=== PATIENT | female | born 1950 | race Caucasian/White ===

== ENCOUNTER 2020-02-28 07:58 | Outpatient (REF) | payer OTHER, SELFPAY | END 2020-02-28 07:59 | disposition home or self-care (01) | LOC: HO.LAB 07:58 | PROVIDERS: PCP Internal Medicine; Visit Provider Internal Medicine | DX: Z20.828 Contact with and (suspected) exposure to other viral communicable diseases (principal) | CPT/HCPCS: C9803; U0003 ==

== ENCOUNTER 2022-04-05 14:18 | Outpatient (REF) | payer OTHER, SELFPAY ==
--- NOTE | ~2022-04-05 | XR_ITS ---
EXAMINATION: THORACIC SPINE, LUMBAR SPINE, AND AP PELVIS. CLINICAL INFORMATION: DORSALGIA, LOW BACK PAIN, PELVIC PAIN. COMPARISON: February 12, [address] scan of March 05, 2010 TECHNIQUE: Three-view thoracic spine, three-view lumbar spine, and AP pelvis. FINDINGS: There has been mild interval superior endplate compression fracture of T12 without significant loss of height since previous spine study of February 27, [address] scan of March 05, 2010. There is mild marginal spurring seen at multiple levels without significant disc space narrowing appreciated. No destructive bony lesions identified. No abnormal paraspinal line bulge is seen. Pedicles appear intact. Patient is status post previous gastric surgery. 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 There are 5 nonrib-bearing lumbar vertebra. There is a mild compression fracture superior endplate of T12. This may be acute or chronic. There is moderate narrowing of the L5-S1 disc space. No spondylolisthesis or spondylolysis is appreciated. There is facet arthropathy seen bilaterally at the L5-S1 level. There is some degenerative sclerosis seen about the sacroiliac joints bilaterally. AP film of the pelvis does not demonstrate any evidence of acute fracture or diastases. Hip joint spaces appear maintained. No destructive bony lesions identified. XR/XR pelvis 1-2V IMPRESSION: No evidence of acute fracture or diastases of the pelvis. Mild superior endplate compression fracture of T12 which was not evident on previous studies and may be acute or chronic in nature. Facet arthropathy L5-S1 bilaterally.
--- NOTE | ~2022-04-05 | XR_ITS ---
EXAMINATION: THORACIC SPINE, LUMBAR SPINE, AND AP PELVIS. CLINICAL INFORMATION: DORSALGIA, LOW BACK PAIN, PELVIC PAIN. COMPARISON: February 12, [address] scan of March 05, 2010 TECHNIQUE: Three-view thoracic spine, three-view lumbar spine, and AP pelvis. FINDINGS: There has been mild interval superior endplate compression fracture of T12 without significant loss of height since previous spine study of February 27, [address] scan of March 05, 2010. There is mild marginal spurring seen at multiple levels without significant disc space narrowing appreciated. No destructive bony lesions identified. No abnormal paraspinal line bulge is seen. Pedicles appear intact. Patient is status post previous gastric surgery. 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 There are 5 nonrib-bearing lumbar vertebra. There is a mild compression fracture superior endplate of T12. This may be acute or chronic. There is moderate narrowing of the L5-S1 disc space. No spondylolisthesis or spondylolysis is appreciated. There is facet arthropathy seen bilaterally at the L5-S1 level. There is some degenerative sclerosis seen about the sacroiliac joints bilaterally. AP film of the pelvis does not demonstrate any evidence of acute fracture or diastases. Hip joint spaces appear maintained. No destructive bony lesions identified. XR/XR thoracic spine 3V IMPRESSION: No evidence of acute fracture or diastases of the pelvis. Mild superior endplate compression fracture of T12 which was not evident on previous studies and may be acute or chronic in nature. Facet arthropathy L5-S1 bilaterally.
--- NOTE | ~2022-04-05 | XR_ITS ---
EXAMINATION: THORACIC SPINE, LUMBAR SPINE, AND AP PELVIS. CLINICAL INFORMATION: DORSALGIA, LOW BACK PAIN, PELVIC PAIN. COMPARISON: February 12, [address] scan of March 05, 2010 TECHNIQUE: Three-view thoracic spine, three-view lumbar spine, and AP pelvis. FINDINGS: There has been mild interval superior endplate compression fracture of T12 without significant loss of height since previous spine study of February 27, [address] scan of March 05, 2010. There is mild marginal spurring seen at multiple levels without significant disc space narrowing appreciated. No destructive bony lesions identified. No abnormal paraspinal line bulge is seen. Pedicles appear intact. Patient is status post previous gastric surgery. 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 There are 5 nonrib-bearing lumbar vertebra. There is a mild compression fracture superior endplate of T12. This may be acute or chronic. There is moderate narrowing of the L5-S1 disc space. No spondylolisthesis or spondylolysis is appreciated. There is facet arthropathy seen bilaterally at the L5-S1 level. There is some degenerative sclerosis seen about the sacroiliac joints bilaterally. AP film of the pelvis does not demonstrate any evidence of acute fracture or diastases. Hip joint spaces appear maintained. No destructive bony lesions identified. XR/XR lumbar spine 2-3V IMPRESSION: No evidence of acute fracture or diastases of the pelvis. Mild superior endplate compression fracture of T12 which was not evident on previous studies and may be acute or chronic in nature. Facet arthropathy L5-S1 bilaterally.
== END 2022-04-05 14:19 | disposition home or self-care (01) ==
LOC: HO.HMGCX 14:18
PROVIDERS: PCP Internal Medicine; Visit Provider Physician Assistant
DX: M54.9 Dorsalgia, unspecified (principal); M54.50 Low back pain, unspecified; R10.2 Pelvic and perineal pain
CPT/HCPCS: 72072; 72100; 72170

== ENCOUNTER → 2022-06-10 09:54 | Outpatient (BNVA) | payer OTHER, SELFPAY | PROVIDERS: PCP Internal Medicine; Visit Provider Nurse Practitioner Family | DX: M51.36 Other intervertebral disc degeneration, lumbar region (principal); M47.816 Spondylosis without myelopathy or radiculopathy, lumbar region; M47.12 Other spondylosis with myelopathy, cervical region; M47.22 Other spondylosis with radiculopathy, cervical region; M70.61 Trochanteric bursitis, right hip; M70.62 Trochanteric bursitis, left hip | CPT/HCPCS: 99202 ==

== ENCOUNTER → 2022-06-30 08:25 | Outpatient (BNVA) | payer OTHER, SELFPAY | PROVIDERS: PCP Internal Medicine; Visit Provider Nurse Practitioner Family | DX: M51.36 Other intervertebral disc degeneration, lumbar region (principal); M47.816 Spondylosis without myelopathy or radiculopathy, lumbar region; M81.0 Age-related osteoporosis without current pathological fracture; M54.59 Other low back pain; M47.12 Other spondylosis with myelopathy, cervical region; M47.22 Other spondylosis with radiculopathy, cervical region; S22.080D Wedge compression fracture of T11-T12 vertebra, subsequent encounter for fracture with routine healing | CPT/HCPCS: 99212 ==

== ENCOUNTER 2022-07-21 19:16 | Outpatient (REF) | payer OTHER, SELFPAY ==
--- NOTE | ~2022-07-21 | MR_ITS ---
EXAMINATION: MR LUMBAR SPINE WITHOUT CONTRAST CLINICAL INFORMATION: Low back pain. COMPARISON: Lumbar spine radiographs 04/05/2022. TECHNIQUE: MRI of the lumbar spine was obtained using routine sequences without contrast. FINDINGS: There is bone marrow edema associated with an acute to subacute compression fracture of the T12 vertebral body. There is impaction of the upper endplate resulting in approximately 40% vertebral height loss anteriorly. No retropulsion of the posterior cortex at this level. Vertebral heights are otherwise maintained. There is slight grade 1 anterolisthesis of L5 on S1 that appears to be related to advanced facet degenerative changes at this level. Slight loss of intervertebral disc height and T2 signal intensity at multiple levels within the lumbar spine related to disc degeneration. The tip of the conus medullaris is located at L2. No mass effect on the conus. Visualized distal cord signal intensity is normal. At L1-L2 there is a slightly bulging disc. No canal stenosis. No mass effect on the traversing or foraminal nerve roots. At L2-L3 there is a bulging disc. Bilateral facet degenerative change. No canal stenosis. No mass effect on traversing or foraminal nerve roots. At L3-L4 there is a diffusely bulging disc. Bilateral facet degenerative change. Mild canal stenosis. No mass effect on the traversing or foraminal nerve roots. At L4-L5 there is a diffusely bulging disc. Advanced facet degenerative change. Mild canal stenosis. Subarticular zone narrowing causes abutment of both traversing L5 nerve roots. No foraminal nerve root compression. At L5-S1 there is a diffusely bulging disc. Advanced bilateral facet degenerative change. No canal stenosis. No substantial mass effect on the traversing or foraminal nerve roots. Limited visualization of the retroperitoneal anatomy reveals no abnormal finding. Psoas and paraspinal muscle groups are symmetric. MR/MR lumbar spine wo con IMPRESSION: There is bone marrow edema associated with an acute to subacute compression fracture of the T12 vertebral body. There is impaction of the upper endplate resulting in approximately 40% vertebral height loss anteriorly. No retropulsion of the posterior cortex at this level. There is multilevel degenerative spondylosis of the lumbar spine with slight grade 1 anterolisthesis of L5 on S1 related to advanced facet degenerative changes at this level. Mild canal stenosis at L3-L4 and L4-L5. Otherwise no canal compromise. Subarticular zone narrowing at L4-L5 causes abutment of both traversing L5 nerve roots. Otherwise no substantial mass effect on the traversing or foraminal nerve roots elsewhere within the lumbar spine.
== END 2022-07-21 19:17 | disposition home or self-care (01) ==
LOC: HO.MRI 19:16
PROVIDERS: PCP Internal Medicine; Visit Provider Nurse Practitioner Family
DX: M47.816 Spondylosis without myelopathy or radiculopathy, lumbar region (principal); M51.36 Other intervertebral disc degeneration, lumbar region; M81.0 Age-related osteoporosis without current pathological fracture; M54.59 Other low back pain
CPT/HCPCS: 72148

== ENCOUNTER → 2022-07-22 10:09 | Outpatient (REF) | payer OTHER, SELFPAY ==
--- NOTE | ~2022-07-22 | NM_ITS ---
EXAMINATION: NM BONE SCAN OF THE WHOLE BODY CLINICAL INFORMATION: Other intervertebral disc degeneration, lumbar region. COMPARISON: The previous bone scan dated 02/01/2008 is available for comparison. Radiographs of the lumbosacral and thoracic spine and pelvis dated 04/05/2022 and MRI of the lumbar spine dated 07/21/2022 are available for comparison. TECHNIQUE: Multiple gamma scintillation camera images of the whole body were performed 2.5 hours following the intravenous administration of 31 mCi Tc-99m MDP. FINDINGS: In the head, no significant abnormalities are present. In the thoracic cage and upper extremities, there is minimally increased activity in the acromioclavicular joints bilaterally and at the sternomanubrial articulation. In the spine, there is moderately increased activity in the T12 vertebral body. Foci of mildly increased activity are present bilaterally in the posterior elements at L5/S1 probably due to facet arthropathy and very faintly in the left side of the mid cervical spine, probably in the posterior elements and also probably due to to facet arthropathy. In the pelvis, no significant abnormalities are noted. In the lower extremities, there is mildly increased activity in the patellae bilaterally and a focus of mildly increased activity is present in the lateral malleolus of the left ankle. There is mildly increased activity in the right first metatarsophalangeal joint region. No other definite bony abnormalities are noted. The urinary bladder and faint visualization of both kidneys are noted. The 07/21/2022 MRI shows compression fracture deformity in the superior endplate of T12 that corresponds to the prominent bone scan abnormality described above on the current study. Also corresponding to the current study is bilateral facet arthropathy at L5/S1. NM/NM bone scan whole body IMPRESSION: 1. A recent compression traction is visualized at T12. 2. Additional mild abnormalities in the left side of the mid cervical spine and bilaterally at L5-S1 are likely due to facet arthropathy. 3. A few additional mild nonspecific abnormalities are noted as described above and these are all likely arthritic or traumatic in etiology. None of these abnormalities is strongly suspicious for metastatic disease.
== END ==
LOC: HO.NUCMED 10:09
PROVIDERS: PCP Internal Medicine; Visit Provider Nurse Practitioner Family
DX: M47.12 Other spondylosis with myelopathy, cervical region (principal); M47.22 Other spondylosis with radiculopathy, cervical region; M47.816 Spondylosis without myelopathy or radiculopathy, lumbar region; M51.36 Other intervertebral disc degeneration, lumbar region; M54.59 Other low back pain; M81.0 Age-related osteoporosis without current pathological fracture; S22.080A Wedge compression fracture of T11-T12 vertebra, initial encounter for closed fracture
CPT/HCPCS: 78306; A9503

== ENCOUNTER → 2022-07-26 14:21 | Outpatient (BNVA) | payer OTHER, SELFPAY | PROVIDERS: PCP Internal Medicine; Visit Provider Nurse Practitioner Family ==

== ENCOUNTER 2022-08-18 10:54 | Day surgery (SDC) | payer OTHER, SELFPAY ==
[2022-08-15 10:05] VITALS: BMI 38.2
--- NOTE | 2022-08-17 09:05 | HO.ANESPROP2 ---
Documented by User: Christi Vanessa NP 08/17/22 09:10 HPI - Anesthesia Eval Consult details Narrative: 72yo F for T12 Kyphoplasty Last labs and EKG requested from [facility] Active Problems Active Problems: All Active Problems (Updated 06/30/22 @ 15:08 by LETY Mendes) Discogenic lumbar pain (Acute) Lumbar spondylosis (Acute) Cervical spondylosis with myelopathy and radiculopathy (Acute) T12 compression fracture (Acute) Osteoporosis (Acute) Greater trochanteric bursitis of both hips (Acute) Lumbar degenerative disc disease (Acute) Past Medical History Medical History Cervical spondylosis with myelopathy and radiculopathy COPD (chronic obstructive pulmonary disease) Depression GERD (gastroesophageal reflux disease) Hyperlipidemia Left shoulder pain Left-sided weakness Lumbar spondylosis Osteoporosis T12 compression fracture Surgical History Surgical History H/O cervical spine surgery H/O: section History of gastric bypass Social History Social History Alcohol intake: current Alcohol intake frequency: a few times a month Patient Tobacco Use Status: Former Tobacco user Quit Date: 2007 Tobacco use type: Cigarette Smoked in Last 30 Days: No Use of substances other than those prescribed or required for medical reasons: No Substance Use Type: Caffiene Are you DNR?: No Advance Directives: No Advance Directives Information Provided: Yes Meds Allergies Allergy/AdvReac Type Severity Reaction Status Date / Time alendronate sodium Allergy Unknown Chest Pain Verified 08/18/22 11:15 [From Fosamax] Home Medications Medication Instructions Recorded Confirmed Last Taken Type albuterol sulfate 90 mcg/actuation 1 puff inhalation QID 04/05/22 08/18/22 08/18/22 History aerosol inhaler ergocalciferol (vitamin D2) 1,250 1,250 mcg PO QWEEK 04/05/22 08/18/22 08/18/22 History mcg (50,000 unit) capsule (Vitamin D2) fluoxetine 10 mg capsule 10 mg PO DAILY 04/05/22 08/18/22 08/18/22 History fluticasone fur. 100 mcg-umeclid 1 ea inhalation DAILY 04/05/22 08/18/22 08/18/22 History 62.5 mcg-vilant 25 mcg inhalat.powder (Trelegy Ellipta) rosuvastatin 10 mg tablet 10 mg PO BEDTIME 04/05/22 08/18/22 08/18/22 History Tylenol 08/18/22 08/18/22 History Exam Exam Date and Time: August 17, [id number] Height,Weight and Vital Signs: Height 5 ft Weight 88.904 kg Assessment and Plan Assessment Anesthesia Assessment: Chart Reviewed Documented by User: Tremayne Parks MD 08/18/22 14:45 [facility] Past Medical History Medical History Cervical spondylosis with myelopathy and radiculopathy COPD (chronic obstructive pulmonary disease) Depression GERD (gastroesophageal reflux disease) Hyperlipidemia Left shoulder pain Left-sided weakness Lumbar spondylosis Osteoporosis T12 compression fracture Family History Family history of problems with anesthesia: No Surgical History Surgical History H/O cervical spine surgery H/O: section History of gastric bypass Social History Social History Alcohol intake: current Alcohol intake frequency: a few times a month Patient Tobacco Use Status: Former Tobacco user Quit Date: 2007 Tobacco use type: Cigarette Smoked in Last 30 Days: No Use of substances other than those prescribed or required for medical reasons: No Substance Use Type: Caffiene Are you DNR?: No Advance Directives: No Advance Directives Information Provided: Yes Meds Allergies Allergy/AdvReac Type Severity Reaction Status Date / Time alendronate sodium Allergy Unknown Chest Pain Verified 08/18/22 11:15 [From Fosamax] Home Medications Medication Instructions Recorded Confirmed Last Taken Type albuterol sulfate 90 mcg/actuation 1 puff inhalation QID 04/05/22 08/18/22 08/18/22 History aerosol inhaler ergocalciferol (vitamin D2) 1,250 1,250 mcg PO QWEEK 04/05/22 08/18/22 08/18/22 History mcg (50,000 unit) capsule (Vitamin D2) fluoxetine 10 mg capsule 10 mg PO DAILY 04/05/22 08/18/22 08/18/22 History fluticasone fur. 100 mcg-umeclid 1 ea inhalation DAILY 04/05/22 08/18/22 08/18/22 History 62.5 mcg-vilant 25 mcg inhalat.powder (Trelegy Ellipta) rosuvastatin 10 mg tablet 10 mg PO BEDTIME 04/05/22 08/18/22 08/18/22 History Tylenol 08/18/22 08/18/22 History Exam Airway TM Dist: >3cm Neck ROM: Full Assessment and Plan Assessment Anesthesia Assessment: Anesthesia Plan Discussed Final Anesthetic Review Family History of Problems with Anesthesia: No NPO: Yes ASA Class: III Final Preanesthetic Review: No Changes in Pt Med Stat, Meds/Allgs Chart Reviewed, Consent Obtained/Reviewed and Anes Risks/Benef Reviewed Patient Risk: Intermediate Procedure Risk: Intermediate Anesthetic Plan Anesthetic Plan: MAC: Disposition: Standard PACU
--- NOTE | ~2022-08-18 | FL_ITS ---
EXAMINATION: XR FLUOROSCOPY WITH IMAGES CLINICAL INFORMATION: T12 kyphoplasty. COMPARISON: Radionuclide bone scan 07/22/2022, MR lumbar spine 07/21/2022 TECHNIQUE: Fluoroscopy Supervised By: Dr. Pancho Olsen. Fluoroscopy Time: 3 minutes. Cumulative Dose: 117.5 mGy. DAP: 16.783 Gycm2. Images: 2. FINDINGS: There is high attenuation density consistent with vertebral augmentation within the compressed T12 vertebral body. No extra vertebral contrast demonstrated. There are degenerative disc changes T11-T12. FL/FL guidance in OR IMPRESSION: Fluoroscopy for pain management procedure, T12 kyphoplasty.
[2022-08-18 11:17] VITALS: BP 137/75; PULSE 90; RESP 16; TEMP 36.3; O2SAT 96; BMI 37.9
[2022-08-18] MEDS: Lactated Ringers 1,000 ML 100 ML IVCONT (12:09)
--- NOTE | 2022-08-18 12:57 | P.HPSUR_ITS ---
Pre-Procedural Eval Section A Date of Service: 08/18/22 The patient is an INPATIENT: No Changes since office visit: Yes Patient answered all questions The History & Physical has been completed within 30 days and I have reviewed it.: No Section B Chief Complaint: wedge compression fx T11-T12 vertebra,osteoprosis Details of Present Illness: as above Relevant Family History (Specify if Yes): No Relevant Social History: Other (specify) Present Medications: None Medical History: No relevant PMH History of Previous Operations: No relevant previous surgery Allergies: Allergies Allergy/AdvReac Type Severity Reaction Status Date / Time alendronate sodium Allergy Unknown Chest Pain Verified 08/18/22 11:15 [From Fosamax] Review of Systems Sugical H&P ROS: Negative: Constitution, Cardiovascular, Respiratory, Neurological, Psychiatric, Hem-Onc, Allergic/Immunologic, Gastrointestinal, Genitourinary, Integumentary and Eyes/Ears/Nose/Throat and Yes, Specify: Mu sculoskeletal (spinal stenosis) and Endocrine (osteoporosis) Exam Surgical H&P Exam: Normal: HEENT, Normal: Heart, Normal: Lungs, Normal: Extremities, Normal: Abdomen, Normal: Skin and Normal: Neurological Plan Diagnosis/Plan: Unchanged I have reviewed the history and physical and performed a pertinent physical examination on my patient. No changes have occurred unless specified. Time Spent With Patient Time: Total time managing care of this patient today ____ minutes.
--- NOTE | 2022-08-18 15:13 | P.BOP_ITS ---
Brief Operative Note Date of Service: 08/18/22 Pre-op diagnosis: Osteoporosis T12 compression fracture Post-op diagnosis: same Procedure: T12 vertebra kyphoplasty Implants: polymethyl methacrylate Cement Surgeon: Pancho Olsen MD Anesthesia: MAC Was an Greenhouse Assistant used for this Procedure?: No Estimated blood loss (mL): 5 Condition: stable Disposition: PACU
[2022-08-18 15:15] VITALS: BP 120/70; PULSE 88; RESP 18; TEMP 36.5; O2SAT 97
--- NOTE | 2022-08-18 15:16 | W.PM.OPN ---
Operative Note Operative Note Date of Service: 08/18/22 Narrative: T12 baloon kyphoplasty. The patient was brought to the operating room positioned prone on the operating table. ASA monitors were applied and patient was moderately to deeply sedated. The back was prepped With ChloraPrep twice and draped with laparoscopic drape. The image intensifier (C-arm) was brought into position and the T12 pedicles were identified and marked with a skin marker. In view of the collapse of T12, a retropedicular approach to the vertebral body was appropriate. attention was attracted to the right side 1st. The diagonal line from the inferior contralateral corner to the superior ipsilateral right corner was made. One width of the vertebra was measured on the diagonal line extended further lateral to the right and this point was chosen as the entrance point. Local anesthetic was injected into the area, 11 blade was used to make a ari in the skin. After that osteo introducer with beveled stylets in it was advanced behind T12 pedicle alongside the right rib into the vertebral body on the right. The osteo introducer was continued to advance to the junction of the pedicle and vertebral body on the right side, care was taken not to cross over medial border of the pedicle. small mallet was used to drive the osteo introducer into the vertebral body. Positioning was confirmed on the AP and lateral plane. lateral image was taken to insure that the cannula was positioned approximately 1cm past the vertebral body wall. Through the cannula, a drill was advanced into the vertebral body under fluoroscopic guidance toward the anterior cortex, creating a channel. After that curetting device was inserted through the introducer and grating was performed into medial and cephalad direction. The hollow dull stylet was inserted into the right sided introducer. After that procedure was repeated in the me ring fashion from the left side.. After completing the entry into the vertebral body, a 15 mm inflatable Balloon was inserted through the cannula and advanced under fluoroscopic guidance into the vertebral body near the center of the vertebral body. The radiopaque marker bands on the balloon were identified using AP and lateral images. the balloon was inflated on the right side 1st and after that on the left side. The pressure off of inflation did not exceed 200 psi. After that sterilely prepared methyl methacrylate cement was used to feel of the cavities under direct view with the contrast observing feel of the cavities. Upon completion of the cavities feel the syringes introducing the cement into the vertebral body were removed the with 2 introducers were rotated several times on the axis and removed. 0 silk suture were used to close 2 incisions with 1 vertical mattress suture per each were incision Sterile dressing with bacitracin was applied.
[2022-08-18 15:30] VITALS: BP 113/66; PULSE 86; RESP 18; TEMP 36.5; O2SAT 97
== END 2022-08-18 15:58 | disposition home or self-care (01) ==
PROVIDERS: PCP Internal Medicine; Visit Provider Anesthesiology
PROC: (CPT 22514; principal; 2022-08-18 12:40)
DX: S22.080A Wedge compression fracture of T11-T12 vertebra, initial encounter for closed fracture (principal); Y99.9 Unspecified external cause status; M81.0 Age-related osteoporosis without current pathological fracture; M47.816 Spondylosis without myelopathy or radiculopathy, lumbar region; M51.36 Other intervertebral disc degeneration, lumbar region; M54.16 Radiculopathy, lumbar region; G89.29 Other chronic pain; M54.59 Other low back pain; M21.372 Foot drop, left foot; R26.2 Difficulty in walking, not elsewhere classified; M47.12 Other spondylosis with myelopathy, cervical region; E78.5 Hyperlipidemia, unspecified; J44.9 Chronic obstructive pulmonary disease, unspecified; Z88.8 Allergy status to other drugs, medicaments and biological substances; Z98.890 Other specified postprocedural states; Z87.891 Personal history of nicotine dependence
CPT/HCPCS: 22514; C1713; J0690; J2250; J2795; J3010; Q9967

== ENCOUNTER 2022-08-25 08:43 | Outpatient (REF) | payer OTHER, SELFPAY ==
--- NOTE | ~2022-08-25 | XR_ITS ---
EXAMINATION: XR HIPS, BILATERAL XR AP PELVIS XR SI JOINTS CLINICAL INDICATION: Sacrococcygeal disorders. Pain right hip. COMPARISON: AP pelvis 04/05/2022. FINDINGS: AP pelvis and bilateral hips: There is normal symmetry of bilateral hip joint space without bony erosive changes or loose bodies. SI joints are normal. No visible acute fracture, dislocation or bony erosive changes. The soft tissues are normal. SI joints: There is normal symmetry of SI joints without loss of joint space or sclerosis. Visualized sacrum and iliac bones are unremarkable. The soft tissues are normal. XR/XR hip BI w PEL1V IMPRESSION: 1. Unremarkable AP pelvis and bilateral hips. 2. Unremarkable SI joints.
--- NOTE | ~2022-08-25 | XR_ITS ---
EXAMINATION: XR HIPS, BILATERAL XR AP PELVIS XR SI JOINTS CLINICAL INDICATION: Sacrococcygeal disorders. Pain right hip. COMPARISON: AP pelvis 04/05/2022. FINDINGS: AP pelvis and bilateral hips: There is normal symmetry of bilateral hip joint space without bony erosive changes or loose bodies. SI joints are normal. No visible acute fracture, dislocation or bony erosive changes. The soft tissues are normal. SI joints: There is normal symmetry of SI joints without loss of joint space or sclerosis. Visualized sacrum and iliac bones are unremarkable. The soft tissues are normal. XR/XR sacroiliac joint min 3V IMPRESSION: 1. Unremarkable AP pelvis and bilateral hips. 2. Unremarkable SI joints.
== END 2022-08-25 08:44 | disposition home or self-care (01) ==
LOC: HO.XRAY 08:43
PROVIDERS: PCP Internal Medicine; Visit Provider Nurse Practitioner Family
DX: M53.3 Sacrococcygeal disorders, not elsewhere classified (principal); M25.551 Pain in right hip; M18.0 Bilateral primary osteoarthritis of first carpometacarpal joints; M51.36 Other intervertebral disc degeneration, lumbar region; M54.16 Radiculopathy, lumbar region; Z98.890 Other specified postprocedural states
CPT/HCPCS: 72202; 73521; 99212

== ENCOUNTER → 2022-09-01 09:00 | Outpatient (BNVA) | payer OTHER, SELFPAY | PROVIDERS: PCP Internal Medicine; Visit Provider Nurse Practitioner Family | DX: Z48.89 Encounter for other specified surgical aftercare (principal); M47.816 Spondylosis without myelopathy or radiculopathy, lumbar region; M81.0 Age-related osteoporosis without current pathological fracture; M51.36 Other intervertebral disc degeneration, lumbar region; M53.3 Sacrococcygeal disorders, not elsewhere classified; M25.551 Pain in right hip; M54.59 Other low back pain | CPT/HCPCS: 99212 ==

== ENCOUNTER → 2022-10-19 14:23 | Outpatient (BNVA) | payer OTHER, SELFPAY | PROVIDERS: Visit Provider Neurological Surgery | DX: M48.062 Spinal stenosis, lumbar region with neurogenic claudication (principal) | CPT/HCPCS: 99202 ==

== ENCOUNTER 2022-12-13 05:54 | Day surgery (SDC) | payer OTHER, SELFPAY ==
--- NOTE | 2022-11-28 | ECG_ITS ---
Test Reason : PREOP Blood Pressure : / mmHG Vent. Rate : 081 BPM Atrial Rate : 081 BPM P-R Int : 122 ms QRS Dur : 064 ms QT Int : 392 ms P-R-T Axes : 068 033 011 degrees QTc Int : 455 ms Normal sinus rhythm Nonspecific ST abnormality Abnormal ECG When compared with ECG of 29-SEP-2008 02:10, Nonspecific ST abnormality is now Present Referred By: Christi Vanessa Electronically Signed By:IRENA FRITZ
[2022-11-28 14:01] VITALS: BP 128/64; PULSE 88; RESP 20; O2SAT 96; BMI 36.7
--- NOTE | 2022-11-28 14:20 | P.CONAN_ITS ---
Documented by User: Christi Vanessa NP 12/12/22 09:02 HPI - Anesthesia Eval Consult details Narrative: 72yo F for Right L4-5 MicroLumbar Decompression, 12/13/22 s/p kyphoplasty 08/2022 with TIVA without issues per patient COPD/Asthma - well controlled without need for albuterol. Treligy daily GERD - well controlled on ppi Recent UTI with abx treatment - symptoms resolved with PAT Recent molar extraction right upper, root canal in process left upper No recent cold/flu No CP/SOB. Activity very limited to pain PMFSH Active Problems Active Problems: All Active Problems (Updated 11/28/22 @ 13:56 by Pati Talavera RN) Lumbar degenerative disc disease (Acute) Greater trochanteric bursitis of both hips (Acute) Discogenic lumbar pain (Acute) Right hip pain (Acute) Sacroiliac joint dysfunction of right side (Acute) Status post kyphoplasty (Acute) Lumbar back pain with radiculopathy affecting left lower extremity (Acute) Lumbar stenosis with neurogenic claudication (Acute) Lumbar spondylosis (Acute) Cervical spondylosis with myelopathy and radiculopathy (Acute) T12 compression fracture (Acute) Osteoporosis (Acute) Past Medical History Medical History (Updated 11/28/22 @ 13:56 by Pati Talavera RN) Arthritis Cervical spondylosis with myelopathy and radiculopathy COPD (chronic obstructive pulmonary disease) Depression GERD (gastroesophageal reflux disease) Hyperlipidemia Left shoulder pain Left-sided weakness Lumbar spondylosis Osteoporosis T12 compression fracture Urinary tract infection Family History Family history of problems with anesthesia: No Surgical History Surgical History (Updated 11/28/22 @ 13:57 by Pati Talavera RN) H/O cervical spine surgery H/O colonoscopy H/O: section History of sleeve gastrectomy Hx of kyphoplasty History of Problems with Anesthesia: No Social History Social History Are you a primary direct care provider to a significant other at home: No Do you presently have visiting nurse or other home services: No Alcohol intake: current Alcohol intake frequency: holidays/special occasions only Patient Tobacco Use Status: Former Tobacco user Quit Date: 2007 Tobacco use type: Cigarette Use of substances other than those prescribed or required for medical reasons: No Substance Use Type: Caffiene Have you been hit, kicked, punched, or otherwise hurt by someone within the past year? If so, by whom?: No Are you DNR?: No Advance Directives Information Provided: Yes (as above noted) Advance Directives on File: No Recently lost weight without trying: No Eating poorly because of decreased appetite: No Nutrition Risks: No Nutritional Risk Poor oral hygiene: No (upper right tooth extraction 11/21/22 & root canal repair upper left 11/23/22) Meds Allergies Allergy/AdvReac Type Severity Reaction Status Date / Time alendronate sodium Allergy Intermediate Chest Pain Verified 11/28/22 13:57 [From Fosamax] Home Medications Medication Instructions Recorded Confirmed Last Taken Type albuterol sulfate 90 mcg/actuation 1 puff inhalation QID PRN 04/05/22 11/28/22 12/13/22 History aerosol inhaler Shortness Of Breath ergocalciferol (vitamin D2) 1,250 1,250 mcg PO QWEEK 04/05/22 11/28/22 08/18/22 History mcg (50,000 unit) capsule (Vitamin D2) fluoxetine 10 mg capsule 10 mg PO DAILY 04/05/22 11/28/22 08/18/22 History fluticasone fur. 100 mcg-umeclid 1 ea inhalation DAILY 04/05/22 11/28/22 08/18/22 History 62.5 mcg-vilant 25 mcg inhalat.powder (Trelegy Ellipta) rosuvastatin 10 mg tablet 10 mg PO BEDTIME 04/05/22 11/28/22 08/18/22 History multivitamin 1 tab PO QAM 11/28/22 11/28/22 Unknown History omeprazole 20 mg capsule,delayed 20 mg PO DAILY 11/28/22 11/28/22 12/13/22 History release trazodone 50 mg tablet 50 mg PO BEDTIME 11/28/22 11/28/22 Unknown History Exam Exam Date and Time: November 28, 2022 142 Height,Weight and Vital Signs: Height 5 ft 1 in Weight 87.997 kg Last Vital Signs Pulse 88 11/28/22 14:01 Resp 20 11/28/22 14:01 BP 128/64 11/28/22 14:01 Pulse Ox 96 11/28/22 14:01 O2 Del Method Room Air 11/28/22 14:01 Pertinent Lab Results Pertinent Lab Results: Lab Results 11/28/22 11/28/22 Range/Units 14:57 14:57 WBC 8.0 (4.8-10.8) X10*3/uL RBC 4.26 (4.20-5.50) X10*6/uL Hgb 13.0 (12.0-16.0) g/dl Hct 40.6 (37.0-47.0) % MCV 95.3 (80.0-98.0) fL MCH 30.5 (27.0-33.0) pg MCHC 32.0 (31.0-35.0) g/dl RDW 13.2 (11.0-16.0) % Plt Count 230 (160-400) X10*3/uL MPV 11.1 (9.4-12.3) fL Absolute Nucleated RBC 0.000 (0.0-0.012) X10*3/uL Nucleated RBC % (auto) 0.0 (0.0-0.2) /100WBC Sodium 141 (135-145) mmol/L Potassium 4.1 (3.3-5.1) mmol/L Chloride 107 (96-108) mmol/L Carbon Dioxide 28 (22-29) mmol/L Anion Gap 10 L (12-20) BUN 12 (9-16) mg/dL Creatinine 0.81 (0.5-1.4) mg/dL Estim Creat Clear Calc 63.2 Estimated GFR > 60 Random Glucose 98 (60-115) mg/dL Calcium 9.3 (8.4-10.2) mg/dL Narrative Narrative: EKG 11/2022 Vent. Rate : 081 BPM ? ? Atrial Rate : 081 BPM ?? P-R Int : 122 ms? QRS Dur : 064 ms ? ? QT Int : 392 ms ? ? ? P-R-T Axes : 068 033 011 degrees ?? QTc Int : 455 ms ? Normal sinus rhythm Nonspecific ST abnormality Abnormal ECG When compared with ECG of 29-SEP-2008 02:10, No significant change was found Airway Mallampati Class: II TM Dist: <=3cm Neck ROM: Full Loose/Missing/Broken Teeth: Yes (Left upper molar pulled) Heart: RRR Lungs: CTAB Assessment and Plan Assessment Anesthesia Assessment: Anesthesia Plan Discussed and PAT Visit Final Anesthetic Review Family History of Problems with Anesthesia: No History of Problems with Anesthesia: No Documented by User: Benitez Smith MD 12/13/22 07:22 [facility] Past Medical History Medical History (Updated 11/28/22 @ 13:56 by Pati Talavera RN) Arthritis Cervical spondylosis with myelopathy and radiculopathy COPD (chronic obstructive pulmonary disease) Depression GERD (gastroesophageal reflux disease) Hyperlipidemia Left shoulder pain Left-sided weakness Lumbar spondylosis Osteoporosis T12 compression fracture Urinary tract infection Surgical History Surgical History (Updated 11/28/22 @ 13:57 by Pati Talavera RN) H/O cervical spine surgery H/O colonoscopy H/O: section History of sleeve gastrectomy Hx of kyphoplasty Social History Social History Are you a primary direct care provider to a significant other at home: No Do you presently have visiting nurse or other home services: No Alcohol intake: current Alcohol intake frequency: holidays/special occasions only Patient Tobacco Use Status: Former Tobacco user Quit Date: 2007 Tobacco use type: Cigarette Use of substances other than those prescribed or required for medical reasons: No Substance Use Type: Caffiene Have you been hit, kicked, punched, or otherwise hurt by someone within the past year? If so, by whom?: No Are you DNR?: No Advance Directives Information Provided: Yes (as above noted) Advance Directives on File: No Recently lost weight without trying: No Eating poorly because of decreased appetite: No Nutrition Risks: No Nutritional Risk Poor oral hygiene: No (upper right tooth extraction 11/21/22 & root canal repair upper left 11/23/22) Meds Allergies Allergy/AdvReac Type Severity Reaction Status Date / Time alendronate sodium Allergy Intermediate Chest Pain Verified 11/28/22 13:57 [From Fosamax] Home Medications Medication Instructions Recorded Confirmed Last Taken Type albuterol sulfate 90 mcg/actuation 1 puff inhalation QID PRN 04/05/22 11/28/22 12/13/22 History aerosol inhaler Shortness Of Breath ergocalciferol (vitamin D2) 1,250 1,250 mcg PO QWEEK 04/05/22 11/28/22 08/18/22 History mcg (50,000 unit) capsule (Vitamin D2) fluoxetine 10 mg capsule 10 mg PO DAILY 04/05/22 11/28/22 08/18/22 History fluticasone fur. 100 mcg-umeclid 1 ea inhalation DAILY 04/05/22 11/28/22 08/18/22 History 62.5 mcg-vilant 25 mcg inhalat.powder (Trelegy Ellipta) rosuvastatin 10 mg tablet 10 mg PO BEDTIME 04/05/22 11/28/22 08/18/22 History multivitamin 1 tab PO QAM 11/28/22 11/28/22 Unknown History omeprazole 20 mg capsule,delayed 20 mg PO DAILY 11/28/22 11/28/22 12/13/22 History release trazodone 50 mg tablet 50 mg PO BEDTIME 11/28/22 11/28/22 Unknown History Assessment and Plan Final Anesthetic Review NPO: Yes ASA Class: III Final Preanesthetic Review: No Changes in Pt Med Stat, Meds/Allgs Chart Reviewed, Consent Obtained/Reviewed and Anes Risks/Benef Reviewed Patient Risk: Intermediate Procedure Risk: Intermediate Anesthetic Plan Anesthetic Plan: GA and Agree w/ Assess. and Plan Disposition: Standard PACU
[2022-11-28 16:18] LABS: Hematocrit 40.6 % (37.0-47.0); Mean Corpuscular Hemoglobin 30.5 pg (27.0-33.0); Mean Corpuscular Volume 95.3 fL (80.0-98.0); Mean Platelet Volume 11.1 fL (9.4-12.3); Platelet Count 230 X10*3/uL (160-400); Red Blood Count 4.26 X10*6/uL (4.20-5.50); Red Cell Distribution Width 13.2 % (11.0-16.0)
[2022-11-29 01:44] LABS: Anion Gap 10 (12-20); Blood Urea Nitrogen 12 mg/dL (9-16); Calcium 9.3 mg/dL (8.4-10.2); Carbon Dioxide 28 mmol/L (22-29); Chloride 107 mmol/L (96-108); Creatinine Clr Calc Pharmacy 63.2; Estimated Glomerular Filt Rate > 60; Glucose Random 98 mg/dL (60-115); Potassium 4.1 mmol/L (3.3-5.1); Sodium 141 mmol/L (135-145)
[2022-12-13] VITALS (9 sets, daily range): BP systolic 111–155; BP diastolic 61–87; PULSE 77–89; RESP 16–20; TEMP 36.2–36.9; O2SAT 94–99; BMI 36.8
--- NOTE | ~2022-12-13 | FL_ITS ---
EXAMINATION: XR FLUOROSCOPY WITH IMAGES CLINICAL INFORMATION: L4-L5 microlumbar decompression, right. COMPARISON: None available. TECHNIQUE: Fluoroscopy Supervised By: Dr. Davy Rojas. Fluoroscopy Time: 0.0 (less than 1 minute). Cumulative Dose: 2.35 mGy. DAP: 0.640 Gycm2. Images: 2. FINDINGS: Images demonstrate needle placement and surgical instruments projecting over the posterior elements posterior to the L4-L5 disc space. FL/FL guidance in OR IMPRESSION: Fluoroscopy guidance for lumbar spine surgery.
[2022-12-13] MEDS: Lactated Ringers 1,000 ML 100 ML IVCONT (06:55)
[2022-12-13] MEDS: Gabapentin 300 MG CAPSULE PO (07:00)
[2022-12-13] MEDS: methocarbamoL 750 MG TABLET PO (07:00)
--- NOTE | 2022-12-13 07:00 | MHC.SHP ---
Pre-Procedural Eval Section A Date of Service: 12/13/22 Section B Chief Complaint: Spinal stenosis, lumbar region with neurogenic cla Allergies: Allergies Allergy/AdvReac Type Severity Reaction Status Date / Time alendronate sodium Allergy Intermediate Chest Pain Verified 11/28/22 13:57 [From Fosamax] Review of Systems Sugical H&P ROS: Negative: Constitution, Cardiovascular, Respiratory, Neurological, Psychiatric, Hem-Onc, Allergic/Immunologic, Gastrointestinal, Genitourinary, Musculoskeletal, Integumentary, Endocrine and Eyes/Ears/Nose/Throat Plan I have reviewed the history and physical and performed a pertinent physical examination on my patient. No changes have occurred unless specified. Plan remains the same, R L4-5 microdiskectomy Time Spent With Patient Time: Total time managing care of this patient today _10___ minutes.
--- NOTE | 2022-12-13 08:43 | P.OP_ITS ---
Operative Note Operative Note Date of Service: 12/13/22 Narrative: Preoperative Diagnosis: Right L4-5 spinal stenosis/lateral recess stenosis/neural foraminal stenosis Operation: L4-5 Laminotomy, Partial facetectomy and foraminotomy with use of microscope Consent Informed Consent was obtained for this operation. I have explained the nature, purpose and benefits of the operation. I have discussed the risks and benefit of the operation including possible complications or adverse events with patient/family. Alternative(s) were discussed with the patient with their relative benefits and risks as well as the consequences of not accepting the operation were included in obtaining consent. Surgeon: JOHANNA GIFFORD MD, PHD Procedure Assisted By: Seth Sagastume Pac] Description of Procedure This 73-year-old female suffering from right unilateral neurogenic claudication due to lateral recess stenosis.. The patient was offered a decompression. The procedure complications were explained. The patient was consented. The patient was brought to the operating room and endotracheally intubated. The patient was turned in prone position on the Jack frame. Prep and drape was done followed by timeout. The Physician per diem physical therapist assistant provided access. A mid lumbar incision was made followed by release of the paravertebral muscle on the right side to expose the L4-5 lamina and facet joints. An intraoperative x-ray was obtained to confirm the correct level. The microscope was brought in. I took over the procedure. The high-speed drill was used to do a L4-5 laminotomy until flavum ligament was reached. a 2. Kerrison was used to expand the laminotomy near flush to the pedicles and to include a partial facetectomy. The flavum and was opened and resected with a 3. Kerrison to decompress the underlying thecal sac. The flavum ligament was removed to decompress the lateral recess and the exiting L5 nerve root. A long nerve hook could be easily passed along the medial side of the pedicle as a sign of adequate decompression. The microscope was removed. Hemostasis was done. The physician per diem physical therapist assistant close the Incision in 2 layers. Steri-Strips were used to approximate incision. An OpSite with Tegaderm was used to cover the incision. All sponge needle counts were correct. Patient was extubated and transported in stable is to recovery room. Anesthesia: General Estimated Blood Loss (ml): Minimal Complications: None Duration of Surgery: Under 60 Minutes Postoperative Plan: Discharge to home
--- NOTE | 2022-12-13 08:52 | PM.DS ---
DS: Providers Provider Date of Service: 12/13/22 Date of discharge: 12/13/22 Primary care physician: Johan Aldridge III, MD Admitting clinician: Davy Rojas DS: Diagnosis Discharge Diagnosis (1) Lumbar degenerative disc disease: Status: Acute DS: Summary Time Spent with Patient Time attestation: Total time managing care of this patient today ____ minutes. Discharge coordination time: Less than 30 minutes Quality: Safe Use of Opioids Does Pt have an Active Cancer Diagnosis on the Problem List?: No Quality: Stroke Does the patient have a stroke diagnosis?: No Physical Exam Vital Signs: Vital Signs: Last Vital Signs Temp 97.8 F 12/13/22 06:23 Pulse 84 12/13/22 06:23 Resp 18 12/13/22 06:23 BP 130/73 12/13/22 06:23 Pulse Ox 97 12/13/22 06:23 O2 Del Method Room Air 12/13/22 06:23 BMI result Body Mass Index 36.8 DS: Data Data Completed and Pending Labs on day of discharge: Laboratory Results - last 24 hr 12/13/22 06:45 Blood Type O Positive Antibody Screen NEGATIVE Discharge Plan Discharge Patient Disposition: Home, Self-Care Referrals: Johan Aldridge III, MD [Primary Care Provider] - 1 Week Discharge Medications: New docusate sodium [Colace] 100 mg capsule 100 mg PO BID Qty: 20 0RF oxycodone 5 mg tablet 5 mg PO Q6-8H PRN (Reason: pain) Qty: 20 0RF Rx Instructions: Partial Fill upon patient request. Continued oxycodone 5 mg tablet 5 mg PO Q8H MDD 3 pills PRN (Reason: postoperative pain) 5 Days Qty: 14 0RF Rx Instructions: Partial Fill upon patient request. multivitamin Tablet 1 tab PO QAM trazodone 50 mg tablet 50 mg PO BEDTIME omeprazole 20 mg Capsule,Delayed Release(Dr/Ec) 20 mg PO DAILY rosuvastatin 10 mg tablet 10 mg PO BEDTIME fluoxetine 10 mg capsule 10 mg PO DAILY ergocalciferol (vitamin D2) [Vitamin D2] 1,250 mcg (50,000 unit) capsule 1,250 mcg PO QWEEK Trelegy Ellipta 100-62.5-25 mcg blister with device 1 ea inhalation DAILY albuterol sulfate 90 mcg/actuation HFA aerosol inhaler 1 puff inhalation QID PRN (Reason: Shortness Of Breath) cyclobenzaprine 10 mg tablet 10 mg PO BEDTIME PRN (Reason: muscle spasm) Qty: 14 0RF Discharge Orders: Discharge Order (Routine); Ordered 12/13/22 Ordered By: Seth Sagastume Diet: Advance to usual diet Activity on Discharge: As tolerated Activity Restrictions/Additional Instructions: After your spinal surgery we ask you to observe the following restrictions/guidelines: Activity: It is normal to feel some discomfort as you increase your activity, but that will improve with time. We ask you avoid heavy lifting or acitivities that cause pain. As a general rule, 8lbs is a safe limit for lifting right after surgery. Walk as much as you feel comfortable but not to exhaustion. You will feel extra tired the first few days after surgery. Stay well hydrated. It is OK to walk up and down stairs You may return to driving when you are off narcotics (such as vicodin, oxycodone, dilaudid, etc), and you are back to normal functional capacity. If you have any concerns please check with office before driving. Return to work is specific to each patient and each surgery, so please speak with your doctor/PA at first follow up. Please bring paperwork such as FMLA at that time if you need it filled out. Medications: For optimum pain control, it is best to start with a combination of 500 mg of Tylenol every 4 hours with 600 mg of Motrin every 8 hours, and use narcotics as needed in between for breakthrough pain. We will give you a short supply of narcotics after surgery (usually one weeks worth). If you need more please call the office but do not use more than prescribed. You will need to give our office 48 hours notice if you need narcotics refilled and we do not fill narcotics on weekends or evenings. If you are on a narcotic, it is a good idea to take a stool softener such as colace or senna to avoid constipation If you take blood thinner such as aspirin, Plavix, Coumadin, Effient, Eliquis etc for conditions such as Afib, DVT, Pulmonary embolus, coronary disease, stents etc please speak with your surgeon about specific details as to when you can resume these medications. You can resume NSAIDs on post op day 1 (eg: Motrin, Naproxen, etc). Follow up: Please call the office, , after surgery to arrange a 3 week follow up for wound check. Wound Care: You may remove your dressing on the first day after surgery. You may leave open to air. Please do not remove the steri strips underneath. they will fall off on their own in one week. IT IS NORMAL FOR THE WOUND TO OOZE OR BE BLOODY FOR A FEW DAYS AFTER SURGERY. IF THIS HAPPENS JUST PLACE NEW DRESSING OVER IT TO AVOID STAINING CLOTHES. You may shower on post op day # 1 We ask that you do not let the water soak the wound. If it does get wet, just towel dry lightly. Please do not scrub your incision or place any type of chemical/ointment on the wound. No tub baths, pools or jacuzzis for one month. If you have any leaking or redness from your wound, or fevers, please call office
[2022-12-13] MEDS: oxyCODONE HCl Immed Release 5 MG TABLET PO (10:08)
== END 2022-12-13 10:54 | disposition home or self-care (01) ==
PROVIDERS: Nurse Practitioner; PCP Internal Medicine; Visit Provider Neurological Surgery
PROC: (CPT 63047; principal; 2022-12-13 07:30)
DX: M48.062 Spinal stenosis, lumbar region with neurogenic claudication (principal); M51.36 Other intervertebral disc degeneration, lumbar region; R26.89 Other abnormalities of gait and mobility; R26.2 Difficulty in walking, not elsewhere classified; Z98.890 Other specified postprocedural states; Z98.84 Bariatric surgery status; Z79.899 Other long term (current) drug therapy; Z88.8 Allergy status to other drugs, medicaments and biological substances
CPT/HCPCS: 63047; 36415; 80048; 85027; 86850; 86900; 86901; 93005; J0131; J0690; J1100; J1885; J2250; J2371; J2405; J3010

== ENCOUNTER → 2022-12-13 05:54 | Outpatient (BNV) | payer OTHER, SELFPAY | PROVIDERS: PCP Internal Medicine; Visit Provider Neurological Surgery | DX: M48.062 Spinal stenosis, lumbar region with neurogenic claudication (principal); M51.36 Other intervertebral disc degeneration, lumbar region | CPT/HCPCS: 63047 ==

== ENCOUNTER 2023-01-13 12:35 | Outpatient (AMB) | payer OTHER, SELFPAY ==
--- NOTE | 2023-01-13 12:58 | HO.SPINEOV ---
Intake Intake Visit Reasons: 1st post-op Intake Note: Mrs. Mccoy is here today for her 1st post-op visit. 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 She is accompanied by her who has been helping her with her postoperative healing process. She states that she is feeling much better than she did preoperatively. She no longer has significant pain in her hip/low back. She does endorse some continued difficulty with walking, and feels that her left lower extremity continues to feel ?limp. She is able to ambulate relatively well, and feels that she is able to accomplish the majority of her ADLs. Her inquired about seeking out an orthopedic referral for continued lower extremity symptoms. They also raised questions about physical therapy. They were advised to hold off on both of these services until she comes in for her 2nd postoperative appointment, we will have a better idea of how her healing is progressing. Full mobility in upper and lower extremities. Patient has a somewhat antalgic gait needs to ambulate with a cane. Sensation is grossly intact. Incision site is non-edematous, clean, and well healing. Kathya will need to make an appointment to follow up with us in 6 weeks. She was informed that if she is doing much better by this time we will not make a follow-up appointment for. Fernandez Rojas MD,PhD [facility] Coding Level of Care Code Global (14576) Diagnoses Status post lumbar spine surgery for decompression of spinal cord Z98.890
== END 2023-01-13 13:10 | disposition home or self-care (01) ==
PROVIDERS: PCP Internal Medicine; Visit Provider Physician Assistant
DX: Z98.890 Other specified postprocedural states (principal)
CPT/HCPCS: 99024

== ENCOUNTER → 2023-01-13 12:35 | Outpatient (BNVA) | payer OTHER, SELFPAY | PROVIDERS: PCP Internal Medicine; Visit Provider Physician Assistant ==

== ENCOUNTER 2023-02-24 12:41 | Outpatient (AMB) | payer OTHER, SELFPAY ==
--- NOTE | 2023-02-24 13:09 | A.SPINEOV_ITS ---
Intake Intake Visit Reasons: 2nd post op Intake Note: Mrs. Mccoy is here today for her 2nd post op visit. 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 She reports that she has had complete resolution of the pain in her right hip and down her right thigh, and is very satisfied with her surgery. She is now however concerned that she has some instability with standing which she feels she may have only began to notice now because her pain has subsided. She reports she is much more satisfied with her day-to-day pain control, and is able to complete the majority of her daily living activities. We discussed the possibility of physical therapy which she feels would be very helpful for her as it has helped her in the past. Overall she states she is doing very well. No neurological deficits. Patient is able to ambulate well the assistance of a cane. Rises from a seated position without much difficulty. Incision site is healed without signs of drainage. The plan going forward is going to be to have Kathya follow up with us as needed. There is no need for routine follow-up. I will place a referral for physical therapy. Fernandez Rojas MD,PhD [facility] Orders: Orders PT Evaluation and Treatment 02/24/23 Z98.890 - Other specified postprocedural states Coding Level of Care Code Global (99048) Diagnoses Status post lumbar spine surgery for decompression of spinal cord Z98.890
== END 2023-02-24 13:46 | disposition home or self-care (01) ==
PROVIDERS: PCP Internal Medicine; Visit Provider Physician Assistant
DX: Z98.890 Other specified postprocedural states (principal)
CPT/HCPCS: 99024

== ENCOUNTER → 2023-02-24 12:41 | Outpatient (BNVA) | payer OTHER, SELFPAY | PROVIDERS: PCP Internal Medicine; Visit Provider Physician Assistant | DX: Z98.890 Other specified postprocedural states (principal) | CPT/HCPCS: 99212 ==

== ENCOUNTER 2023-04-27 11:00 | Outpatient (RCR) | payer OTHER, SELFPAY ==
--- NOTE | 2023-03-17 12:03 | MHC.PT.EP ---
[facility] [place] Office [place] Office [place] Office [address] Raysa Lopez [address] [phone] F: [phone] F: [phone] F: [phone] F: [phone] Physical Therapy Plan of Care Date of Evaluation: 03/17/23 Date of Surgery: 12/13/2022 Diagnosis: spinal stenosis, lumbar w/ neurogenic claudication Assessment: Patient is a 73 year old female presenting to PT s/p L4-5 laminotomy on 12/13/2022. She presents today with really with no impairments as a result of the surgery but over the last 3 years has been experiencing foot drop on the L foot, impairments in balance, general LE strength, and impaired TUG and DGI scores. Pt's current occupation is none, with baseline physical activities including ambulating, ADLs, stair negotiation. Pt expresses chcf goal of walking better, and is motivated to work towards this in PT. Clinical presentation today is most consistent with signs and sx associated with possible L foot drop and pt will benefit from skilled PT 2 week x 4 weeks to address the following problems and impairments noted upon evaluation: foot drop on the L foot, impairments in balance, general LE strength, and impaired TUG and DGI scores. These problems limit the patient with the following functional activities: ambulating, ADLs, stair negotiation. The prescribed treatment plan of care is medically necessary. Co-morbidities of osteoporosis, L4/5 laminotomy were identified and taken into considerations of plan of care. Pt was educated on HEP, role of PT, prognosis, POC. Frequency and Duration: The patient will be seen 2 x week x 4 weeks Short Term Goals: Pt will bring in AFO for assessment with gait in 1 visit. Pt will demonstrate ability to perform STS with good control on the descent in 2 weeks. Jail Goals: Pt will demonstrate improved DGI score by 3 points in 4 weeks for decreased risk of falls. Pt will demonstrate improved TUG score by 3 seconds in 4 weeks for decreased risk of falls. Treatment Plan: Modalities to reduce pain, spasms and effusion. Manual therapy to restore motion and function. Therapeutic exercise to improve strength and flexibility. Neuromuscular re-education for posture and balance. Therapeutic activities to return to functional activities of daily living. Electronically signed by: Ariadne Vaca, PT, DPT, ATC Please sign and return to therapist. Thank you for your referral.
--- NOTE | 2023-04-27 13:00 | MHC.PT.DC ---
[facility] [place] Office [place] [facility] [place] [facility] [address] Raysa Lopez [address] [phone] F: [phone] F: [phone] F: [phone] F: [phone] Physical Therapy Discharge Report Diagnosis: spinal stenosis, lumbar w/ neurogenic claudication Date of Surgery: 12/13/2022 Date of Evaluation: 03/17/23 Date of Discharge: 04/27/23 Treatments to Date: 7 Cancellations to Date: 0 No Shows to Date: 0 Discharge Status: Recommend MD Follow-up Discharge Summary: 04/27/2023: Pt has made minimal improvement since start of care. She currently demonstrates no change on the DGI and actually has worsened on the TUG. She has been wearing her AFO however she continues to have drop foot causing her to drag her toes and limit her gait and ultimately safety. She still has difficulty overall on the L side. At this time max benefits of PT have been provided and skilled PT is no longer indicated. Advised pt to follow up with specialist regarding her continued gait deviations. Pt in agreement with plan and actually has an appointment scheduled in a couple weeks. Electronically signed by: Ariadne Vaca, PT, DPT, ATC Please sign and return to therapist. Thank you for your referral.
== END 2023-04-27 13:00 | disposition home or self-care (01) ==
LOC: HO.PTCHIC 11:00
PROVIDERS: PCP Internal Medicine; Visit Provider Physician Assistant
DX: M48.062 Spinal stenosis, lumbar region with neurogenic claudication (principal)
CPT/HCPCS: 97110; 97112; 97116; 97162

== ENCOUNTER 2023-07-07 00:50 | Emergency (ER) | payer OTHER, SELFPAY ==
[2023-07-07 00:53] VITALS: BP 139/71; PULSE 97; RESP 20; TEMP 36.9; O2SAT 93; BMI 36.9
[2023-07-07 01:15] LABS: MANUAL DIFF FLAG NO
[2023-07-07 01:17] LABS: Basophils Percent Auto 0.2 % (0-2); Eosinophils Absolute Auto 0.2 X10*3/uL (0.0-0.4); Eosinophils Percent Auto 2.2 % (0-4); Hematocrit 38.1 % (37.0-47.0); Hemoglobin 12.7 g/dl (12.0-16.0); Imm Gran Abs Auto 0.03 X10*3/uL (0.00-0.03); Imm Gran Pct Auto 0.3 % (0.0-0.4); Lymphocytes Absolute Auto 1.7 X10*3/uL (1.2-4.9); Lymphocytes Percent Auto 16.3 % (20-40); Mean Corpuscular HGB Conc 33.3 g/dl (31.0-35.0); Mean Corpuscular Volume 92.9 fL (80.0-98.0); Mean Platelet Volume 9.8 fL (9.4-12.3); Monocytes Absolute Auto 0.8 X10*3/uL (0.1-1.2); Monocytes Percent Auto 7.4 % (2-11); Neutrophils Absolute Auto 7.6 x10*3/uL (2.0-8.3); Neutrophils Percent Auto 73.6 % (45-73); Platelet Count 203 X10*3/uL (160-400); Red Cell Distribution Width 13.4 % (11.0-16.0); White Blood Count 10.3 X10*3/uL (4.8-10.8)
[2023-07-07 01:29] LABS: Alanine Aminotransferase 15 U/L (0-31); Albumin Level 4.2 g/dL (3.5-5.0); Alkaline Phosphatase 75 U/L (39-117); Anion Gap 13 (12-20); Aspartate Amino Transferase 19 U/L (5-31); Bilirubin Direct 0.2 mg/dL (0.0-0.5); Bilirubin Total 0.5 mg/dL (0.0-1.0); Blood Urea Nitrogen 12 mg/dL (9-16); Calcium 9.2 mg/dL (8.4-10.2); Carbon Dioxide 22 mmol/L (22-29); Chloride 106 mmol/L (96-108); Creatinine Clr Calc Pharmacy 63.8; Estimated Glomerular Filt Rate > 60; Glucose Random 159 mg/dL (60-115); Sodium 137 mmol/L (135-145); Total Protein 7.2 g/dL (6.5-8.0)
[2023-07-07 01:33] LABS: COVID-19 Test Negative (Negative); IDNOW Serial# 08D9AD1C; IDNOW Serial# 152EDE1D; Influenza A Negative (Negative); Influenza B2 Negative (Negative)
[2023-07-07 03:17] VITALS: BP 129/72; PULSE 91; RESP 18; O2SAT 95
[2023-07-07 03:42] LABS: Appearance Urine Clear; Color Urine Yellow; Glucose Urine UA Negative (Negative); Leukocyte Esterase Urine Negative (Negative); Nitrite Urine Negative (Negative); Urine Blood Negative (Negative); Urine Ketones Negative (Negative); Urine Protein Negative (Neg-Trace)
--- NOTE | 2023-07-07 03:47 | ED_ITS ---
HPI - Back Pain/Injury General Chief Complaint: Back Pain/Injury Stated Complaint: left side back pain Time Seen by Provider: 07/07/23 02:30 Source: patient Mode of arrival: ambulatory History of Present Illness HPI Narrative: 73-year-old female with chronic back pain but presents after having fallen twice couple of days ago and reports that when she tried to get out of bed with a twisting motion she began experiencing left flank pain that at the time of my interview has complete involved. He denies any recent fevers, chills, nausea, vomiting but states that she suffers from constipation is not had a bowel movement in few days. Patient also reports cold/flu-like symptoms. Related Data Home Medications Medication Instructions Recorded Confirmed albuterol sulfate 90 mcg/actuation 1 puff inhalation QID PRN 04/05/22 11/28/22 aerosol inhaler Shortness Of Breath ergocalciferol (vitamin D2) 1,250 1,250 mcg PO QWEEK 04/05/22 11/28/22 mcg (50,000 unit) capsule (Vitamin D2) fluoxetine 10 mg capsule 10 mg PO DAILY 04/05/22 11/28/22 fluticasone fur. 100 mcg-umeclid 1 ea inhalation DAILY 04/05/22 11/28/22 62.5 mcg-vilant 25 mcg inhalat.powder (Trelegy Ellipta) rosuvastatin 10 mg tablet 10 mg PO BEDTIME 04/05/22 11/28/22 multivitamin 1 tab PO QAM 11/28/22 11/28/22 omeprazole 20 mg capsule,delayed 20 mg PO DAILY 11/28/22 11/28/22 release trazodone 50 mg tablet 50 mg PO BEDTIME 11/28/22 11/28/22 Previous Rx's Medication Instructions Recorded cyclobenzaprine 10 mg tablet 10 mg PO BEDTIME PRN muscle spasm 04/05/22 #14 tabs oxycodone 5 mg tablet 5 mg PO Q8H PRN postoperative 08/18/22 pain 5 days #14 tabs docusate sodium 100 mg capsule 100 mg PO BID #20 caps 12/13/22 (Colace) oxycodone 5 mg tablet 5 mg PO Q6-8H PRN pain #20 tabs 12/13/22 Allergies Allergy/AdvReac Type Severity Reaction Status Date / Time alendronate sodium Allergy Intermediate Chest Pain Verified 07/07/23 00:52 [From Fosamax] Review of Systems 2 Review of Systems: Pertinent positives and negatives as stated in [facility] Past Medical History Source: nursing notes reviewed Medical History Arthritis Urinary tract infection Left shoulder pain Left-sided weakness Hyperlipidemia GERD (gastroesophageal reflux disease) Depression COPD (chronic obstructive pulmonary disease) T12 compression fracture Osteoporosis Cervical spondylosis with myelopathy and radiculopathy Lumbar spondylosis Surgical History History of sleeve gastrectomy Hx of kyphoplasty H/O colonoscopy H/O: section H/O cervical spine surgery Social History Social History Are you a primary intensive care unit registered nurse to a significant other at home: No Do you presently have visiting nurse or other home services: No Alcohol intake: current Alcohol intake frequency: holidays/special occasions only Patient Tobacco Use Status: Former Tobacco user Quit Date: 2007 Tobacco use type: Cigarette Smoked in Last 30 Days: No Use of substances other than those prescribed or required for medical reasons: No Substance Use Type: Caffiene Advance Directives: No Advance Directives Information Provided: Yes Physical Exam 2 Vital Signs: Vital Signs: Last Vital Signs Temp 98.4 F 07/07/23 00:53 Pulse 91 07/07/23 03:17 Resp 18 07/07/23 03:17 BP 129/72 07/07/23 03:17 Pulse Ox 95 07/07/23 03:17 O2 Del Method Room Air 07/07/23 03:17 BMI result Body Mass Index 36.9 VITAL SIGNS: Reviewed. GENERAL: Well developed, well nourished, in no acute distress. HEAD: Normocephalic/atraumatic EYES: PERRLA, EOMI EARS: Ext canals without abnormality NOSE: Nares patent bilateral OROPHARYNX: no oral lesions noted, posterior pharynx clear NECK: Supple, no adenopathy LUNGS: Normal breath sounds. No adventitious sounds or accessory muscle use. SpO2<95> CARDIOVASCULAR: Regular rate and rhythm without noted murmurs ABDOMEN: Soft, non-tender, non-distended with bowel sounds. BACK: No midline vertebral tenderness to palpation or step-offs noted. MUSCULOSKELETAL: No tenderness, deformities, or effusions noted on gross inspection. EXTREMITIES: No cyanosis, clubbing or edema. SKIN: Inspection of the skin reveals no rashes NEUROLOGIC: Alert and oriented x 4. Strength and sensation to light touch were grossly intact x 4. Medical Decision Making Medical Decision Making [facility] Narrative: 73-year-old female with history and clinical presentation of acute on chronic back pain with radiation into the left flank without associated constitutional symptoms, and at present patient's pain has completely resolved after having taken Tylenol. I reviewed all investigations and hematologic indices are negative for leukocytosis/anemia/thrombocytopenia. Chemistries disease are negative for RORY or electrolyte/liver enzyme derangements. Urinalysis is negative for UTI or hematuria. Viral testing is negative for influenza/RSV/COVID-19. My interpretation is that patient was experiencing acute on chronic back pain, have no concerns for intra-abdominal infection/renal colic and there is no evidence to suggest a urinary tract infection. Patient is completely asymptomatic after having taken Tylenol and she is discharged home. Differential Diagnosis Differential Diagnoses: The differential diagnosis associated with the presentation includes Please see the discussion above Admission/Observation Consideration of admission/observation: Escalation of care including admission/observation considered Please see the discussion above Lab Data [facility] Lab Attestation statement: I reviewed the patient's lab results. Please see the discussion above 07/07/23 01:10 07/07/23 01:10 Labs: Lab Results 07/07/23 07/07/23 Range/Units 01:10 03:36 WBC 10.3 (4.8-10.8) X10*3/uL RBC 4.10 L (4.20-5.50) X10*6/uL Hgb 12.7 (12.0-16.0) g/dl Hct 38.1 (37.0-47.0) % MCV 92.9 (80.0-98.0) fL MCH 31.0 (27.0-33.0) pg MCHC 33.3 (31.0-35.0) g/dl RDW 13.4 (11.0-16.0) % Plt Count 203 (160-400) X10*3/uL MPV 9.8 (9.4-12.3) fL Immature Gran % (Auto) 0.3 (0.0-0.4) % Neut % (Auto) 73.6 H (45-73) % Lymph % (Auto) 16.3 L (20-40) % Bartholomew % (Auto) 7.4 (2-11) % Eos % (Auto) 2.2 (0-4) % Baso % (Auto) 0.2 (0-2) % Lymph # (Auto) 1.7 (1.2-4.9) X10*3/uL Bartholomew # (Auto) 0.8 (0.1-1.2) X10*3/uL Eos # (Auto) 0.2 (0.0-0.4) X10*3/uL Baso # (Auto) 0.0 (0.0-0.2) X10*3/uL Abs Immat Gran (auto) 0.03 (0.00-0.03) X10*3/uL Absolute Neuts (auto) 7.6 (2.0-8.3) x10*3/uL Absolute Nucleated RBC 0.000 (0.0-0.012) X10*3/uL Nucleated RBC % (auto) 0.0 (0.0-0.2) /100WBC Sodium 137 (135-145) mmol/L Potassium 4.0 (3.3-5.1) mmol/L Chloride 106 (96-108) mmol/L Carbon Dioxide 22 (22-29) mmol/L Anion Gap 13 (12-20) BUN 12 (9-16) mg/dL Creatinine 0.77 (0.5-1.4) mg/dL Estim Creat Clear Calc 63.8 Estimated GFR > 60 Random Glucose 159 H (60-115) mg/dL Calcium 9.2 (8.4-10.2) mg/dL Total Bilirubin 0.5 (0.0-1.0) mg/dL Direct Bilirubin 0.2 (0.0-0.5) mg/dL AST 19 (5-31) U/L ALT 15 (0-31) U/L Alkaline Phosphatase 75 (39-117) U/L Total Protein 7.2 (6.5-8.0) g/dL Albumin 4.2 (3.5-5.0) g/dL Urine Color Yellow Urine Appearance Clear Urine pH 6.0 (5.0-9.0) Ur Specific Rock 1.020 (1.005-1.025) Urine Protein Negative (Neg-Trace) mg/dL Urine Glucose (UA) Negative (Negative) mg/dL Urine Ketones Negative (Negative) mg/dL Urine Blood Negative (Negative) Urine Nitrite Negative (Negative) Ur Leukocyte Esterase Negative (Negative) COVID-19 (BHARAT) Negative (Negative) COVID-19 Clin Com See Note Influenza Type A (KAYLEE) Negative (Negative) Influenza Type B (KAYLEE) Negative (Negative) Influenza A & B Note See Note External Record Review External record reviewed: Outpatient record and Prior outpatient labs Critical Care Time Critical Care Time Critical Care Time: Yes Total Critical Care Time: 30 Attestation: I personally attest to this time spent taking care of the patient. Discharge Plan Discharge Clinical Impression: Acute exacerbation of chronic low back pain Patient Disposition: Home, Self-Care Instructions: Back Pain (ED) Additional Instructions: 1. Resume all home medications as prescribed. 2. If your back pain can be controlled with Tylenol, would recommend that you continue with this, please follow-up with your primary care doctor in keep all scheduled appointments. Do not hesitate to return to the emergency room for any worsening of your symptoms. Prescriptions: No Action oxycodone 5 mg tablet 5 mg PO Q8H MDD 3 pills PRN (Reason: postoperative pain) 5 Days Qty: 14 0RF Rx Instructions: Partial Fill upon patient request. multivitamin Tablet 1 tab PO QAM trazodone 50 mg tablet 50 mg PO BEDTIME omeprazole 20 mg Capsule,Delayed Release(Dr/Ec) 20 mg PO DAILY docusate sodium [Colace] 100 mg capsule 100 mg PO BID Qty: 20 0RF oxycodone 5 mg tablet 5 mg PO Q6-8H PRN (Reason: pain) Qty: 20 0RF Rx Instructions: Partial Fill upon patient request. rosuvastatin 10 mg tablet 10 mg PO BEDTIME fluoxetine 10 mg capsule 10 mg PO DAILY ergocalciferol (vitamin D2) [Vitamin D2] 1,250 mcg (50,000 unit) capsule 1,250 mcg PO QWEEK Trelegy Ellipta 100-62.5-25 mcg blister with device 1 ea inhalation DAILY albuterol sulfate 90 mcg/actuation HFA aerosol inhaler 1 puff inhalation QID PRN (Reason: Shortness Of Breath) cyclobenzaprine 10 mg tablet 10 mg PO BEDTIME PRN (Reason: muscle spasm) Qty: 14 0RF Referrals: Johan Aldridge III, MD [Primary Care Provider] -
[2023-07-07 03:50] LABS: Bacteria Urine None Seen (None Seen); Hyaline Casts Urine 0-2 /LPF (0-2); RBC Urine 0-2 /HPF (0-2); Squamous Epithelial Cell Urine 0-2 /HPF (0-2); WBC Urine 0-5 /HPF (0-5)
[2023-07-07 04:17] VITALS: BP 129/72; PULSE 91; RESP 16; TEMP 36.9
== END 2023-07-07 04:19 | disposition home or self-care (01) ==
PROVIDERS: Emergency Provider Student in an Organized Health Care Education/Training Program; PCP Internal Medicine
DX: M54.50 Low back pain, unspecified (principal); G89.29 Other chronic pain; Z11.52 Encounter for screening for COVID-19
CPT/HCPCS: 36415; 80048; 80076; 81001; 85025; 87502; 87635; 99283; 99284

== ENCOUNTER 2023-12-15 11:12 | Outpatient (AMB) | payer OTHER, SELFPAY ==
--- NOTE | 2023-12-15 11:25 | A.SPINEOV_ITS ---
Intake Visit Reasons: recurring back pain after surgery Intake Note: Mrs. Mccoy is here today c/o recurring back pain after surgery. Nut Cracker Required: No Allergies alendronate sodium [From Fosamax] Allergy (Intermediate, Verified 07/07/23 00:52) Chest Pain Assessment & Plan Assessment & Plan (1) Cervical disc disorder: Code(s): M50.90 - Cervical disc disorder, unspecified, unspecified cervical region Category: Medical (2) Lumbar degenerative disc disease: Code(s): M51.36 - Other intervertebral disc degeneration, lumbar region Category: Medical Plan Mrs Mccoy is returning to the office today for evaluation. We previously did a right L4-5 decompression on her last year. She was symptomatic preoperatively with pain going down her right leg and had tremendous improvement in symptoms. Unfortunately his symptoms have returned over the last few months her tells me. The patient is very difficult historian and has a hard time remembering simple details about what is going on with her medical issues. Because she started limping and using a cane again and having some falls, he felt he should bring her back in to be re-evaluated. She is also dealing with a an issue that she has had a left-sided diffuse feeling of weakness now for about 3 years. She has a previous history of an anterior cervical fusion non- instrumented at C5-6. That was done 30 years ago or so. Her neurologist who recently retired recommended she come be evaluated just to exclude myelopathy. She did have a cervical MRI done last year showing possible adjacent segment disease at C6-7. Getting anymore history out of her is very difficult. She does have balance issues and has fallen but is not clear she actually has any tingling or numbness. On my examination today, she is able to stand up out of a chair but it is very difficult. She has in a lot of pain and has to use her cane for assistance. On motor exam, she has some mild hand weakness on the left but the rest of her motor examination is full strength. She does have hyperreflexia and Dang's sign bilaterally in her hands. Right patellar reflex is slightly brisk as well. Positive straight leg raise at about 30 degrees. I reviewed the patient's previous MRI from [facility] last March with Dr. Rojas and there is evidence of a solid fusion construct at C5-6, no hardware instrumentation associated with it. There may be some moderate stenosis at C6-7 but the MRI is of poor quality. I do not see any cord signal change. Her brain MRI just showed some scattered nonspecific T2 signal changes. We think the best idea is to just repeat the MRI as it has been now 9 months since it was last done in her symptoms of the left-sided weakness seemed to be getting worse and she has hyperreflexia. Secondly with regard to her lumbar spine, since his symptoms have come back very similar to what they were before surgery, we will get a lumbar MRI with and without gadolinium to evaluate for recurrent stenosis or a herniated disc. Total amount of time spent in this visit was 20 minutes in discussion of symptoms, lumbar and cervical imaging results and subsequent plan of care Seth Rojas MD,PhD [facility] Orders: Orders MR lumbar spine wo/w con Today M51.36 - Other intervertebral disc degeneration, lumbar region MR cervical spine wo con Today M50.90 - Cervical disc disorder, unspecified, unspecified cervical region Coding Level of Care Code Est Pt Level 3 (34174) Diagnoses Cervical disc disorder M50.90 Lumbar degenerative disc disease M51.36
== END 2023-12-15 12:09 | disposition home or self-care (01) ==
PROVIDERS: PCP Internal Medicine; Visit Provider Physician Assistant
DX: M50.90 Cervical disc disorder, unspecified, unspecified cervical region (principal); M51.36 Other intervertebral disc degeneration, lumbar region
CPT/HCPCS: 99213

== ENCOUNTER → 2023-12-15 11:12 | Outpatient (BNVA) | payer OTHER, SELFPAY | PROVIDERS: PCP Internal Medicine; Visit Provider Physician Assistant | DX: M50.90 Cervical disc disorder, unspecified, unspecified cervical region (principal); M51.36 Other intervertebral disc degeneration, lumbar region | CPT/HCPCS: 99212 ==

== ENCOUNTER 2024-01-04 13:43 | Outpatient (AMB) | payer OTHER, SELFPAY ==
--- NOTE | 2024-01-04 14:10 | HO.SPINEOV ---
Intake Visit Reasons: MRI f/u Intake Note: Ms. Mccoy is here today to F/u on her MRI results. Registered Radiologic Technologist Required: No Allergies alendronate sodium [From Fosamax] Allergy (Intermediate, Verified 07/07/23 00:52) Chest Pain Assessment & Plan Assessment & Plan (1) Compression fracture of L1 lumbar vertebra: Code(s): S32.010A - Wedge compression fracture of first lumbar vertebra, initial encounter for closed fracture Category: Medical Plan Mrs Mccoy is here to review her MRIs done at [facility]. Please see my note for the specifics of the last problem in her presentation. She and her report that the day they saw me last, she fell at home and landed right on her buttocks. Since then she has having an escalated amount of back pain. Her follow-up MRI shows no residual spinal cord compression to explain her balance issues. Her cervical fusion site looks excellent and there is no significant adjacent segment disease. Her lumbar MRI however does show that she has an acute L1 compression fracture. I am going to refer her back to who did her previous kyphoplasty at T12 and see if he can get her in for a visit and possible kyphoplasty at that level of the new fracture. From the standpoint of the lumbar decompression that was done by Dr. Rojas, there is no residual compression of the nerves in the lumbar spine. Things otherwise look okay outside of the compression fracture. Total amount of time spent in this visit was 20 minutes in discussion of symptoms, lumbar imaging results and subsequent plan of care Seth Rojas MD,PhD [facility] Coding Level of Care Code Est Pt Level 3 (96228) Diagnoses Compression fracture of L1 lumbar vertebra S32.010A
== END 2024-01-04 15:37 | disposition home or self-care (01) ==
PROVIDERS: PCP Internal Medicine; Visit Provider Physician Assistant
DX: S32.010A Wedge compression fracture of first lumbar vertebra, initial encounter for closed fracture (principal)
CPT/HCPCS: 99213

== ENCOUNTER → 2024-01-04 13:43 | Outpatient (BNVA) | payer OTHER, SELFPAY | PROVIDERS: PCP Internal Medicine; Visit Provider Physician Assistant | DX: S32.010A Wedge compression fracture of first lumbar vertebra, initial encounter for closed fracture (principal); W01.0XXA Fall on same level from slipping, tripping and stumbling without subsequent striking against object, initial encounter; Y93.9 Activity, unspecified; Y92.009 Unspecified place in unspecified non-institutional (private) residence as the place of occurrence of the external cause; Y99.9 Unspecified external cause status | CPT/HCPCS: 99212 ==

== ENCOUNTER 2024-01-10 13:56 | Outpatient (AMB) | payer OTHER, SELFPAY ==
--- NOTE | 2024-01-10 13:58 | A.OFFVIS_ITS ---
Vital Signs 01/10/24 14:13 Height 5 ft 0.5 in Weight 195 lb BMI 37.5 BP 132/68 Blood Pressure Location Lt radial Position Sitting Respiration 14 Pulse 91 Pulse Source Pulse Oximeter Pulse Oximetry (%) 97 Oxygen Delivery Method Room Air Intake Visit Reasons: FOLLOW UP AFTER APPT WITH DR GIFFORD Intake Note: Patient comes in for follow up. She was accompanied by spouse Levi. Reports pain 11/24. Allergies alendronate sodium [From Fosamax] Allergy (Intermediate, Verified 01/10/24 14:14) Chest Pain HPI Comments Details: Kathya is very pleasant 73 years old female who presents today in my office on referral from neurosurgical physician orthopedic physician assistant. In the past she received kyphoplasty from me at T12 compression fracture. She recently fell on her buttocks and after that she went for MRI which demonstrated L1 compression fracture. Last time I was seeing her for diagnosis of VCF I recommended her to consider treatment for osteoporosis with primary care physician or safety trainer. Her primary care physician started her on alendronate the patient reported unpleasant and intolerable side effects. Unfortunately instead of switching medication her primary care physician just stopped the alendronate. Now the patient is suffering from yet another compression fracture of L1 this time. She reports severe pain in the projection of the upper lumbar spine. She reports difficulty breathing, she reports difficulty taking slow deep breath her pain is being exacerbated when she tries to do that. I will schedule this patient for kyphoplasty as soon as possible. She still has edema at L1 vertebra so we need to provide the service expeditiously. PRIOR: Patient is a pleasant 72 years old female with a history of T12 compression fracture, prior neck surgery and osteoporosis, presents today with worsening chronic low back pain for the past 8 months. She is accompanied by her . Patient reports left foot drop with walking, left sided weakness and frequent balance issues with walking. Patient uses a cane with ambulation. She reports a fall 2 weeks ago when she was getting out of her car and her left leg gave out. Patient shows healing abrasions on her right elbow and left palm due to recent fall. Reports previous cervical spine surgery, anterior approach. She has seen her neurologist Dr. Downing yesterday and he ordered the patient to undergo cervical MRI with and without IV contrast at [facility]. Her back is axial, spreads across her lower back without radiation to her lower extremities. She reports tenderness in the projections of both GTB. Patient reports limited cervical spine ROM, with numbness and tingling in her left fingers 3-5th digits with mild decrease in strength compared to her right hand. Pain is described as intermittent dull, sore, hurting, aching, heavy, punishing and killing. Pain interferes with her daily activities, sleep, mood, social interactions and quality of life. Denies any fever, abdominal or groin pain, bladder or bowel incontinence or saddle anesthesia. She also reports left shoulder pain that has been relieved with recent cortisone injection by her orthopedic provider. Patient reports bilateral foot pain and pain in her big toes. She has completed physical therapy and home exercise program in the past with temporary and minimal symptoms improvement. Currently she takes Tylenol with partial pain relief. She rates her pain at 5/10. [facility] Medical History Arthritis Urinary tract infection Left shoulder pain Left-sided weakness Hyperlipidemia GERD (gastroesophageal reflux disease) Depression COPD (chronic obstructive pulmonary disease) T12 compression fracture Osteoporosis Cervical spondylosis with myelopathy and radiculopathy Lumbar spondylosis Surgical History History of sleeve gastrectomy Hx of kyphoplasty H/O colonoscopy H/O: section H/O cervical spine surgery Social History Are you a primary wound care physician to a significant other at home: No Do you presently have visiting nurse or other home services: No Alcohol intake: current Alcohol intake frequency: holidays/special occasions only Patient Tobacco Use Status: Former Tobacco user Tobacco use type: Cigarette Substance Use Type: Caffiene Review of Systems Const All systems reviewed & are unremarkable except as noted in HPI and below ENT Reports Normal hearing present Neuro Reports Normal hearing present, Denies confusion and Denies Sensory deficit (Neuro) Psych Denies confusion Physical Exam Vital Signs: Last Vital Signs Pulse 91 01/10/24 14:13 Resp 14 01/10/24 14:13 BP 132/68 01/10/24 14:13 Pulse Ox 97 01/10/24 14:13 Oxygen Delivery Method Room Air 01/10/24 14:13 BMI result Body Mass Index 37.5 Const General: cooperative, no acute distress, alert, awake and well groomed; No confusion Nutritional Appearance: average body habitus Orientation/consciousness: patient oriented x3 and No confusion Limitations: no limitations HEENT Head: Yes normal to inspection, Yes normocephalic, Yes atraumatic and No occipital foramen tenderness Ears: hearing grossly normal bilaterally Face and sinus: Yes normal facial exam and Yes face symmetric Mouth: moist mucous membranes Eyes General: appearance normal, both eyes and all related structures Visual Morrell: normal visual morrell by confrontation Pupils: Equal, round and reactive pupils present EOM: EOMs intact bilaterally Neck Other: Slightly decreased cervical ROM in all planes. Denies pain with cervical extension and flexion. Spurling compression test equivocal. Pain is unchanged by Spurling maneuver with retraction. Elvey's tension test positive on the left, with radiation of pain from neck to wrist. Lhermitte's test was negative. Diminished DTRs on the left, +2 on the right. Patient demonstrated 5/5 right and 4/5 left motor strength of bilateral upper extremities. 2 + radial pulses. Significant tightness throughout left upper trapezius as well as TTP throughout bilateral upper trapezius muscles. No paravertebral tenderness over facet joints bilaterally. Neck: Yes normal visual inspection, Yes no lymphadenopathy, Yes no meningeal signs, Yes supple, No anterior neck swelling and Yes no JVD Resp Effort & Inspection: normal respiratory effort, able to speak in complete sentences, no audible wheezes, no cough and symmetric chest movement Cardio Jugular venous distension: no JVD Bruits: no carotid bruits Peripheral pulses: radial pulses present, posterior tibial pulses present and dorsalis pedis present GI Inspection: Yes normal to inspection, No Abdominal wall edema and Yes obesity Palpation (GI): Soft to palpation and nontender General: Yes no CVA tenderness Back/Spine/Pelvis Other: Patient is able to walk and stand on heels and tip toes with mild difficulty on the left. Antalgic gait with limping on the right. Can flex forward to 70-75 d egrees and extend to 5-10 degrees before experiencing lumbar pain. Demonstrates 5/5 strength of quadriceps bilaterally as well as flexion/dorsiflexion of bilateral feet against resistance. 2+ pedal pulses bilaterally. Straight leg rise with dorsiflexion negative bilaterally. Diminished patellar and achilles reflexes bilaterally. Facet loading test positive bilaterally. Severe tenderness on palpation in the projection of the upper lumbar spine. Tenderness on percussion in the projection of the upper lumbar spine. Back: no CVA tenderness Cervical Spine: normal cervical lordosis, loss of normal cervical lordosis, cervical muscular tenderness, No pain with cervical ROM, Cervical spine scars present (anterior), No Cervical spine tenderness and No step off deformity Thoracic/Lumbar Spine: thoracic and lumbar spine normal to inspection, No Thoracic/lumbar spine scar(s), Lasegue's sign negative, straight leg raise negative bilaterally, pain with thoraco-lumbar ROM, paraspinal muscle tenderness on the left greater than right, thoraco-lumbar ROM limited, No thoracic spinal tenderness and lumbar spinal tenderness (L4-S1) Pelvis: buttock tenderness on the left Sacroiliac joints: bilaterally tender to palpation Skin General skin exam: no rashes or lesions noted Trauma: abrasion (healing abrasions right elbow and left palm r/t recent fall) Neuro General: patient oriented x3, tone normal, moves all extremities, no meningeal signs, CN's II-XI intact bilaterally and No confusion Cranial nerves: Yes Equal, round and reactive pupils present, Yes Bilaterally intact EOM present and Yes Normal hearing present Cognition (Neuro): normal cognition Gait exam (Neuro): Antalgic gait present, Shuffling gait present (on the left) and No Assistive device used Motor exam (neuro): 5/5 motor strength present throughout, no tremor noted, Normal motor muscle tone present throughout and Motor abnormalities not present Sensory Exam: No Sensory deficit (Neuro) Coordination: Romberg test positive Extrem General: Yes capillary refill normal, Yes no clubbing, cyanosis or edema and Yes no calf tenderness Psych Appearance: grossly normal and well kempt Mental Status: mental status grossly normal Speech and movement: Normal speech and movement present and Clear speech present Affect: normal affect Attitude: cooperative Thought process: Normal thought process present Thought content: Normal thought content present Insight: Good insight present (Psych) Judgement: Good judgement present (Psych) Results Reviewed Results Reviewed: On the MRI report from [place] there is demonstrable L1 compression fracture with prominent edema without retropulsion. The compression fracture at T12 with evidence of kyphoplasty is stable. Assessment & Plan Assessment & Plan (1) Right hip pain: Code(s): M25.551 - Pain in right hip Category: Medical (2) Sacroiliac joint dysfunction of right side: Code(s): M53.3 - Sacrococcygeal disorders, not elsewhere classified Category: Medical (3) Lumbar degenerative disc disease: Code(s): M51.36 - Other intervertebral disc degeneration, lumbar region Category: Medical (4) Discogenic lumbar pain: Code(s): M54.59 - Other low back pain Category: Medical (5) Lumbar spondylosis: Code(s): M47.816 - Spondylosis without myelopathy or radiculopathy, lumbar region Category: Medical (6) Osteoporosis: Code(s): M81.0 - Age-related osteoporosis without current pathological fracture Category: Medical (7) Compression fracture of L1 lumbar vertebra: Code(s): S32.010A - Wedge compression fracture of first lumbar vertebra, initial encounter for closed fracture Category: Medical Plan I will schedule this patient for L1 kyphoplasty soon as possible. She presents with difficulty of taking deep breath and it can compromise her pulmonary function and eventually lead to developing pneumonia and other problems. I also recommended her to ask primary care physician to refer her to a good safety trainer who could handle problems with osteoporosis. Currently her compression fracture is posttraumatic however osteoporosis definitely place major all in the development of the condition. Patient Instructions: I here by testify that I spent 35 minutes in conversation with this patient as well as evaluating her prior records and diagnostic studies as well as planning her care and organizing this note. Coding Level of Care Code Est Pt Level 4 (95174) Diagnoses Right hip pain M25.551 Sacroiliac joint dysfunction of right side M53.3 Lumbar degenerative disc disease M51.36 Discogenic lumbar pain M54.59 Lumbar spondylosis M47.816 Osteoporosis M81.0 Compression fracture of L1 lumbar vertebra S32.010A
[2024-01-10 14:13] VITALS: BP 132/68; PULSE 91; RESP 14; O2SAT 97; BMI 37.5
== END 2024-01-10 14:28 | disposition home or self-care (01) ==
PROVIDERS: PCP Internal Medicine; Visit Provider Anesthesiology
DX: M25.551 Pain in right hip (principal); M53.3 Sacrococcygeal disorders, not elsewhere classified; M51.36 Other intervertebral disc degeneration, lumbar region; M54.59 Other low back pain; M47.816 Spondylosis without myelopathy or radiculopathy, lumbar region; M81.0 Age-related osteoporosis without current pathological fracture; S32.010A Wedge compression fracture of first lumbar vertebra, initial encounter for closed fracture
CPT/HCPCS: 99214

== ENCOUNTER → 2024-01-10 13:56 | Outpatient (BNVA) | payer OTHER, SELFPAY | PROVIDERS: PCP Internal Medicine; Visit Provider Anesthesiology | DX: S32.010A Wedge compression fracture of first lumbar vertebra, initial encounter for closed fracture (principal); X58.XXXA Exposure to other specified factors, initial encounter; Y93.9 Activity, unspecified; Y92.9 Unspecified place or not applicable; Y99.9 Unspecified external cause status; M81.0 Age-related osteoporosis without current pathological fracture; M47.816 Spondylosis without myelopathy or radiculopathy, lumbar region; M54.59 Other low back pain; M51.36 Other intervertebral disc degeneration, lumbar region; M53.3 Sacrococcygeal disorders, not elsewhere classified; M25.551 Pain in right hip | CPT/HCPCS: 99212 ==

== ENCOUNTER 2024-01-15 12:04 | Day surgery (SDC) | payer OTHER, SELFPAY ==
--- NOTE | 2024-01-11 14:25 | HO.ANESPROP2 ---
Documented by User: Christi Vanessa NP 01/11/24 14:28 HPI - Anesthesia Eval Consult details Narrative: 73yo F for L1 Kyphoplasty s/p microdiscectomy 11/2022 with GA-ETT 7 PMFSH Active Problems Active Problems: All Active Problems Compression fracture of L1 lumbar vertebra (Acute) Cervical disc disorder (Acute) Status post lumbar spine surgery for decompression of spinal cord (Acute) Lumbar degenerative disc disease (Acute) Greater trochanteric bursitis of both hips (Acute) Discogenic lumbar pain (Acute) Right hip pain (Acute) Sacroiliac joint dysfunction of right side (Acute) Status post kyphoplasty (Acute) Lumbar back pain with radiculopathy affecting left lower extremity (Acute) Lumbar stenosis with neurogenic claudication (Acute) Lumbar spondylosis (Acute) Cervical spondylosis with myelopathy and radiculopathy (Acute) T12 compression fracture (Acute) Osteoporosis (Acute) Past Medical History Medical History Arthritis Urinary tract infection Left shoulder pain Left-sided weakness Hyperlipidemia GERD (gastroesophageal reflux disease) Depression COPD (chronic obstructive pulmonary disease) T12 compression fracture Osteoporosis Cervical spondylosis with myelopathy and radiculopathy Lumbar spondylosis Family History Family history of problems with anesthesia: No Surgical History Surgical History History of sleeve gastrectomy Hx of kyphoplasty H/O colonoscopy H/O: section H/O cervical spine surgery History of Problems with Anesthesia: No Social History Social History Are you a primary health careers instructor to a significant other at home: No Do you presently have visiting nurse or other home services: No Alcohol intake: current Alcohol intake frequency: holidays/special occasions only Patient Tobacco Use Status: Former Tobacco user Tobacco use type: Cigarette Substance Use Type: Caffiene Have you been hit, kicked, punched, or otherwise hurt by someone within the past year? If so, by whom?: No Are you DNR?: No Advance Directives: No Advance Directives Information Provided: Yes Recently lost weight without trying: No Nutrition Risks: No Nutritional Risk Meds Allergies Allergy/AdvReac Type Severity Reaction Status Date / Time alendronate sodium Allergy Intermediate Chest Pain Verified 01/15/24 12:54 [facility] Home Medications ?Medication ?Instructions ?Recorded ?Confirmed ?Last Taken ?Type albuterol sulfate 90 mcg/actuation 1 puff inhalation QID PRN 04/05/22 01/15/24 01/15/24 History aerosol inhaler Shortness Of Breath ergocalciferol (vitamin D2) 1,250 1,250 mcg PO QWEEK 04/05/22 01/15/24 08/18/22 History mcg (50,000 unit) capsule (Vitamin D2) fluoxetine 10 mg capsule 10 mg PO DAILY 04/05/22 01/15/24 08/18/22 History fluticasone fur. 100 mcg-umeclid 1 ea inhalation DAILY 04/05/22 01/15/24 08/18/22 History 62.5 mcg-vilant 25 mcg inhalat.powder (Trelegy Ellipta) rosuvastatin 10 mg tablet 10 mg PO BEDTIME 04/05/22 01/15/24 01/15/24 History multivitamin 1 tab PO QAM 11/28/22 01/15/24 Unknown History omeprazole 20 mg capsule,delayed 20 mg PO DAILY 11/28/22 01/15/24 01/15/24 History release trazodone 50 mg tablet 50 mg PO BEDTIME 11/28/22 01/15/24 Unknown History lactulose 10 gram/15 mL oral PO 01/10/24 Unknown History solution (Enulose) sennosides 8.6 mg tablet (senna) 17.2 mg PO DAILY PRN constipation 01/10/24 01/15/24 Unknown History trospium 20 mg tablet 20 mg PO BID 01/10/24 01/15/24 Unknown History Exam Pertinent Lab Results Pertinent Lab Results: Laboratory Tests 07/07/23 01:10 WBC 10.3 Hgb 12.7 Hct 38.1 Plt Count 203 Sodium 137 Potassium 4.0 Chloride 106 Carbon Dioxide 22 BUN 12 Creatinine 0.77 Assessment and Plan Assessment Anesthesia Assessment: Chart Reviewed Final Anesthetic Review Family History of Problems with Anesthesia: No History of Problems with Anesthesia: No Documented by User: Patricia Tripp MD 01/15/24 13:23 [facility] Past Medical History Medical History Arthritis Urinary tract infection Left shoulder pain Left-sided weakness Hyperlipidemia GERD (gastroesophageal reflux disease) Depression COPD (chronic obstructive pulmonary disease) T12 compression fracture Osteoporosis Cervical spondylosis with myelopathy and radiculopathy Lumbar spondylosis Surgical History Surgical History History of sleeve gastrectomy Hx of kyphoplasty H/O colonoscopy H/O: section H/O cervical spine surgery Social History Social History Are you a primary health careers instructor to a significant other at home: No Do you presently have visiting nurse or other home services: No Alcohol intake: current Alcohol intake frequency: holidays/special occasions only Patient Tobacco Use Status: Former Tobacco user Tobacco use type: Cigarette Substance Use Type: Caffiene Have you been hit, kicked, punched, or otherwise hurt by someone within the past year? If so, by whom?: No Are you DNR?: No Advance Directives: No Advance Directives Information Provided: Yes Recently lost weight without trying: No Nutrition Risks: No Nutritional Risk Meds Allergies Allergy/AdvReac Type Severity Reaction Status Date / Time alendronate sodium Allergy Intermediate Chest Pain Verified 01/15/24 12:54 [From Fosamax] Home Medications ?Medication ?Instructions ?Recorded ?Confirmed ?Last Taken ?Type albuterol sulfate 90 mcg/actuation 1 puff inhalation QID PRN 04/05/22 01/15/24 01/15/24 History aerosol inhaler Shortness Of Breath ergocalciferol (vitamin D2) 1,250 1,250 mcg PO QWEEK 04/05/22 01/15/24 08/18/22 History mcg (50,000 unit) capsule (Vitamin D2) fluoxetine 10 mg capsule 10 mg PO DAILY 04/05/22 01/15/24 08/18/22 History fluticasone fur. 100 mcg-umeclid 1 ea inhalation DAILY 04/05/22 01/15/24 08/18/22 History 62.5 mcg-vilant 25 mcg inhalat.powder (Trelegy Ellipta) rosuvastatin 10 mg tablet 10 mg PO BEDTIME 04/05/22 01/15/24 01/15/24 History multivitamin 1 tab PO QAM 11/28/22 01/15/24 Unknown History omeprazole 20 mg capsule,delayed 20 mg PO DAILY 11/28/22 01/15/24 01/15/24 History release trazodone 50 mg tablet 50 mg PO BEDTIME 11/28/22 01/15/24 Unknown History lactulose 10 gram/15 mL oral PO 01/10/24 Unknown History solution (Enulose) sennosides 8.6 mg tablet (senna) 17.2 mg PO DAILY PRN constipation 01/10/24 01/15/24 Unknown History trospium 20 mg tablet 20 mg PO BID 01/10/24 01/15/24 Unknown History Exam Airway Mallampati Class: II (missing a couple, one implant top right) TM Dist: >3cm Neck ROM: Full Heart: rrr Lungs: cta Assessment and Plan Assessment Anesthesia Assessment: Anesthesia Plan Discussed Final Anesthetic Review NPO: Yes ASA Class: III Final Preanesthetic Review: No Changes in Pt Med Stat, Meds/Allgs Chart Reviewed and Consent Obtained/Reviewed Patient Risk: Low Procedure Risk: Low Anesthetic Plan Anesthetic Plan: MAC: Disposition: Standard PACU
[2024-01-15] VITALS (11 sets, daily range): BP systolic 122–158; BP diastolic 70–94; PULSE 96–107; RESP 16–18; TEMP 36.6–37.4; O2SAT 90–99; BMI 33.7
--- NOTE | ~2024-01-15 | FL_ITS ---
CLINICAL INDICATION: Back pain. FINDINGS: Technical assistance and equipment were provided by the Department of Radiology during intraoperative fluoroscopy for kyphoplasty or vertebroplasty. 4, limited fluoroscopic spot images are submitted. A radiologist was not present during the procedure. Images demonstrate the placement of bilateral transpedicular trochars at L1, with kyphoplasty or vertebroplasty cement at this level. In addition, there is a wedge compression deformity with kyphoplasty or vertebroplasty cement at T12. The images are available for review on PACS. TOTAL FLUOROSCOPY TIME: 0.9 minutes. DOSE AREA PRODUCT: 8.9 Gy-cm2 (gooden-centimeter squared) FL/FL guidance in OR IMPRESSION: Technical assistance and equipment provided by the Department of Radiology during intraoperative fluoroscopy, as above. Please see operative report for further details. Electronically signed by: Joshua Robles MD 01/15/2024 04:42 PM EDT
[2024-01-15] MEDS: Lactated Ringers 1,000 ML 100 ML IVCONT (13:05)
--- NOTE | 2024-01-15 13:56 | P.HPSUR_ITS ---
Pre-Procedural Eval Section A - 24 Hr Update-Section A only Date of Service: 01/15/24 The patient is an INPATIENT: No Changes since office visit: Yes Patient answered all questions The patient has been examined within 24 hours of the surgical procedure. The History & Physical has been completed within 30 days and I have reviewed it.: No Section B - Complete if H&P > 30 days Chief Complaint: Wedge compression fracture of first lumbar Details of Present Illness: as above Relevant Family History (Specify if Yes): No Relevant Social History: Other (specify) Present Medications: None Medical History: No relevant PMH History of Previous Operations: No relevant previous surgery Allergies: Allergies Allergy/AdvReac Type Severity Reaction Status Date / Time alendronate sodium Allergy Intermediate Chest Pain Verified 01/15/24 12:54 [From Fosamax] Review of Systems Sugical H&P ROS: Negative: Constitution, Cardiovascular, Respiratory, Neurological, Psychiatric, Hem-Onc, Allergic/Immunologic, Gastrointestinal, Genitourinary, Integumentary and Eyes/Ears/Nose/Throat and Yes, Specify: Musculoskeletal (spinal stenosis, osteoporosis, VCF) and Endocrine (osteo porosis) Exam Surgical H&P Exam: Normal: HEENT, Normal: Heart, Normal: Lungs, Normal: Extremities, Normal: Abdomen, Normal: Skin and Normal: Neurological Plan Diagnosis/Plan: Unchanged I have reviewed the history and physical and performed a pertinent physical examination on my patient. No changes have occurred unless specified. Time Spent With Patient Time: Total time managing care of this patient today ____ minutes.
--- NOTE | 2024-01-15 15:25 | PM.OP ---
Brief Operative Note Date of Service: 01/15/24 Pre-op diagnosis: vertebral compression fracture L1 Post-op diagnosis: same Procedure: Kyphoplasty L1 Implants: cement polymethylmetacrilate. Surgeon: Pancho Olsen MD Anesthesia: GETA Was an Second Facing Baster used for this Procedure?: No Estimated blood loss (mL): 13 Pathology: none sent Condition: stable Disposition: PACU
--- NOTE | 2024-01-15 15:27 | W.PM.OPN ---
Operative Note Operative Note Date of Service: 01/15/24 Narrative: L1 baloon kyphoplasty. The patient was brought to the operating room positioned prone on the operating table. ASA monitors were applied and patient was moderately to deeply sedated. The back was prepped With ChloraPrep twice and draped with laparoscopic drape. The image intensifier (C-arm) was brought into position and the L1 pedicles were identified and marked with a skin marker. A retropedicular approach to the vertebral body was appropriate. attention was attracted to the right side 1st. The diagonal line from the inferior contralateral corner to the superior ipsilateral right corner was made. One width of the vertebra was measured on the diagonal line extended further lateral to the right and this point was chosen as the entrance point. Local anesthetic was injected into the area, 11 blade was used to make a ari in the skin. After that osteo introducer with beveled stylets in it was advanced behind L1 pedicle the right. The osteo introducer was continued to advance to the junction of the pedicle and vertebral body on the right side, care was taken not to cross over medial border of the pedicle until the troacar tip appeared in the posterior vertebral body on the lateral view. small mallet was used to drive the osteo introducer into the vertebral body. Positioning was confirmed on the AP and lateral plane. lateral image was taken to ensure that the cannula was positioned approximately 1cm past the vertebral body wall. Through the cannula, a drill was advanced into the vertebral body under fluoroscopic guidance toward the anterior cortex, creating a channel. After that curetting device was inserted through the introducer and grating was performed into medial and cephalad direction. The hollow dull stylet was inserted into the right sided introducer. After that procedure was repeated in the mirroring fashion from the left side.. After completing the entry into the vertebral body, a 15 mm inflatable Balloon was inserted through the cannula and advanced under fluoroscopic guidance into the vertebral body near the center of the vertebral body. The radiopaque marker bands on the balloon were identified using AP and lateral images. the balloon was inflated on the right side 1st and after that on the left side. The pressure off of inflation did not exceed 260 psi. After that sterilely prepared methyl methacrylate cement was used to feel of the cavities under direct view with the contrast observing feel of the cavities. Total dose of the cement was 5.5 mls. Upon completion of the cavities feel the syringes introducing the cement into the vertebral body the stilets were reinserted and the osteointroducers were removed after rotation several times on their axis. 0 silk suture were used to close 2 incisions Sterile dressing with bacitracin was applied.
== END 2024-01-15 17:29 | disposition home or self-care (01) ==
PROVIDERS: PCP Internal Medicine; Visit Provider Anesthesiology
PROC: (CPT 22514; principal; 2024-01-15 14:00)
DX: S32.010A Wedge compression fracture of first lumbar vertebra, initial encounter for closed fracture (principal); W01.0XXA Fall on same level from slipping, tripping and stumbling without subsequent striking against object, initial encounter; Y93.89 Activity, other specified; Y92.9 Unspecified place or not applicable; Y99.9 Unspecified external cause status; M47.816 Spondylosis without myelopathy or radiculopathy, lumbar region; M51.36 Other intervertebral disc degeneration, lumbar region; M53.3 Sacrococcygeal disorders, not elsewhere classified; M81.0 Age-related osteoporosis without current pathological fracture; M25.551 Pain in right hip; J44.9 Chronic obstructive pulmonary disease, unspecified; Z79.51 Long term (current) use of inhaled steroids; Z79.899 Other long term (current) drug therapy; Z88.8 Allergy status to other drugs, medicaments and biological substances; Z98.890 Other specified postprocedural states; Z98.1 Arthrodesis status; Z98.84 Bariatric surgery status; Z87.891 Personal history of nicotine dependence
CPT/HCPCS: 22514; C1713; J0690; J2250; J2371; J2704; J2795; J3010; Q9967

== ENCOUNTER → 2024-01-15 12:04 | Outpatient (BNV) | payer OTHER, SELFPAY | PROVIDERS: PCP Internal Medicine; Visit Provider Anesthesiology | DX: S32.010A Wedge compression fracture of first lumbar vertebra, initial encounter for closed fracture (principal) | CPT/HCPCS: 22514 ==

== ENCOUNTER 2024-01-22 13:20 | Outpatient (AMB) | payer OTHER, SELFPAY ==
--- NOTE | 2024-01-22 13:21 | A.OFFVIS_ITS ---
Vital Signs 01/22/24 13:29 Height 5 ft 2 in Weight 184 lb BMI 33.7 BP 135/70 Blood Pressure Location Rt radial Position Sitting Respiration 14 Pulse 94 Pulse Source Pulse Oximeter Pulse Oximetry (%) 94 Oxygen Delivery Method Room Air Intake Visit Reasons: S/p L1 Kyphoplasty 01/15/24 Intake Note: Patient comes in for post-op. Reports pain 0/10. Allergies alendronate sodium [From Fosamax] Allergy (Intermediate, Verified 01/22/24 13:28) Chest Pain HPI Comments Details: Kathya is back in my office after L1 kyphoplasty. She reports absence of pain today. She reports better mobility better activities of daily living better social interactions. I recommended her to request her primary care physician who is part of the [facility] to refer her to a good debt recovery officer who can manage her osteoporosis. Unfortunately she developed side effects on alendronate she developed chest pain. However she can be started on some newer medications to treat her osteoporosis. The wound was examined today it is completely healed , the wounds were worst with ChloraPrep and the sutures were severed sterile dressings Tegaderm were applied. Next appointment is as needed. Prior: In the past she received kyphoplasty from me at T12 compression fracture. She recently fell on her buttocks and after that she went for MRI which demonstrated L1 compression fracture. Last time I was seeing her for diagnosis of VCF I recommended her to consider treatment for osteoporosis with primary care physician or debt recovery officer. Her primary care physician started her on alendronate the patient reported unpleasant and intolerable side effects. Unf ortunately instead of switching medication her primary care physician just stopped the alendronate. Now the patient is suffering from yet another compression fracture of L1 this time. She reports severe pain in the projection of the upper lumbar spine. She reports difficulty breathing, she reports difficulty taking slow deep breath her pain is being exacerbated when she tries to do that. I will schedule this patient for kyphoplasty as soon as possible. She still has edema at L1 vertebra so we need to provide the service expeditiously. PRIOR: Patient is a pleasant 72 years old female with a history of T12 compression fracture, prior neck surgery and osteoporosis, presents today with worsening chronic low back pain for the past 8 months. She is accompanied by her . Patient reports left foot drop with walking, left sided weakness and frequent balance issues with walking. Patient uses a cane with ambulation. She reports a fall 2 weeks ago when she was getting out of her car and her left leg gave out. Patient shows healing abrasions on her right elbow and left palm due to recent fall. Reports previous cervical spine surgery, anterior approach. She has seen her neurologist Dr. Downing yesterday and he ordered the patient to undergo cervical MRI with and without IV contrast at [facility] [place] [facility] [place]. Her back is axial, spreads across her lower back without radiation to her lower extremities. She reports tenderness in the projections of both GTB. Patient reports limited cervical spine ROM, with numbness and tingling in her left fingers 3-5th digits with mild decrease in strength compared to her right hand. Pain is described as intermittent dull, sore, hurting, aching, heavy, punishing and killing. Pain interferes with her daily activities, sleep, mood, social interactions and quality of life. Denies any fever, abdominal or groin pain, bladder or bowel incontinence or saddle anesthesia. She also reports left shoulder pain that has been relieved with recent cortisone injection by her orthopedic provider. Patient reports bilateral foot pain and pain in her big toes. She has completed physical therapy and home exercise program in the past with temporary and minimal symptoms improvement. Currently she takes Tylenol with partial pain relief. She rates her pain at 5/10. [facility] Medical History Arthritis Urinary tract infection Left shoulder pain Left-sided weakness Hyperlipidemia GERD (gastroesophageal reflux disease) Depression COPD (chronic obstructive pulmonary disease) T12 compression fracture Osteoporosis Cervical spondylosis with myelopathy and radiculopathy Lumbar spondylosis Surgical History History of sleeve gastrectomy Hx of kyphoplasty H/O colonoscopy H/O: section H/O cervical spine surgery Social History Are you a primary pet care attendant to a significant other at home: No Do you presently have visiting nurse or other home services: No Alcohol intake: current Alcohol intake frequency: holidays/special occasions only Patient Tobacco Use Status: Former Tobacco user Tobacco use type: Cigarette Substance Use Type: Caffiene Review of Systems Const All systems reviewed & are unremarkable except as noted in HPI and below ENT Reports Normal hearing present Neuro Reports Normal hearing present, Denies confusion and Denies Sensory deficit (Neuro) Psych Denies confusion Physical Exam Vital Signs: Last Vital Signs Pulse 94 01/22/24 13:29 Resp 14 01/22/24 13:29 BP 135/70 01/22/24 13:29 Pulse Ox 94 01/22/24 13:29 Oxygen Delivery Method Room Air 01/22/24 13:29 BMI result Body Mass Index 33.7 Const General: cooperative, no acute distress, alert, awake and well groomed; No confusion Nutritional Appearance: average body habitus Orientation/consciousness: patient oriented x3 and No confusion Limitations: no limitations HEENT Head: Yes normal to inspection, Yes normocephalic, Yes atraumatic and No occipital foramen tenderness Ears: hearing grossly normal bilaterally Face and sinus: Yes normal facial exam and Yes face symmetric Mouth: moist mucous membranes Eyes General: appearance normal, both eyes and all related structures Visual Ruiz: normal visual ruiz by confrontation Pupils: Equal, round and reactive pupils present EOM: EOMs intact bilaterally Neck Other: Slightly decreased cervical ROM in all planes. Denies pain with cervical extension and flexion. Spurling compression test equivocal. Pain is unchanged by Spurling maneuver with retraction. Elvey's tension test positive on the left, with radiation of pain from neck to wrist. Lhermitte's test was negative. Diminished DTRs on the left, +2 on the right. Patient demonstrated 5/5 right and 4/5 left motor strength of bilateral upper extremities. 2 + radial pulses. Significant tightness throughout left upper trapezius as well as TTP throughout bilateral upper trapezius muscles. No paravertebral tenderness over facet joints bilaterally. Neck: Yes normal visual inspection, Yes no lymphadenopathy, Yes no meningeal signs, Yes supple, No anterior neck swelling and Yes no JVD Resp Effort & Inspection: normal respiratory effort, able to speak in complete sentences, no audible wheezes, no cough and symmetric chest movement Cardio Jugular venous distension: no JVD Bruits: no carotid bruits Peripheral pulses: radial pulses present, posterior tibial pulses present and dorsalis pedis present GI Inspection: Yes normal to inspection, No Abdominal wall edema and Yes obesity Palpation (GI): Soft to palpation and nontender General: Yes no CVA tenderness Back/Spine/Pelvis Other: Patient is able to walk and stand on heels and tip toes with mild difficulty on the left. Antalgic gait with limping on the right. Can flex forward to 70-75 degrees and extend to 5-10 degrees before experiencing lumbar pain. Demonstrates 5/5 strength of quadriceps bilaterally as well as flexion/dorsiflexion of bilateral feet against resistance. 2+ pedal pulses bilaterally. Straight leg rise with dorsiflexion negative bilaterally. Diminished patellar and achilles reflexes bilaterally. Facet loading test positive bilaterally. Severe tenderness on palpation in the projection of the upper lumbar spine. Tenderness on percussion in the projection of the upper lumbar spine. Back: no CVA tenderness Cervical Spine: normal cervical lordosis, loss of normal cervical lordosis, cervical muscular tenderness, No pain with cervical ROM, Cervical spine scars present (anterior), No Cervical spine tenderness and No step off deformity Thoracic/Lumbar Spine: thoracic and lumbar spine normal to inspection, No Thoracic/lumbar spine scar(s), Lasegue's sign negative, straight leg raise negative bilaterally, pain with thoraco-lumbar ROM, paraspinal muscle tenderness on the left greater than right, thoraco-lumbar ROM limited, No thoracic spinal tenderness and lumbar spinal tenderness (L4-S1) Pelvis: buttock tenderness on the left Sacroiliac joints: bilaterally tender to palpation Skin General skin exam: no rashes or lesions noted Trauma: abrasion (healing abrasions right elbow and left palm r/t recent fall) Neuro General: patient oriented x3, tone normal, moves all extremities, no meningeal signs, CN's II-XI intact bilaterally and No confusion Cranial nerves: Yes Equal, round and reactive pupils present, Yes Bilaterally intact EOM present and Yes Normal hearing present Cognition (Neuro): normal cognition Gait exam (Neuro): Antalgic gait present, Shuffling gait present (on the left) and No Assistive device used Motor exam (neuro): 5/5 motor strength present throughout, no tremor noted, Normal motor muscle tone present throughout and Motor abnormalities not present Sensory Exam: No Sensory deficit (Neuro) Coordination: Romberg test positive Extrem General: Yes capillary refill normal, Yes no clubbing, cyanosis or edema and Yes no calf tenderness Psych Appearance: grossly normal and well kempt Mental Status: mental status grossly normal Speech and movement: Normal speech and movement present and Clear speech present Affect: normal affect Attitude: cooperative Thought process: Normal thought process present Thought content: Normal thought content present Insight: Good insight present (Psych) Judgement: Good judgement present (Psych) Assessment & Plan Assessment & Plan (1) Right hip pain: Code(s): M25.551 - Pain in right hip Category: Medical (2) Sacroiliac joint dysfunction of right side: Code(s): M53.3 - Sacrococcygeal disorders, not elsewhere classified Category: Medical (3) Lumbar degenerative disc disease: Code(s): M51.36 - Other intervertebral disc degeneration, lumbar region Category: Medical (4) Discogenic lumbar pain: Code(s): M54.59 - Other low back pain Category: Medical (5) Lumbar spondylosis: Code(s): M47.816 - Spondylosis without myelopathy or radiculopathy, lumbar region Category: Medical (6) Osteoporosis: Code(s): M81.0 - Age-related osteoporosis without current pathological fracture Category: Medical (7) Compression fracture of L1 lumbar vertebra: Code(s): S32.010A - Wedge compression fracture of first lumbar vertebra, initial encounter for closed fracture Category: Medical Plan Very good results of L1 kyphoplasty. Patient will seek help through primary care physician referral base to treat her osteoporosis. She also wants to go to physical therapy. I told her that maintaining balance will be main goal of physical therapy occupational therapy in her case. No physical therapy unfortunately can not increase the strength of her bones. No new appointment. Coding Level of Care Code Est Pt Level 3 (08249) Diagnoses Right hip pain M25.551 Sacroiliac joint dysfunction of right side M53.3 Lumbar degenerative disc disease M51.36 Discogenic lumbar pain M54.59 Lumbar spondylosis M47.816 Osteoporosis M81.0 Compression fracture of L1 lumbar vertebra S32.010A
[2024-01-22 13:29] VITALS: BP 135/70; PULSE 94; RESP 14; O2SAT 94; BMI 33.7
== END 2024-01-22 13:53 | disposition home or self-care (01) ==
PROVIDERS: PCP Internal Medicine; Visit Provider Anesthesiology
DX: M25.551 Pain in right hip (principal); M53.3 Sacrococcygeal disorders, not elsewhere classified; M51.360 Other intervertebral disc degeneration, lumbar region with discogenic back pain only; M47.816 Spondylosis without myelopathy or radiculopathy, lumbar region; M81.0 Age-related osteoporosis without current pathological fracture; S32.010A Wedge compression fracture of first lumbar vertebra, initial encounter for closed fracture
CPT/HCPCS: 99024

== ENCOUNTER → 2024-01-22 13:20 | Outpatient (BNVA) | payer OTHER, SELFPAY | PROVIDERS: PCP Internal Medicine; Visit Provider Anesthesiology | DX: M25.551 Pain in right hip (principal); M25.512 Pain in left shoulder; M81.0 Age-related osteoporosis without current pathological fracture; M53.3 Sacrococcygeal disorders, not elsewhere classified; M51.360 Other intervertebral disc degeneration, lumbar region with discogenic back pain only; M47.816 Spondylosis without myelopathy or radiculopathy, lumbar region; S32.010A Wedge compression fracture of first lumbar vertebra, initial encounter for closed fracture; X58.XXXA Exposure to other specified factors, initial encounter; Y93.89 Activity, other specified; Y92.9 Unspecified place or not applicable; Y99.9 Unspecified external cause status | CPT/HCPCS: 99212 ==

== ENCOUNTER 2024-08-29 13:46 | Outpatient (AMB) | payer OTHER, SELFPAY ==
--- NOTE | 2024-08-29 13:48 | A.OFFVIS_ITS ---
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 She reports that she needs to hold onto form objects to alleviate this pain. She has a history of kyphoplasty with me at T12 and L1 vertebra. She reports now that there is severe tenderness on palpation in projection of the most lower portion of her lumbar spine. She reports that it is difficult for her to take a deep breath or cough because this aggravate her pain. I suspect yet another compression fracture. I will send her for urgent MRI. I will see patient as soon as MRI is ready. Prior: In the past she received kyphoplasty from nm at T12 compression fracture. She recently fell on her buttocks and after that she went for MRI which demonstrated L1 compression fracture. Last time I was seeing her for diagnosis of VCF I recommended her to consider treatment for osteoporosis with primary care physician or senior administrative associate. Her primary care physician started her on alendronate the patient reported unpleasant and intolerable side effects. Unfortunately instead of switching medication her primary care physician just stopped the alendronate. Now the patient is suffering from yet another compression fracture of L1 this time. She reports severe pain in the projection of the upper lumbar spine. She reports difficulty breathing, she reports difficulty taking slow deep breath her pain is being exacerbated when she tries to do that. I will schedule this patient for kyphoplasty as soon as possible. She still has edema at L1 vertebra so we need to provide the service expeditiously. PRIOR: Patient is a pleasant 72 years old female with a history of T12 compression fracture, prior neck surgery and osteoporosis, presents today with worsening chronic low back pain for the past 8 months. She is accompanied by her . Patient reports left foot drop with walking, left sided weakness and frequent ba kiana issues with walking. Patient uses a cane with ambulation. She reports a fall 2 weeks ago when she was getting out of her car and her left leg gave out. Patient shows healing abrasions on her right elbow and left palm due to recent fall. Reports previous cervical spine surgery, anterior approach. She has seen her neurologist Dr. Downing yesterday and he ordered the patient to undergo cervical MRI with and without IV contrast at [facility] [place]. Her back is axial, spreads across her lower back without radiation to her lower extremities. She reports tenderness in the projections of both GTB. Patient reports limited cera. She also reports left shoulder pain that has been relieved with recent cortisone injection by her orthopedic provider. Patient reports bilateral foot pain and pain in her big toes. She has completed physical therapy and home exercise program in the past with temporary and minimal symptoms improvement. Currently she takes Tylenol with partial pain relief. She rates her pain at 5/10. [facility] Medical History Arthritis Urinary tract infection Left shoulder pain Left-sided weakness Hyperlipidemia GERD (gastroesophageal reflux disease) Depression COPD (chronic obstructive pulmonary disease) T12 compression fracture Osteoporosis Cervical spondylosis with myelopathy and radiculopathy Lumbar spondylosis Surgical History History of sleeve gastrectomy Hx of kyphoplasty H/O colonoscopy H/O: section H/O cervical spine surgery Social History Are you a primary hospice spiritual care coordinator to a significant other at home: No Do you presently have visiting nurse or other home services: No Alcohol intake: current Alcohol intake frequency: holidays/special occasions only Patient Tobacco Use Status: Former Tobacco user Tobacco use type: Cigarette Substance Use Type: Caffiene Review of Systems Const All systems reviewed & are unremarkable except as noted in HPI and below ENT Reports Normal hearing present Neuro Reports Normal hearing present, Denies confusion and Denies Sensory deficit (Neuro) Psych Denies confusion Physical Exam Vital Signs: Last Vital Signs Pulse 107 H 08/29/24 13:52 BP 126/81 08/29/24 13:52 Pulse Ox 98 08/29/24 13:52 Oxygen Delivery Method Room Air 08/29/24 13:52 BMI result Body Mass Index 34.4 Const General: cooperative, no acute distress, alert, awake and well groomed; No confusion Nutritional Appearance: average body habitus Orientation/consciousness: patient oriented x3 and No confusion Limitations: no limitations HEENT Head: Yes normal to inspection, Yes normocephalic, Yes atraumatic and No occipital foramen tenderness Ears: hearing grossly normal bilaterally Face and sinus: Yes normal facial exam and Yes face symmetric Mouth: moist mucous membranes Eyes General: appearance normal, both eyes and all related structures Visual Ruiz: normal visual ruiz by confrontation Pupils: Equal, round and reactive pupils present EOM: EOMs intact bilaterally Neck Other: Slightly decreased cervical ROM in all planes. Denies pain with cervical extension and flexion. Spurling compression test equivocal. Pain is unchanged by Spurling maneuver with retraction. Elvey's tension test positive on the left, with radiation of pain from neck to wrist. Lhermitte's test was negative. Diminished DTRs on the left, +2 on the right. Patient demonstrated 5/5 right and 4/5 left motor strength of bilateral upper extremities. 2 + radial pulses. Significant tightness throughout left upper trapezius as well as TTP throughout bilateral upper trapezius muscles. No paravertebral tenderness over facet joints bilaterally. Neck: Yes normal visual inspection, Yes no lymphadenopathy, Yes no meningeal signs, Yes supple, No anterior neck swelling and Yes no JVD Resp Effort & Inspection: normal respiratory effort, able to speak in complete sentences, no audible wheezes, no cough and symmetric chest movement Cardio Jugular venous distension: no JVD Bruits: no carotid bruits Peripheral pulses: radial pulses present, posterior tibial pulses present and dorsalis pedis present GI Inspection: Yes normal to inspection, No Abdominal wall edema and Yes obesity Palpation (GI): Soft to palpation and nontender General: Yes no CVA tenderness Back/Spine/Pelvis Other: Patient is able to walk and stand on heels and tip toes with mild difficulty on the left. Antalgic gait with limping on the right. Can flex forward to 70-75 degrees and extend to 5-10 degrees before experiencing lumbar pain. Demonstrates 5/5 strength of quadriceps bilaterally as well as flexion/dorsiflexion of bilateral feet against resistance. 2+ pedal pulses bilaterally. Straight leg rise with dorsiflexion negative bilaterally. Diminished patellar and achilles reflexes bilaterally. Facet loading test negative bilaterally Severe tenderness on palpation in the projection of the lower lumbar spine. Tenderness on percussion in the projection of the lower lumbar spine. Back: no CVA tenderness Cervical Spine: normal cervical lordosis, loss of normal cervical lordosis, cervical muscular tenderness, No pain with cervical ROM, Cervical spine scars present (anterior), No Cervical spine tenderness and No step off deformity Skin General skin exam: no rashes or lesions noted Trauma: abrasion (healing abrasions right elbow and left palm r/t recent fall) Neuro General: patient oriented x3, tone normal, moves all extremities, no meningeal signs, CN's II-XI intact bilaterally and No confusion Cranial nerves: Yes Equal, round and reactive pupils present, Yes Bilaterally intact EOM present and Yes Normal hearing present Cognition (Neuro): normal cognition Gait exam (Neuro): Antalgic gait present, Shuffling gait present (on the left) and No Assistive device used Motor exam (neuro): 5/5 motor strength present throughout, no tremor noted, Normal motor muscle tone present throughout and Motor abnormalities not present Sensory Exam: No Sensory deficit (Neuro) Coordination: Romberg test positive Extrem General: Yes capillary refill normal, Yes no clubbing, cyanosis or edema and Yes no calf tenderness Psych Appearance: grossly normal and well kempt Mental Status: mental status grossly normal Speech and movement: Normal speech and movement present and Clear speech present Affect: normal affect Attitude: cooperative Thought process: Normal thought process present Thought content: Normal thought content present Insight: Good insight present (Psych) Judgement: Good judgement present (Psych) Assessment & Plan Assessment & Plan (1) Right hip pain: Code(s): M25.551 - Pain in right hip Category: Medical (2) Sacroiliac joint dysfunction of right side: Code(s): M53.3 - Sacrococcygeal disorders, not elsewhere classified Category: Medical (3) Lumbar degenerative disc disease: Code(s): M51.36 - Other intervertebral disc degeneration, lumbar region Category: Medical (4) Discogenic lumbar pain: Code(s): M54.59 - Other low back pain Category: Medical (5) Lumbar spondylosis: Code(s): M47.816 - Spondylosis without myelopathy or radiculopathy, lumbar region Category: Medical (6) Osteoporosis: Code(s): M81.0 - Age-related osteoporosis without current pathological fracture Category: Medical (7) Compression fracture of L1 lumbar vertebra: Code(s): S32.010A - Wedge compression fracture of first lumbar vertebra, initial encounter for closed fracture Category: Medical (8) Compression fracture of L5 vertebra: Code(s): S32.050A - Wedge compression fracture of fifth lumbar vertebra, initial encounter for closed fracture Category: Medical Plan History of T12 and L1 kyphoplasty with very good results in the past. She reported now severe pain in the projection of the most lower portion of the lumbar spine. She reports that before that pain started she experienced minor trauma. I suspect that she has yet another compression fracture of the lumbar spine. I will schedule her for urgent MRI. Orders: Orders MR lumbar spine wo con Today S32.050A - Wedge compression fracture of fifth lumbar vertebra, initial encounter for closed fracture Coding Level of Care Code Est Pt Level 3 (39829) Diagnoses Right hip pain M25.551 Sacroiliac joint dysfunction of right side M53.3 Lumbar degenerative disc disease M51.36 Discogenic lumbar pain M54.59 Lumbar spondylosis M47.816 Osteoporosis M81.0 Compression fracture of L1 lumbar vertebra S32.010A Compression fracture of L5 vertebra S32.050A
[2024-08-29 13:52] VITALS: BP 126/81; PULSE 107; O2SAT 98; BMI 34.4
--- OUTSIDE RECORDS SUMMARY | 2024-08-29 14:25 | XMS_ITS | Clinical Summary ---
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 1 Active FLUoxetine (PROzac) 10 mg capsule 3 Active fluticasone propionate (FLONASE) 50 mcg/actuation nasal spray 2 Sprays by Nasal route daily. 4 Active lactulose (CHRONULAC) solution Take 15-30 mL by mouth daily (with breakfast). 4 Active multivit-min/fe rrous fumarate (MULTI VITAMIN ORAL) Take 1 Tab by mouth daily. Active omeprazole (PriLOSEC) [address] capsule Take 1 capsule by mouth daily. 1 Active oxyCODONE-aceta minophen (PERCOCET) 5-325 mg per tablet Take 1-2 Tablets by mouth every 4 hours as needed for Pain. 4 Active predniSONE (DELTASONE) 10 mg tablet Take 3 tabs for 3 days, take 2 tabs for 3 days, take 1 tab for 3 days 4 Active rosuvastatin (CRESTOR) 10 mg tablet TAKE 1 TABLET BY MOUTH DAILY 4 Active traZODone (DESYREL) 50 mg tablet Take 1/2 tab-2 tab qhs 0 Active trospium (SANCTURA) 20 mg tablet Take 1 Tablet by mouth 2 times daily. 4 Active fluticasone-ume clidinium-vilan terol (Trelegy Ellipta) 100-62.5-25 mcg inhaler Inhale 1 Puff into the lungs daily. 4 Active rOPINIRole (REQUIP) 0.25 mg tablet Take 2 tablets (0.5 mg total) by mouth 3 (three) times a day. 4 Active semaglutide (Wegovy) 1 mg/0.5 mL injection penIndications: Class 2 obesity due to excess calories with body mass index (BMI) of 37.0 to 37.9 in adult, unspecified whether serious comorbidity present Inject 1 mg under the skin every 7 (seven) days for 28 days. 2 mL 5 025 Active semaglutide (Wegovy) 0.5 mg/0.5 mL injection penIndications: Class 2 obesity due to excess calories with body mass index (BMI) of 37.0 to 37.9 in adult, unspecified whether serious comorbidity present Inject 0.5 mg under the skin every 7 (seven) days for 8 doses. 2 mL 1 5 025 Discontinued Active Problems Problem Noted Date Diagnosed Date Spondylosis 07/04/2024 Arthritis of knee 07/04/2024 Depression 07/04/2024 Heartburn 07/04/2024 Obesity (BMI 30-39.9) 07/04/2024 Stress incontinence in female 07/04/2024 High cholesterol 03/26/2024 Prediabetes 07/04/2023 Severe obesity (BMI 35.0-39. 9) with comorbidity ([facility] V24, [facility] V28) 07/04/2023 Overview (03/26/2024): s/p gastric sleeve (June 2017) Tubular adenoma 07/04/2023 Vitamin D deficiency 07/22/2021 Osteopenia 03/03/2021 Overview (03/26/2024): Bone Density 02/2021. Enchondroma 12/16/2020 Overview (03/26/2024): MRI Left Shoulder: 12/15/20: Repeat plain image 6 mth. Ordered. Atelectasis 04/23/2018 Chronic obstructive pulmonar y disease ([facility] V24, [facility] V28) 04/23/2018 Pulmonary nodules 04/23/2018 Moderate single current epis ode of major depressive disorder ([facility] V24, [facility] V28) 02/10/2016 Amblyopia 02/13/2013 Cortical cataract of both eyes 02/13/2013 Nuclear sclerosis 02/13/2013 Encounters Date Type Department Care Team Description 07/04/2024 9:30 AM EDT Consult Bariatric Surgery - [address] [place] [address] Shahram Lopez MD Class 2 obesity due to excess calories with body mass index (BMI) of 37.0 to 37.9 in adult, unspecified whether serious comorbidity present (Primary Dx) from Last 3 Months Immunizations Name Administration Dates Next Due COVID-19 (Pfizer/Comirnaty) 12yo and older 01/05/2024 Influenza Quadravalent, MDCK , 0.5ml, with preservative (Flucelvax) 6mo and older 04/13/2017 Influenza trivalent, 0.5mL ( Fluad) 65yo and older 01/05/2024,12/20/2022,01/09/2022,12/05,12/16/2019,04/15/2019,02/06/2018 Influenza trivalent, with pr eservative (Fluzone; Afluria) 6mo and older 12/21/2010 Moderna SARS-CoV-2 COVID-19, mRNA, LNP-S, preservative free 02/22/2021 Pneumococcal conjugate 13 va lent (Prevnar 13, PCV13) 2mo and older 09/18/2014 Pneumococcal polysaccharide 23 valent (Pneumovax 23) 2yo and older 04/13/2017 Tdap Tetanus diptheria acell ular pertussis (Boostrix; Adacel) 7yo and older 09/20/2013 Zoster Live 09/24/2013 Zoster recombinant (Shingrix ) 19yo and older 02/24/2021,12/05/2020 Surgical History Surgery Date Site/Laterality Comments NECK SURGERY PROCEDURE: HISTORICAL NECK SURGERY; COMMENT: 2nd to cervical disc disease SECTION PROCEDURE: HISTORICAL ; COMMENT: x 2 surgies TUBAL LIGATION PROCEDURE: HISTORICAL TUBAL LIGATION COLONOSCOPY 01/20/11 PROCEDURE: HISTORICAL COLONOSCOPY; COMMENT: adenoma; repeat in five yrs COLONOSCOPY W/ BIOPSIES 06/17/16 PROCEDURE: IL COLONOSCOPY W/BIOPSY SINGLE/MULTIPLE; COMMENT: adenoma; repeat in 5 yrs GASTRIC BYPASS 06/23/2017 PROCEDURE: [place] GASTRIC RSTCV W/BYP W/SM INT RCNSTJ LIMIT ABSRPJ Medical History Medical History Date Comments COPD (chronic obstructive pu lmonary disease) ([facility] V24, [facility] V28) DX:COPD (chronic o bstructive pulmonary disease) ([facility]) High cholesterol DX:High cholest geovani Bronchitis, not specified as acute or chronic DX:Bronchitis, not specified as acute or chronic Amblyopia 02/13/2013 DX:Amblyopia Family History Medical History Relation Name Comments Blindness Brother Cataracts Brother No Known Problems Daughter No Known Problems Father Prostate cancer Maternal Grandfather Lung cancer Maternal Grandmother metasta sized Bladder Cancer Mother Cataracts Mother Pancreatic cancer Mother's side cousin Brain cancer Other Nephew and Lung cancer No Known Problems Paternal Grandfather No Known Problems Paternal Grandmother Cataracts Sister Breast cancer Neg Hx Colon cancer Neg Hx Glaucoma Neg Hx Macular degeneration Neg Hx Ovarian cancer Neg Hx Strabismus Neg Hx Uterine cancer Neg Hx Relation Name Status Comments Brother Daughter Father Maternal Grandfather Maternal Grandmother Mother Mother's side Other Paternal Grandfather Paternal Grandmother Sister Social History Tobacco Use Types Packs/Day Years Used Date Smoking Tobacco: Former Cigarettes Q uit: 04/17/2007 Smokeless Tobacco: Never Tobacco Cessation:Counseling Given: Not Answered Alcohol Use Standard Drinks/Week Comments Yes 0 (1 standard drink = 0.6 oz pur e alcohol) Comments Unknown Sex and Gender Information Value Date Recorded Sex Assigned at Female 04/02/2024 12:59 PM EST Legal Sex Female 9:50 AM EST Gender Identity Female 04/02/2024 12:59 PM EST Sexual Orientation Straight 04/02/2024 1: 10 PM EST Obstetrics History Last Filed Vital Signs Vital Sign Reading Time Taken Comments Blood Pressure 103/58 07/04/2024 9:50 AM EDT Pulse 92 07/04/2024 9:50 AM EDT Temperature 36.6 ??C (97.8 ??F) 07/04/2024 9:50 AM ED T Respiratory Rate 16 04/22/2024 8:42 AM EST Oxygen Saturation - - Inhaled Oxygen Concentration - - Weight 84.4 kg (186 lb) 07/04/2024 9:50 AM EDT Height 149.9 cm (4' 11 ) 07/04/2024 9:50 AM EDT Body Mass Index 37.57 07/04/2024 9:50 AM EDT Plan of Treatment Upcoming Encounters Date Type Department Care Team (Late st Contact Info) Description 10/15/2024 8:15 AM EDT Office Visit Bariatric Surgery - [place] [address] [facility] [address] [place] [address] Shahram Lopez MD [address] [facility] [address] [place] [address] 12/10/2024 8:45 AM EDT Office Visit Urogynecology [address] [phone] Phyllis Mirza MD [address] [place] [address] [address] [place] [address] 12/10/2024 11:00 AM EDT Office Visit [facility] [place] [address] [place] [address] Johan Aldridge MD [address] [place] [address] 01/01/2025 10:30 AM EDT Appointment Radiology Department - [address] [phone] Health Maintenance Due Date Last Done Comments Depression Screening 03/26/2022 Falls Risk Assessment 03/26/2022 Social Influencers of Health Screening 03/26/2022 DTaP,Tdap,and Td Vaccines (2 - Td or Tdap) 09/21/2023 09/20/2013 COVID-19 Vaccine ( season) 2024 01/05/2024, 02/19/2023, 11/01/2021, Additional history exists Breast Cancer Screening 12/12/2025 12/13/19, 12/13/2023, 07/23/2021, Additional history exists Colorectal Cancer Screening: Colonoscopy 10/08/2028 10/09/2023 Cholesterol Screening (Lipid Panel) 01/07/2029 01/08/2024, 01/08/2024 Osteoporosis Screening (Bone Density Screening) 04/02/2034 04/02/2024, 03/01/2021 Hepatitis C Screening Completed 09/18/2014 Pneumococcal Vaccine: 50+ Years Completed 04/13/2017, 09/18/2014 Zoster Vaccines Completed 02/24/2021, 11/16, 09/24/2013 RSV Immunization Adult Patients Completed 02/19/2023 Influenza Vaccine Completed 01/05/2024, , 01/09/2022, Additional history exists HIB Vaccines Aged Out No longer eligi ble based on patient's age to complete this topic HPV Vaccines Aged Out No longer eligi ble based on patient's age to complete this topic Hepatitis A Vaccines Aged Out No long er eligible based on patient's age to complete this topic Hepatitis B Vaccines Aged Out No long er eligible based on patient's age to complete this topic IPV Vaccines Aged Out No longer eligi ble based on patient's age to complete this topic MMR Vaccines Aged Out No longer eligi ble based on patient's age to complete this topic Meningococcal ACWY Vaccine Aged Out N o longer eligible based on patient's age to complete this topic Meningococcal B Vaccine Aged Out No l onger eligible based on patient's age to complete this topic RSV Immunization Patients Under 20 months Aged Out No longer eligible based on patient's age to complete this topic Varicella Vaccines Aged Out No longer eligible based on patient's age to complete this topic Procedures Procedure Name Priority Date/Time Associated Diagnosis Comments BD BONE DENSITY DXA AXIAL SKELETON Routine 04/02/2024 1:47 PM EST Screening for osteoporosis LIPID PANEL Routine 01/08/2024 SCREENING MAMMOGRAPHY BI 2-VIEW BREAST INC CAD Routine 12/13/2023 9:52 AM EDT Encounter for screening mammogram for malignant neoplasm of breast HM COLONOSCOPY Routine 10/09/2023 HM HEPATITIS C SCREENING Routine 09/18/2014 from Last 3 Months or Most Recently Relevant to Health Maintenance Results * BD Bone Density DXA Axial Skeleton (04/02/2024 1:47 PM EST) Anatomical Region Laterality Modality Wrist, Hip, L-spine Bone Densito metry 04/02/2024 4:06 PM EST Impressions 04/02/2024 4:09 PM EST Osteoporosis by WHO criteria. The [facility] Department of Internal Medicine recommends using National Osteoporosis Foundation (NOF) guidelines in treatment decisions related to osteoporosis. NOF guidelines suggest considering treatment for postmenopausal women and men aged 50 or older presenting with the following: History of hip or vertebral fracture. T-score = -2.5 (DXA) at the femoral neck, total hip, or spine, after appropriate evaluation to exclude secondary causes. Low bone mass (T-score between -1.0 and -2.5 at the femoral neck or spine) AND a 10-year probability of a hip fracture = 3% OR a 10-year probability of a major osteoporosis-related fracture = 20% based on the [place]-adapted WHO algorithm Please note that all treatment decisions require clinical judgment and consideration of individual patient factors, including patient preferences, co-morbidities, previous drug use, risk factors not captured in the FRAX model (e.g., frailty, falls, vitamin D deficiency, increased bone turnover, interval significant decline in bone density) and possible under- or over-estimation of fracture risk by FRAX. Optional alternative screening schedule based on sebastián Mark., [facility] May 05, 2011 for patients with osteopenia (based on hip BMD T-score) is as follows: * ??advanced osteopenia (T scores -2.00 to -2.49), BMD testing every year * ??moderate osteopenia (T scores -1.50 to -1.99), BMD testing every 5 years mild osteopenia or normal BMD (T scores -1.50 and higher), BMD testing every 15 years -------- FINAL REPORT -------- Dictated By: Daisy Ellison Dictated Date: 04/02/2024 16:06 ET Assigned Physician: Daisy Ellison Reviewed and Electronically Signed By: Daisy Ellison Signed Date: 04/02/2024 16:09 ET Workstation ID: [id number] Transcribed By: Self Edit Transcribed Date: 04/02/2024 16:06 ET Narrative 04/02/2024 4:09 PM EST BONE DENSITY SCAN (DEXA): FINDINGS: Lumbar Spine L2-L4, L1 excluded due to vertebroplasty change. T-score is -2.5. ?? (SD relative to 20-29 y/o adult) Z-score is -0.1. ??(SD relative to age matched peers) This is considered osteoporosis by WHO criteria. Left Hip T-score is -1.5. Z-score is 0.5. This is considered osteopenia by WHO criteria. Left Forearm T-score is -4.1. Z-score is -1.7. This is considered osteoporosis by WHO criteria. Comparison exam(s): 03/01/2021 for the spine and left hip, no prior study for comparison of the left forearm. ??5.9% loss of lumbar spine bone mineral density which is statistically significant at the 95% confidence level. ??No statistically significant change in left hip bone mineral density. Lateral survey view of the thoracolumbar spine shows compression deformities with vertebroplasty change in T12 and L1. Procedure Note Daisy Ellison MD - 04/02/2024 BONE DENSITY SCAN (DEXA): FINDINGS: Lumbar Spine L2-L4, L1 excluded due to vertebroplasty change. T-score is -2.5. (SD relative to 20-29 y/o adult) Z-score is -0.1. (SD relative to age matched peers) This is considered osteoporosis by WHO criteria. Left Hip T-score is -1.5. Z-score is 0.5. This is considered osteopenia by WHO criteria. Left Forearm T-score is -4.1. Z-score is -1.7. This is considered osteoporosis by WHO criteria. Comparison exam(s): 03/01/2021 for the spine and left hip, no prior studyfor comparison of the left forearm. 5.9% loss of lumbar spine bonemineral density which is statistically significant at the 95% confidencelevel. No statistically significant change in left hip bone mineraldensity. Lateral survey view of the thoracolumbar spine shows compressiondeformities with vertebroplasty change in T12 and L1. IMPRESSION: Osteoporosis by WHO criteria. The [facility] Department of Internal Medicine recommendsusing National Osteoporosis Foundation (NOF) guidelines in treatmentdecisions related to osteoporosis. NOF guidelines suggest consideringtreatment for postmenopausal women and men aged 50 or older presentingwith the following: History of hip or vertebral fracture. T-score = -2.5 (DXA) at the femoral neck, total hip, or spine, afterappropriate evaluation to exclude secondary causes. Low bone mass (T-score between -1.0 and -2.5 at the femoral neck or spine)AND a 10-year probability of a hip fracture = 3% OR a 10-year probabilityof a major osteoporosis-related fracture = 20% based on the [place]-adapted WHOalgorithm Please note that all treatment decisions require clinical judgment andconsideration of individual patient factors, including patientpreferences, co-morbidities, previous drug use, risk factors not capturedin the FRAX model (e.g., frailty, falls, vitamin D deficiency, increasedbone turnover, interval significant decline in bone density) and possibleunder- or over-estimation of fracture risk by FRAX. Optional alternative screening schedule based on sebastián Mark., [facility] for patients with osteopenia (based on hip BMD T-score)is as follows: * advanced osteopenia (T scores -2.00 to -2.49), BMD testing every year * moderate osteopenia (T scores -1.50 to -1.99), BMD testing every 5years mild osteopenia or normal BMD (T scores -1.50 and higher), BMD testingevery 15 years -------- FINAL REPORT -------- Dictated By: Daisy Ellison Dictated Date: 04/02/2024 16:06 ET Assigned Physician: Daisy Ellison Reviewed and Electronically Signed By: Daisy Ellison Signed Date: 04/02/2024 16:09 ET Workstation ID: [id number] Transcribed By: Self Edit Transcribed Date: 04/02/2024 16:06 ET Vikki CARTER IMG DXA PROCEDURES Final Resu lt * (ABNORMAL) Lipid panel (01/08/2024) LDL/HDL Ratio 2 0 - 4 Triglycerides 186(A) 0 - 150 mg/dL Cholesterol 160 0 - 200 mg/dL HDL 70 >=40 mg/dL LDL Cholesterol 53 0 - 100 mg/dL Blood Venous blood specimen / Unknown Historical Provider LAB BLOOD ORDERABLES Veronica l Result * SCREENING MAMMOGRAPHY BI 2-VIEW BREAST INC CAD (12/13/2023 9:52 AM EDT) Anatomical Region Laterality Modality Radiographic Mansi ging 07/04/2023 6:04 PM EDT Narrative 12/13/2023 7:26 PM EDT This is a summary report. The complete report is available in the patient's medical record. If you cannot access the medical record, please contact the sending organization for a detailed fax or copy. BILATERAL 3D DIGITAL SCREENING MAMMOGRAM History: Routine screening. ??No current breast complaints. ?? Comparison: Multiple priors dating back to 04/29/2019 Technique: Bilateral full-field digital 3D mammography was performed using standard CC and MLO projections CAD was used to evaluate this mammogram. Findings: Density: ??There are scattered areas of fibroglandular density-B RIGHT: No suspicious masses, groups of microcalcification or areas of architectural distortion identified. Stable typically benign parenchymal asymmetries LEFT: No suspicious masses, groups of microcalcifications or areas of architectural distortion identified. Stable typically benign parenchymal asymmetries IMPRESSION: : 1. ??No mammographic evidence of malignancy. BI-RADS Category 2 benign findings Recommendation: Routine annual screening mammography is recommended Procedure Note Gina Palacio MD - 01/31/2024 This is a summary report. The complete report is available in thepatient's medical record. If you cannot access the medical record, pleasecontact the sending organization for a detailed fax or copy. BILATERAL 3D DIGITAL SCREENING MAMMOGRAM History: Routine screening. No current breast complaints. Comparison: Multiple priors dating back to 04/29/2019 Technique: Bilateral full-field digital 3D mammography was performed usingstandard CC and MLO projections CAD was used to evaluate this mammogram. Findings: Density: There are scattered areas of fibroglandular density-B RIGHT: No suspicious masses, groups of microcalcification or areas ofarchitectural distortion identified. Stable typically benign parenchymalasymmetries LEFT: No suspicious masses, groups of microcalcifications or areas ofarchitectural distortion identified. Stable typically benign parenchymalasymmetries IMPRESSION: : 1. No mammographic evidence of malignancy. BI-RADS Category 2 benign findings Recommendation: Routine annual screening mammography is recommended Vikki CARTER IMG XR PROCEDURES Final Resul t * Colonoscopy (10/09/2023) Colonoscopy negative, abstracted Anatomical Region Laterality Modality Other Historical Provider HEALTH MAINTENANCE Final Result * Hepatitis C Screening (09/18/2014) Hepatitis C Screening abstracted Historical Provider HEALTH MAINTENANCE Final Result from Last 3 Months or Most Recently Relevant to Health Maintenance Insurance [facility] Care Teams Roller Repairer Relationship Specialty Start Date End Date Johan Aldridge MD [address] [place] [address] [phone] PCP - General Internal Medicine 04/02/24
--- OUTSIDE RECORDS SUMMARY | 2024-08-29 14:25 | XMS_ITS | Data Portability ---
Author Organization [place] - [facility], Allergy Address [address] [place] [id number] Care Team Providers Care Jammer Hooker Name Role Phone EMILY JIANG Primary Care Provider Assessment Encounter Date Assessment Date Assessment LastModified by Organization Details LastModified Time 02/01/2024 02/01/2024 Patient has significant unsteadiness while ambulatory. This is unlikely to be related to a specific inner ear problem, and is more likely related to her chronic low back pain, and her lack of coordination and strength of the left lower extremity. I recommended she continue to work with neurology in this regard. Recommend strongly against the use of meclizine, benzodiazepines or other vestibular suppressants as this will only make her symptoms worse. [email or web address] Not available 02/01/2024 10:29:39 Plan of Treatment Reminders Order Date Submit Date Provider Last Modified By Organization Details Last Modified Time Details Appointments None record ed. Lab None record ed. Referral None record ed. Procedures None record ed. Surgeries None record ed. Imaging None record ed. Medication Orders None record ed. Patient TargetsNo targets recorded. Patient InstructionsNo instructions recorded. Reason for Referral None Reported. Results Created Date Observation Date Name Description Value Unit Range Abnormal Flag Note LastModifiedBy Organization Detail LastModifiedTime 02/01/20 audio gram No observ ation record ed. [email or web address] Not Available 14:45:52 02/05/2002/01/2024 audio gram No observ ation record ed. [email or web address] [facility] [address], [place], [address], 02/05/2024 21:08:24 02/06/2007/24/2023 MRI, brain , w/wo contr ast No observ ation record ed. [email or web address] Not Available 2023 11:34:38 Result Notes None recorded. Problems Name Problem SNOMED Code Status Onset Date Resolution Date Notes Provider Name and Address Organization Details Recorded Time Sensorineural hearing loss of bilateral ears 325159418 Active 2023 MASOOD LEONARDO AUD [address] [facility], [facility], [place], [address], [facility] - [facility] [place] 4 09:38:56 Dizziness and giddiness 923652441 Active 2023 MASOOD LEONARDO [address], [place], [address], [facility] - [facility] [place] 4 09:39:10 Unsteady when walking 77144734 Active 2023 MARIE GALEANO MD [address] [place] [address], [facility], [place], [address], [facility] - [facility] 4 10:26:55 Monoparesis of lower limb 152790917 Active 2023 MARIE GALEANO MD [address] [facility], [facility], [place], [address], [facility] - [facility] [place] 4 10:27:39 Benign paroxysmal positional vertigo 597104506 Active 2023 MARIE GALEANO MD [address] [place] [address], [facility], [place], [address], [facility] - [facility] [place] 4 10:27:44 Problem Notes None recorded. Procedures Surgical History Date Name Laterality Status Provider Name and Address Organization Details Recorded Time 02/01/2024 Comp Audio with Tymps - 83417 & 34850 completed MASOOD LEONARDO AUD [address] [facility],[place] [address], [place], [address], [facility] - [facility] [place] 02/01/2024 09:38:49 Imaging Results Imaging Date Name Status LastModified by Organiz ation Details LastModified Time 02/01/2024 [facility] 02/01/2024 14:45:52 02/01/2024 audiogram completed [email or web address] [facility] [address], [place], [address], 02/05/2024 21:08:24 07/24/2023 MRI, brain, w/wo contrast completed [email or web address] Information not available 02/07/2024 11:34:38 Procedure Notes None recorded. Medical Equipment None Reported. Allergies No known drug allergies Medications Name Sig Start Date Stop Date Status Note LastModified by Organization Details LastModified Time amoxicillin 500 mg capsule TAKE ONE CAPSULE BY MOUTH THREE TIMES A DAY 01/31 completed Not Available Not Available Not Available prednisone 10 mg tablet TAKE 3 TABLETS DAILY FOR 3 DAYS, THEN TAKE 2 TABLETS DAILY FOR 3 DAYS THEN TAKE 1 TABLET DAILY FOR 3 DAYS 01/31 completed Not Available Not Available Not Available senna 8.6 mg tablet TAKE TWO TABLETS BY MOUTH EVERY DAY NEEDED FOR CONSTIPAT ION FOR UP TO 7 DAYS active Not Available Not Available No t Available ondansetron HCl 4 mg tablet TAKE 1 TABLET EVERY 4-6 HOURS NEEDED FOR NAUSEA 01/31 completed Not Available Not Available Not Available tramadol 50 mg tablet TAKE ONE TABLET BY MOUTH TWICE A DAY NEEDED FOR PAIN FOR UP TO 5 DAYS. MAY CAUSE DROWSINES S, DO NOT DRIVE WHILE TAKING MEDICATIO N active Not Available Not Available No t Available oxycodone-a cetaminophe n 5 mg-325 mg tablet TAKE 1 TO 2 TABLETS BY MOUTH EVERY 4 HOURS NEEDED FOR PAIN active Not Available Not Available No t Available IBU 600 mg tablet TAKE 1 TABLET BY MOUTH EVERY 4-6 HOURS NEEDED 01/31 completed Not Available Not Available Not Available fluoxetine 10 mg capsule active Not Available Not Available Not Available docusate sodium 100 mg capsule TAKE ONE CAPSULE BY MOUTH TWICE A DAY NEEDED FOR CONSTIPAT ION FOR UP TO 7 DAYS active Not Available Not Available No t Available omeprazole 20 mg capsule,del ayed release Take 1 capsule every day by oral route. active Not Available Not Available No t Available bisacodyl 5 mg tablet,benny yed release TAKE TWO TABLETS BY MOUTH RIGHT BEFORE YOUR FIRST DOSE OF LIQUID PREP 01/31 completed Not Available Not Available Not Available carbidopa 25 mg-levodopa 100 mg tablet active Not Available Not Available Not Available fluticasone propionate 50 mcg/actuati on nasal spray,suspe nsion 01/31 completed Not Available Not Available Not Available Enulose 10 gram/15 mL oral solution TAKE 15 TO 30 ML BY MOUTH DAILY WITH BREAKFAST ) active Not Available Not Available No t Available oxycodone 5 mg tablet TAKE ONE TABLET BY MOUTH EVERY 8 HOURS NEEDED FOR POST-OPER ATIVE PAIN FOR 5 DAYS.MAX DAILY DOSE 3 PILLS. active Not Available Not Available No t Available rosuvastati n 10 mg tablet active Not Available Not Available Not Available trospium 20 mg tablet active Not Available Not Available No t Available chlorhexidi ne gluconate 0.12 % mouthwash SWISH AND SPIT OUT 15ML 1 CAPFUL) IN THE MORNING AND EVENING FOR 2 WEEKS 01/31 completed Not Available Not Available Not Available GaviLyte-G 236 gram-22.74 gram-6.74 gram-5.86 gram oral solution STARTING AT 6PM THE NIGHT BEFORE YOUR PROCEDURE DRINK 1 8OZ GLASSES AT YOUR OWN PACE UNTIL RECTALS RUN CLEAR. 01/31 completed Not Available Not Available Not Available Trelegy Ellipta 100 mcg-62.5 mcg-25 mcg powder for inhalation active Not Available Not Available N ot Available Vitals None Recorded Social History None recorded. Functional Status None recorded. Mental Status None recorded. Family History Nothing Reported. Medical History Condition Response Anxiety Y Depression Y Gynecological HistoryNo gynecological history recorded. Obstetrics History GPAL:G 0 P 0 0 0 0 Past Encounters Encounter ID Performer Location Encounter Start Date Encounter Closed Date Diagnosis/Indication Diagnosis SNOMED-CT Code Diagnosis ICD10 Code Diagnosis Note [id number] MARIE GALEANO MD [facility] [address] [address] 02/01/2024 09:18:07 02/01/2024 10:25:03 Sensorineural hearing loss of bilateral ears 721882695 H90.3 Right Ear:Mild to severe SNHL with excellent speech discrimina tion.Type As tympanogra m.Left Ear:Mild to severe SNHL with excellent speech discrimina tion.Type A tympanogra m.Patient' s audiogram shows bilateral {{mild mod erate* sev ere}} sensorineu ral hearing loss with {{well maintained * moderate ly reduced po or}} speech discrimina tion. There is enough hearing loss to affect day-to-day hearing performanc e. We discussed in detail the pros and cons of amplificat ion (hearing aids). We discussed the connection between untreated hearing loss and increased risk of dementia, falling and accidents. After full discussion , the patient expressed {{interest * no interest}} in learning more about amplificat ion options. Accordingl y {{we will set them up for a hearing aid evaluation * I have provided a copy of the audiogram and medical clearance for amplificat ion so the patient can pursue this at their convenienc e I have provided a copy of the audiogram, a list of [facility] hearing aid providers, and medical clearance for amplificat ion so the patient can pursue this at their convenien e}}. Patient is medically cleared for amplificat ion {{in the right ear in the left ear bilate rally*}}. Dizziness and giddiness 745747381 R42 Unsteady when walking 22 456190 R26.89 Monoparesi s of lower limb 270098152 G83.12 Benign par oxysmal positional vertigo 857970091 H81.12 Patient with episodic positional ly induced vertigo. Storm-Hallpi ke was positive for vertigo and rotary nystagmus with the head to the {{right le ft*}}. We discussed that the patient? s pattern of symptoms and physical exam findings are most consistent with benign paroxysmal positional vertigo (BPPV). The pathophysi ology of BPPV was discussed in detail. Patient was provided with a referral to [facility] for Aura maneuvers and vestibular therapy. We discussed the fact that treatment of BPPV can require anywhere from 1 to 6 treatments for successful results, and has approximat rekha 95% success rate in eliminatin g symptoms. BPPV can recur and if the classic positional ly induced symptoms do recur, patient can call for further referrals. Patient can also undergo a course of vestibular rehabilita tion therapy which may help with her overall balance function as well. [id number] JUANA MC[facility]ON [facility] - [facility] [address] [facility] [address] 02/28/2024 12:45:34 03/01/2024 07:25:57 Sensorineural hearing loss of bilateral ears [id number] H90.3 Health Concerns Section Related Observation LastModified by Organization Detai ls LastModified Time None Recorded Concern Status LastModified by Organization Details LastModified Time None Recorded Advance Directives Directive None Recorded Payers Insurance Date Sequence Insurance Name Policy Number Policy Boles Covered Member ID Boles Member ID Guarantor Name 02/28/2024 1 [facility] - [facility] [employer] - FAMILY HEALTH PLAN (POS) [id number] Kathya Erika Mccoy [id number] Kathya Mccoy Notes Date Note Type Note Provider Name and Address Organization Details Recorded Time 02/01/2024 text/html 73-year-old sudarshan dasilva who comes in today for evaluation of her hearing and balance. She has been noticing difficulty hearing in a number of different listening situations which is confirmed by her who is with her today. She turns the TV up very loud and still has difficulty.In addition, the patient has been dealing with a chronic balance disturbance. Patient reports that when she lays flat and rolls over in bed to the left, she will have about 15 to 30 seconds of spinning vertigo, which will subside upon rolling back or sitting upright. In addition, patient has chronic low-level imbalance. She has been under workup by neurology for a left lower extremity weakness/coordination issue which is ongoing. She has had several neck and back surgeries. Patient does not have any sensation of motion when sitting down, but she is very unsteady on her feet when she tries to ambulate. She uses a cane for ambulation and also relies on her for assistance while ambulatory. MARIE GALEANO MD [address] [place] [address], [phone], [facility] - [facility] 02/01/2024 10:30:16 02/28/2024 text/html Patient with rep orted gradual onset SNHL here with her to discuss fitting of amplification as a first time user. Patient has seen an wholesale buyer who has provided medical clearance for the use of hearing devices.Reviewed history of hearing loss, the impact on hearing loss on communicative ability and patient's goals for amplification. After discussing the pros and cons of various models and levels of technology, the patient was given the approximate cost for the mid level [employer] technology.She has no ins benefit. They will discuss this and call if they have any additional questions or wish to proceed.On a side note, she has responded very well to her vestibular therapy. MASOOD LEONARDO, [facility] [address] [facility],[place] [address], [place], [address], [facility] - [facility] 02/28/2024 13:31:59 OBGyn Episode No OBEpisode recorded.
--- OUTSIDE RECORDS SUMMARY | 2024-08-29 14:25 | XMS_ITS | Data Portability ---
Author Organization [facility] [employer], [place] Address [address] [address] Care Team Providers Care Financial Institution Manager Name Role Phone SAV JIANG Referring Provider [phone] EMILY JIANG Referring Provider [phone] EMILY JIANG Primary Care Provider Assessment Encounter Date Assessment Date Assessment LastModified by Organization Details LastModified Time 06/09/2022 06/09/2022 IMPRESSION: early 2021 onset of left-sided weakness. Past history per PCP includes status post cervical spine surgery for disc disease, COPD? f ormer smoker; reactive depression, status post gastric bypass. Neurological exam reflects bilateral Babinski sign but is otherwise unrevealing. More particularly, other findings on the neurological exam do not suggest a specific neurological condition, including aspects of her gait and aspects of her coordination exam including completely stopping tapping her left foot saying her whole left lower extremity is tired and so she cannot go on. Nevertheless she has fallen. I cannot say whether the bilaterally is chronic related to her cervical spine surgery 30 years ago or new relating to her new symptoms starting 1 year ago. Therefore, cervical spine MRI imaging is indicated. Otherwise, physical therapy would be indicated. She does not believe in physical therapy. I defer to primary care for more discussion on this issue. We discussed that I agree with the physical therapist that she should be using her cane, given her falling. Her mentions that they are compression fractures in the lumbar spine and his friend, the physician, was concerned about lumbar spine issues relating to her gait and left lower extremity symptoms. We discussed that neither her history nor her exam suggest this. PLAN Kathyaaida Delgado June 09, 2022 MRI with and without contrast of cervical spine for 1 year of feeling of weakness in the left lower extremity, gait imbalance with falls, a feeling of weakness in the left upper extremity, history of cervical spinal fusion 30 years ago, and bilateral Babinski signs of unknown duration chronicity. Referral sent to [facility] after discussion about this with patient: Reasoning: although patient is within the [facility] system, I can see imaging within the [facility] system. Follow-up afterwards pk Not available 06/09/2022 14:17:47 07/06/2022 07/06/2022 IMPRESSION: Late 2020 onset of left-sided weakness. Past history per PCP includes status post cervical spine surgery for disc disease, COPD? f ormer smoker; reactive depression, status post gastric bypass. --recent fall Initial neurological exam reflects bilateral Babinski sign but is otherwise unrevealing. More particularly, other findings on the neurological exam do not suggest a specific neurological condition, including aspects of her gait and aspects of her coordination exam including completely stopping tapping her left foot saying her whole left lower extremity is tired and so she cannot go on. In addition , today there was slowness and inconsistent movement of left-sided finger tapping. IMAGING MRI cervical spine with and without contrast June 28, [address] Zeinab Locke, [facility] [facility]: Cervical cord normal in signal and caliber; no more than mild central canal stenosis C4-5 bilateral severe neuroforaminal stenosis C5-6 evidence of prior anterior fusion and discectomy with osseous fusion noted across disc space C6-7 right moderate to severe neuroforaminal stenosis. I reviewed the imaging and I agree with the neuroradiology dictation. In particular, there is no central spinal abnormality that might affect the cord and the cord looks normal. No etiology is found for her left lower extremity or foot feeling of weakness and signs of irregular, difficult or forced movement with the left lower extremity on exam June 09, 2022. I examined rapid alternating movements with feet and fingers again. There was the same asymmetry with foot tapping although she did not say that it was tired and stopped tapping today (initial exam was done with her standing; exam today was with her sitting and with her standing). In addition however, today there was slowness and inconsistent movement of left-sided finger tapping. No feeling that her left lower back pain is affecting her foot movement or any pain in general is affecting her finger movement. Nevertheless, she wonders if this is the reason for her left lower extremity feeling of weakness and for exam signs of abnormal movement of left foot initially and of left foot and fingers today. I cannot exclude this possibility. An argument against this: There was no changing nature of that left lower back pain from her memory or her 's memory around the time that her left lower extremity feeling of weakness emerged 1.5 years ago or so. On the other hand, I do not have a different explanation. MRI C-spine shows no answer. Her and she give history that brain MRI after the feeling of weakness emerged showed no answer. She has no tenderness around the thoracic spine to make me feel additional imaging there is indicated (and this would not explain her halting left-sided finger tapping today). Perhaps she is right. Discussed that we will find out should the pain center be successful in eliminating her left lower back pain. Her wonders whether physical therapy might help. It might but the patient is against this. She said this last time and does not disagree this time. PLAN Kathya Delgado July 06, 2022 I have no further directions of investigation or suggestions for changes in management beyond what is discussed above about physical therapy which the patient declined; we agree that follow-up will be as needed [email or web address] Not available 07/06/2022 13:59:22 Plan of Treatment Reminders Order Date Submit Date Provider Last Modified By Organization Details Last Modified Time Details Appointments None recorded. Lab None recorded. Referral None recorded. Procedures None recorded. Surgeries None recorded. Imaging MRI, cervical spine, w/wo contrast - for 1 year of feeling of weakness in the left lower extremity, gait imbalance with falls, a feeling of weakness in the left upper extremity, history of cervical spinal fusion 30 years ago, and bilateral Babinski signs of unknown duration chronicity . 2022 023 [email or web address] [facility] ([facility]), [address], [place], [address], 10:25:41 Medication Orders None recorded. Patient TargetsNo targets recorded. Patient Instructions Encounter Date Encounter Id Patient Instructions Last Modified By Organization Details Last Modified Time 06/09/2022 [id number] Discussion acros s issues of diagnoses and management and same day associated chart review and management greater than 50% greater than 90 minutes [email or web address] Not available 06/09/2022 14:18:58 07/06/2022 [id number] Discussion across issues of diagnoses and management and same day associated chart review and management greater than 50% greater than 40 minutes [email or web address] Not available 07/06/2022 13:55:23 Reason for Referral None Reported. Results Created Date Observation Date Name Description Value Unit Range Abnormal Flag Note LastModifiedBy Organization Detail LastModifiedTime 06/29/19 23 06/28/2022 MRI, cervi marilyn spine , w/wo contr ast [facility] [place] field Access ion Number : [id number] bergeron Name: Leif cruz, Kathya Manuela karie Record Number : [id number] Date of : 1949 Date of Exam: 2022 Referr ing Physic ze: Yessenia Downing MD Neurol [facility] [address] [address] Exam: MR Cervic al Spine (C-/C+ ) CPT 49544 Room Descri ption: [place] Siem Amanda 1.5 Mob MR Cervic al Spine (C-/C+ ) CPT 43882 INDICA TION: cervic al disc disord er with myelop athy cervic al disc disord er with myelop athy Protoc ol remote histor y of spinal surger y per techno logist notes, with left arm and finger numbne ss for one year. TECHNI QUE: MRI of the cervic al spine was perfor med with and withou t intrav enous contra st utiliz ing sagitt al T1, sagitt al T2, sagitt al STIR, axial gradie nt echo, axial T1, and axial T2-gorge ghted sequen leydi, and post-c ontras t sagitt al T1 and axial T1-gorge ghted sequen leydi. 17 mL Dotare m intrav enous contra st was admini stered . COMPAR DOM: None. FINDIN GS: ALIGNM ENT, VERTEB LAODNNA, MARROW , AND DISCS: The cervic al spine is straig htened which could be positi onal. Alignm ent is otherw ise mainta ined. There is fusion across the C5-C6 disc space. The remain ing interv ertebr al disc height s are mainta ined with multil evel margin al osteop hytes noted. No signif icant marrow signal abnorm ality. Verteb ral body height s are mainta ined. HARD METALS ENGRAVER HAND IOR FOSSA AND CORD: Visual ized boilermaker pipe fitter ior fossa is normal . The cervic al cord is normal in signal and calibe r. There is no abnorm al enhanc ement. PARASP INAL TISSUE S: Soft tissue s of the neck are unrema rkable . Major cervic al flow voids are presen t. DETAIL ED FINDIN GS BY LEVEL: C2-C3: Minima l centra l disc protru jenni. Left-s ided facet spurri ng. No signif icant canal stenos is or neural forami nal narrow ing. C3-C4: Broad- based disc bulge with facet and uncove rtebra l joint spurri ng result ing in mild spinal canal narrow ing. There is modera te left and mild to modera te right neural forami nal narrow ing. C4-C5: Broad- based disc osteop hyte comple x with facet and uncove rtebra l joint spurri ng. There is mild canal stenos is. There is severe bilate ral neural forami nal narrow ing. C5-C6: Anteri or fusion and discec briseida at this level with osseou s fusion across the disc space. Health Promotion Officer ior endpla te osteop hytes. No signif icant canal stenos is or neural forami nal narrow ing. C6-C7: Broad disc osteop hyte comple x with facet and uncove rtebra l joint spurri ng. Mild canal stenos is. Modera te left and modera te to severe right neural forami nal narrow ing. C7-T1: Disc bulge and facet spurri ng. No signif icant canal stenos is or neural forami nal narrow ing. IMPRES JENNI: Eviden ce of prior spinal fusion at C5-C6. Multil evel degene rative change s as descri bed above with varyin g degree s of neural forami nal stenos is at multip le levels , severe bilate rally at C4-C5 and modera te to severe on the right at C6-C7. Electr onical ly Signed By: Zeinab ruiz MD [email or web address] [facility] ([facility]) [address], [place], [address], 06/29/2022 13:03:11 Result Notes None recorded. Procedures Surgical History Date Name Laterality Status Provider Name and Address Organization Details Recorded Time 07/06/2022 DATA REVIEW completed Seth Downing MD [address] [place] [address], [phone], [facility] 07/06/2022 13:44:09 Imaging Results Imaging Date Name Status LastModified by Organiz ation Details LastModified Time 06/28/2022 MRI, cervical spine, w/wo contrast completed [email or web address] [facility] ([facility]) [address], [place], [address], 06/29/2022 13:03:11 Procedure Notes None recorded. Medical Equipment None Reported. Allergies Allergen ID Allergen Name Allergen Category Reaction Reaction Severity Criticality Documentation Date Start Date Code Code System Note Provider Name and Address Organization Details Recorded Time 230 Non-stero idal anti-infl ammatory agent (product) medicatio n Not available Not available Not available 06/09/2022 18099 005 SNOMED Barbara Coleman [facility] 13:07:50 Medications Name Sig Start Date Stop Date Status Note LastModified by Organization Details LastModified Time cyclobenzapri ne 10 mg tablet TAKE 1 TABLET BY MOUTH THREE TIMES DAILY NEEDED FOR MUSCLE SPASMS FOR UP TO 10 DAYS active Not Available Not Available No t Available amoxicillin 875 mg tablet TAKE ONE TABLET BY MOUTH EVERY 12 HOURS UNTIL FINISHED active Not Available Not Available No t Available fluoxetine 10 mg capsule active Not Available Not Available N ot Available Vitamin D2 1,250 mcg (50,000 unit) capsule TAKE ONE CAPSULE BY MOUTH ONCE A WEEK active Not Available Not Available No t Available fluticasone propionate 50 mcg/actuation nasal spray,suspens ion active Not Available Not Available Not Available rosuvastatin 10 mg tablet active Not Available Not Available Not Available diclofenac 1 % topical gel APPLY 2 GRAMS TO SINGLE ELBOW, WRIST OR HAND INCLUDING PALM/FINGE RS/BACK OF HAND) FOUR TIMES A DAY DIRECTED active Not Available Not Available No t Available Anoro Ellipta 62.5 mcg-25 mcg/actuation powder for inhalation active Not Available Not Available N ot Available Trelegy Ellipta 100 mcg-62.5 mcg-25 mcg powder for inhalation active Not Available Not Available N ot Available Vitals Date Recorded Body height Body mass index (BMI) Body weight Respiratory rate Provider Name and Address Organization Details Last Updated DateTime 06/09/2022 154.94 cm 36.5 kg/m2 07656.33 g 12 /min Barbara Coleman [facility] 06/09/2022 13:06:28 Social History Question Answer Notes LastModified by [employer] Details LastModified Time Tobacco Smoking Status Former Smoker Barbara Coleman ronald [facility] 06/09/2022 13:09:13 What Is Your Level Of Caffeine Consumption? Moderate 1 Cup Per Day Information not available 06/09/2022 What Is The Highest Grade Or Level Of School You Have Completed Or The Highest Degree You Have Received? [id number] Information not available 06/09/2022 Which Of Your Hands Is Dominant? Right Information not available 06/09/2022 Sex: Unknown Functional Status Question Answer Note LastModified by [employer] Details LastModified Time What is your level of alcohol consumption? Occasional Information not available 06/09/2022 Mental Status None recorded. Family History Nothing Reported. Medical History Condition Response Head Trauma/Injury N Depression Y Spine Problems N Obstructive Sleep Apnea N Alcoholism N Autoimmune disease N Arthritis N Cancer N Stroke N Heartburn, acid reflux, GERD Y Fibromyalgia N Headaches N Kidney Disease N Hospitalizations N Brain Tumors N Encephalitis N Vitamin B12 deficiency N PTSD N Bleeding Disorder N Cerebral Palsy N Tuberculosis N Back Problems N Asthma N Sleep Disorder N Hepatitis N High Cholesterol or Hyperlipidemia Y Lung Disease N COPD or emphysema Y Developmental Problems N Vitamin D Deficiency N Liver Disease N Claustrophobia N High Blood Pressure or Hypertension N Thyroid Problems N Heart Attack (AK) N Diabetes N Neck Problems N Epilepsy/Seizures N Bipolar Disorder N Aneurysm N Heart Disease N Osteoporosis N Gynecological HistoryNo gynecological history recorded. Obstetrics History GPAL:G 0 P 0 0 0 0 Past Encounters Encounter ID Performer Location Encounter Start Date Encounter Closed Date Diagnosis/Indication Diagnosis SNOMED-CT Code Diagnosis ICD10 Code Diagnosis Note [id number] Seth Downing MD [facility] [address] [place] [address] [place] [address] 06/09/2022 12:37:49 06/09/2022 16:46:48 Keeps losing balance 377725982 R26.81 Cervical d isc prolapse with myelopathy 689903415 M50.03 [id number] Seth Downing MD [facility] [address] [place] [address] [place] [phone] 07/06/2022 12:35:46 07/06/2022 15:57:29 Keeps losing balance 284980924 R26.81 Cervical d isc prolapse with myelopathy 313300927 M50.03 Health Concerns Section Related Observation LastModified by Organization Detai ls LastModified Time None Recorded Concern Status LastModified by Organization Details LastModified Time None Recorded Advance Directives Directive None Recorded Payers Encounter Date Sequence Insurance Name Policy Number Policy Boles Covered Member ID Boles Member ID Guarantor Name 06/09/2022 1 [facility] (O) Kathya Mccoy [id number] Kathya Mccoy 07/06/2022 1 [facility] (POS) [id number] Kathya Mccoy [id number] Kathya Mccoy Notes Date Note Type Note Provider Name and Address Organization Details Recorded Time 06/09/2022 text/html Gxpdrr-vd-ymhw normal, finger tapping normal, lmdu-vc-diac started hesitantly on the left but then normal speed without ataxia, foot tapping normal on the right but on the left, start slow and then stops completely saying that the leg is too tired. Romberg sign is absent with distraction.She presents for initial neurology consultation for assessment and management of early 2021 onset of left-sided weakness. Past history per PCP includes status post cervical spine surgery for disc disease, COPD? f ormer smoker; reactive depression, status post gastric bypass. She is unaccompaniedIn early 2021, ~1 year ago, out of the blue without any injury or episodes that might have triggered a problem, she began noticing weakness in her left lower extremity while walking. She noticed the weakness as dragging her foot and as causing some imbalance. And reports that he occasionally sees foot drop on the left. She has had chronic unchanging back pain until her fall 2 weeks ago after which the back pain worsened. She notices that she can jiggle her right leg normally but she cannot jiggle her left leg as fast.Early on after her left lower extremity weakness emerged, she was sent to physical therapy. It did not help. She did the home exercises initially but then stopped as she did not feel they would help. A cane has been suggested and she has a cane but she has decided not to use it. She has fallen about five times, most recently about 2 weeks ago. She has not sustained any fractures. In general, there has been no worsening or improvement of the feeling of left lower extremity weakness since it began.In addition, also in early 2021, she began noticing left upper extremity weakness and pain on the inside of her left shoulder. Because of this weakness, she found it hard to open a jar? s he noticed no pain associated with opening the jaw. In addition, she found it hard to fasten her bra in the back. This was associated with pain in the inside of her left shoulder. She had an injection into her shoulder. Since then, her left shoulder pain has resolved. She has no difficulty today moving her left arm behind her back to the region of her bra and no pain in particular. She has not noticed any improvement in ability to open a jar with her left hand. Seth Downing MD [address] [place] [address], [phone], [facility] 06/09/2022 14:19:03 07/06/2022 text/html Follow-up of ear ly 2021 onset of left-sided weakness. Past history per PCP includes status post cervical spine surgery for disc disease, COPD? f ormer smoker; reactive depression, status post gastric bypass. She is unaccompanied. Since initial neurology consultation June 09, 2002, she reports no new symptomatology. She and her provide more specific timing information? h er left lower extremity weakness began about 1.5 years ago, possibly back in 2020. In addition, she had brain MRI shortly after that because there was thought that stroke might have been involved: No correlating abnormality was found per patient and . She thinks that symptoms might be a little better than they were with her left lower extremity emerged. Her thinks they are unchanged. Her left lower back is killing her and they are working with the pain center for a solution; imaging is being considered. Both she and her reiterate that back pain is chronic and of longer duration than her left lower extremity weakness and that it was not changing around the time that her left lower extremity weakness emerged.Presenting symptomatology is reviewed from initial neurology consultation June 09, 2022:In early 2021, ~1 year ago, out of the blue without any injury or episodes that might have triggered a problem, she began noticing weakness in her left lower extremity while walking. She noticed the weakness as dragging her foot and as causing some imbalance. And reports that he occasionally sees foot drop on the left. She has had chronic unchanging back pain until her fall 2 weeks ago after which the back pain worsened. She notices that she can jiggle her right leg normally but she cannot jiggle her left leg as fast.Early on after her left lower extremity weakness emerged, she was sent to physical therapy. It did not help. She did the home exercises initially but then stopped as she did not feel they would help. A cane has been suggested and she has a cane but she has decided not to use it. She has fallen about five times, most recently about 2 weeks ago. She has not sustained any fractures. In general, there has been no worsening or improvement of the feeling of left lower extremity weakness since it began.In addition, also in early 2021, she began noticing left upper extremity weakness and pain on the inside of her left shoulder. Because of this weakness, she found it hard to open a jar? s he noticed no pain associated with opening the jaw. In addition, she found it hard to fasten her bra in the back. This was associated with pain in the inside of her left shoulder. She had an injection into her shoulder. Since then, her left shoulder pain has resolved. She has no difficulty today moving her left arm behind her back to the region of her bra and no pain in particular. She has not noticed any improvement in ability to open a jar with her left hand. Seth Downing MD [address] [place] [address] [place], [phone], [facility] 07/06/2022 13:59:45 OBGyn Episode No OBEpisode recorded.
== END 2024-08-29 14:03 | disposition home or self-care (01) ==
LOC: HO.PMC 13:46
PROVIDERS: PCP Internal Medicine; Visit Provider Anesthesiology
DX: M25.551 Pain in right hip (principal); M53.3 Sacrococcygeal disorders, not elsewhere classified; M51.369 Other intervertebral disc degeneration, lumbar region without mention of lumbar back pain or lower extremity pain; M54.59 Other low back pain; M47.816 Spondylosis without myelopathy or radiculopathy, lumbar region; M81.0 Age-related osteoporosis without current pathological fracture; S32.010A Wedge compression fracture of first lumbar vertebra, initial encounter for closed fracture; S32.050A Wedge compression fracture of fifth lumbar vertebra, initial encounter for closed fracture
CPT/HCPCS: 99213

== ENCOUNTER → 2024-08-29 13:46 | Outpatient (BNVA) | payer OTHER, SELFPAY | PROVIDERS: PCP Internal Medicine; Visit Provider Anesthesiology | DX: M25.551 Pain in right hip (principal); M53.3 Sacrococcygeal disorders, not elsewhere classified; M51.360 Other intervertebral disc degeneration, lumbar region with discogenic back pain only; M47.816 Spondylosis without myelopathy or radiculopathy, lumbar region; M81.0 Age-related osteoporosis without current pathological fracture; S32.010D Wedge compression fracture of first lumbar vertebra, subsequent encounter for fracture with routine healing; S32.050D Wedge compression fracture of fifth lumbar vertebra, subsequent encounter for fracture with routine healing | CPT/HCPCS: 99212 ==

== ENCOUNTER → 2024-09-11 07:17 | Outpatient (BNV) | payer OTHER, SELFPAY | PROVIDERS: PCP Internal Medicine; Visit Provider Radiology Diagnostic Radiology | DX: M47.817 Spondylosis without myelopathy or radiculopathy, lumbosacral region (principal); M99.63 Osseous and subluxation stenosis of intervertebral foramina of lumbar region; K86.2 Cyst of pancreas | CPT/HCPCS: 72148 ==

== ENCOUNTER 2024-09-11 07:18 | Outpatient (REF) | payer OTHER, SELFPAY ==
--- NOTE | ~2024-09-11 | MR_ITS ---
EXAMINATION: MR LUMBAR SPINE WITHOUT CONTRAST CLINICAL INFORMATION: Wedged compression fracture fifth lumbar vertebra. COMPARISON: MRI dated July 21, 2022 demonstrated compression fracture of T12 vertebra. TECHNIQUE: MRI of the lumbar spine was obtained using routine sequences without contrast. FINDINGS: Last rib-bearing vertebra labeled T12. There is bone marrow STIR signal abnormality within vertebral body of L1. There is a 20% volume loss of the vertebral body. There is no retropulsion. Old compression deformity representing 30-40% volume loss at T12 and associated hyperintense signal in all sequences likely related to prior vertebroplasty/kyphoplasty procedure. Bone marrow inhomogeneity. Grade 1 anterolisthesis L5-S1. Conus medullaris and 6 at intervertebral disc L1-2 level with normal signal. T11-12: 3 mm retropulsion from prior compression deformity without compression upon neural elements. T12-L1: No disc herniation. No neuroforamina stenosis. No compression upon neural elements. L1-2: No disc herniation. No neuroforamina stenosis. L2-3: Broad-based disc bulging. Reduced AP diameter of the thecal sac. Bilateral facet joint hypertrophy. Bilateral neuroforamina narrowing. No compression upon neural elements. L3-4: Broad-based disc bulging. Reduced AP diameter of the thecal sac. Bilateral facet joint and ligamentum flavum hypertrophy. Bilateral neuroforamina narrowing. L4-5: Broad-based disc bulging. Bilateral facet joint hypertrophy. Left ligamentum flavum hypertrophy. Encroaching of the neural elements of the thecal sac the L5 nerve roots on the lateral recesses. Bilateral neuroforamina narrowing encroaching the L4 exiting nerve root. Right hemilaminectomy. L5-S1: Broad-based disc bulging. Facet joint and ligamentum flavum hypertrophy. Reduced AP diameter of the thecal sac. Bilateral neuroforamina narrowing. There is likely encroachment of the neural elements. No prevertebral compartment hematoma, mass or fluid collection. There are least 2, less than 6 mm cystic characteristic lesions in the pancreas. Small cystic lesions in the kidneys. MR/MR lumbar spine wo con IMPRESSION: Acute to subacute superior endplate compression deformity presenting 20% volume loss at L1 without gross retropulsion or compression upon neural elements. Multilevel lumbar spondylosis, L2-3 to L5-S1 resulting in central spinal canal and bilateral neuroforamina narrowing/stenosis at L4-5 L3-4 and to a lesser extent L5-S1 levels encroaching the neural elements. Less than 6 mm cystic lesions, pancreas. Electronically signed by: Noel Arias MD 09/11/2024 09:18 AM EDT
--- OUTSIDE RECORDS SUMMARY | 2024-09-11 07:22 | XMS_ITS | Data Portability ---
Author Organization [place] [facility], Allergy Address [address] [place] [id number] Care Team Providers Care Centrifugal Screen Tender Name Role Phone EMILY JIANG Primary Care [...] this will only make her symptoms worse. [email or web address] Not available 02/01/2024 10:29:39 Plan of Treatment [...] audio gram No observ ation record ed. [email or web address] [facility] Of [address], [place], [address], 02/05/2024 21:08:24 02/06/2007/24/2023 MRI, brain , w/wo contr ast No observ ation record ed. [email or web address] Not Available 2023 11:34:38 Result Notes None recorded. Problems Name Problem SNOMED Code Status Onset Date Resolution Date Notes Provider Name and Address Organization Details Recorded Time Sensorineural hearing loss of bilateral ears [id number] Active 2023 MASOODFER LEONARDO, AUD [address] [place] [address], E [facility], [place], [address], [facility] - [facility] [place] 4 09:38:56 Dizziness and giddiness 481623507 Active 2023 MASOOD LEONARDO, [address], E [facility], [place], [address], [facility] - [facility] 4 09:39:10 Unsteady when walking 85654747 Active 2023 MARIE GALEANO MD [address] [place] [address],[place] [address], [facility] [place], [address], [facility] - [facility] 4 10:26:55 Monoparesis of lower limb 612453982 Active 2023 MARIE GALEANO MD [address] [place] [address],[place] [address], [facility] [place], [address], [facility] - [facility] 4 10:27:39 Benign paroxysmal positional vertigo 886500022 Active 2023 MARIE GALEANO MD [address] [place] [address] E [facility], [facility] [place], [address], [facility] - [facility] 4 10:27:44 Problem Notes None recorded. Procedures Surgical History Date Name Laterality Status Provider Name and Address Organization Details Recorded Time 02/01/2024 Comp Audio with Tymps - 09048 & 77443 completed MASOOD LEONARDO [facility] [address] [facility],[address], [address], [facility] - [facility] [place] 02/01/2024 09:38:49 Imaging Results None recorded. Procedure Notes None recorded. Medical Equipment None [...] SNOMED-CT Code Diagnosis ICD10 Code Diagnosis Note [id number] MARIE GALEANO MD [facility] [address] [address] 02/01/2024 09:18:07 02/01/2024 10:25:03 Sensorineural hearing loss of bilateral ears [id number] H90.3 Right Ear:Mild to severe SNHL with excellent speech discrimina tion.Type As tympanogra m.Left Ear:Mild to severe SNHL with excellent speech discrimina tion.Type A tympanogra m.Patient' s audiogram shows bilateral moderate sensorineu ral hearing loss with well maintained speech discrimina tion. There is enough hearing loss to affect day-to-day hearing performanc e. We discussed in detail the pros and cons of amplificat ion (hearing aids). We discussed the connection between untreated hearing loss and increased risk of dementia, falling and accidents. After full discussion , the patient expressed interest in learning more about amplificat ion options. Accordingl y we will set them up for a hearing aid evaluation . Patient is medically cleared for amplificat ion bilaterall y. Dizziness and giddiness [id number] R42 Unsteady when walking 22 842398 R26.89 Monoparesi s of lower limb [id number] G83.12 Benign par oxysmal positional vertigo 621383101 H81.12 Patient with episodic positional ly induced vertigo. [place] was positive for vertigo and rotary nystagmus with the head to the left. We discussed that the patient? s pattern of symptoms and physical exam findings are most consistent with benign paroxysmal positional vertigo (BPPV). The pathophysi ology of BPPV was discussed in detail. Patient was provided with a referral to [facility] for Aura maneuvers and vestibular therapy. We [...] with her overall balance function as well. [id number] JUANA MCKEON MEDINA - [address] [address] 02/28/2024 12:45:34 03/01/2024 07:25:57 Sensorineural hearing loss of bilateral ears [id number] H90.3 Health Concerns Section Related Observation LastModified by Organization Leidy ls LastModified Time None Recorded Concern Status LastModified by Organization Details LastModified Time None Recorded Advance Directives Directive None Recorded Payers Insurance Date Sequence Insurance Name Policy Number Policy Boles Covered Member ID Boles Member ID Guarantor Name 02/28/2024 1 [facility] - [facility] (POS) [id number] Kathya Mccoy [id number] Kathya Mccoy Notes Date Note Type Note [...] for assistance while ambulatory. MARIE GALEANO MD [address] [facility],[address], [address], [facility] - [facility] 02/01/2024 10:30:16 02/28/2024 text/html Patient with rep orted gradual onset SNHL here with her to discuss fitting of amplification as a first time user. Patient has seen an plant and equipment worker who has provided medical clearance for the use of hearing devices.Reviewed history of hearing loss, the impact on hearing loss on communicative ability and patient's goals for amplification. After discussing the pros and cons of various models and levels of technology, the patient was given the approximate cost for the mid level Infinio R technology.She has no ins benefit. They will discuss this and call if they have any additional questions or wish to proceed.On a side note, she has responded very well to her vestibular therapy. JUANA MCKEON [address] [facility],[address], [address], [place] [facility] 02/28/2024 13:31:59 OBGyn Episode No OBEpisode recorded.
== END 2024-09-11 07:19 | disposition home or self-care (01) ==
LOC: HO.MRI 07:18
PROVIDERS: PCP Internal Medicine; Visit Provider Anesthesiology
DX: S32.050A Wedge compression fracture of fifth lumbar vertebra, initial encounter for closed fracture (principal)
CPT/HCPCS: 72148

== ENCOUNTER 2024-10-02 14:43 | Outpatient (AMB) | payer OTHER, SELFPAY ==
--- NOTE | 2024-10-02 14:55 | MHC.OFFVIS ---
Vital Signs 10/02/24 14:56 Height 5 ft 2 in BP 122/61 Blood Pressure Location Lt brachial Position Sitting Respiration 20 Pulse 71 Pulse Source Pulse Oximeter Pulse Oximetry (%) 91 L Oxygen Delivery Method Room Air Intake Visit Reasons: Discuss MRI Results Data Processor Required: No Allergies alendronate sodium (From Fosamax) Allergy (Intermediate, Verified 10/02/24 14:55) Chest Pain HPI Comments Details: Kathya is back in my office for the follow-up after MRI of the lumbar spine. Last time patient visited me with complains on most lower back pain. She reported that pain got more severe after minor trauma. She has a history of VCF of T12 and L1. I suspected lower lumbar compression fractures. The MRI is negative for the compression fractures. The physical exam is as below. I suspect this patient is suffering from spondylosis of lumbar spine among other things. I will schedule her for diagnostic medial branch block L3, L4, dorsal ramus L5. With successful medial branch block we could do radiofrequency ablation of the medial branches versus sprint PNS stimulation. Incidental finding on the MRI she has 6 mm pancreatic cyst. It needs to be assessed by Gastroenterology. I will make appropriate referral. Prior: In the past she received kyphoplasty from me at T12 compression fracture. She recently fell on her buttocks and after that she went for MRI which demonstrated L1 compression fracture. Last time I was seeing her for diagnosis of VCF I recommended her to consider treatment for osteoporosis with primary care physician or flying ii instructor. Her primary care physician started her on alendronate the patient reported unpleasant and intolerable side effects. Unfortunately instead of switching medication her primary care physician just stopped the alendronate. Now the patient is suffering from yet another compression fracture of L1 this time. She reports severe pain in the projection of the upper lumbar spine. She reports difficulty breathing, she reports difficulty taking slow deep breath her pain is being exacerbated when she tries to do that. I will schedule this patient for kyphoplasty as soon as possible. She still has edema at L1 vertebra so we need to provide the service expeditiously. PRIOR: Patient is a pleasant 72 years old female with a history of T12 compression fracture, prior neck surgery and osteoporosis, presents today with worsening chronic low back pain for the past 8 months. She is accompanied by her . Patient reports left foot drop with walking, left sided weakness and frequent balance issues with walking. Patient uses a cane with ambulation. She reports a fall 2 weeks ago when she was getting out of her car and her left leg gave out. Patient shows healing abrasions on her right elbow and left palm due to recent fall. Reports previous cervical spine surgery, anterior approach. She has seen her neurologist Dr. Downing yesterday and he ordered the patient to undergo cervical MRI with and without IV contrast at [facility]. Her back is axial, spreads across her lower back without radiation to her lower extremities. She reports tenderness in the projections of both GTB. Patient reports limited cera. She also reports left shoulder pain that has been relieved with recent cortisone injection by her orthopedic provider. Patient reports bilateral foot pain and pain in her big toes. She has completed physical therapy and home exercise program in the past with temporary and minimal symptoms improvement. Currently she takes Tylenol with partial pain relief. She rates her pain at 5/10. [facility] Medical History Arthritis Urinary tract infection Left shoulder pain Left-sided weakness Hyperlipidemia GERD (gastroesophageal reflux disease) Depression COPD (chronic obstructive pulmonary disease) T12 compression fracture Osteoporosis Cervical spondylosis with myelopathy and radiculopathy Lumbar spondylosis Surgical History History of sleeve gastrectomy Hx of kyphoplasty H/O colonoscopy H/O: section H/O cervical spine surgery Social History Are you a primary care nurse rn to a significant other at home: No Do you presently have visiting nurse or other home services: No Alcohol intake: current Alcohol intake frequency: holidays/special occasions only Patient Tobacco Use Status: Former Tobacco user Tobacco use type: Cigarette Substance Use Type: Caffiene Review of Systems Const All systems reviewed & are unremarkable except as noted in HPI and below ENT Reports Normal hearing present Neuro Reports Normal hearing present, Denies confusion and Denies Sensory deficit (Neuro) Psych Denies confusion Physical Exam Vital Signs: Last Vital Signs Pulse 71 10/02/24 14:56 Resp 20 10/02/24 14:56 BP 122/61 10/02/24 14:56 Pulse Ox 91 L 10/02/24 14:56 Oxygen Delivery Method Room Air 10/02/24 14:56 Const General: cooperative, no acute distress, alert, awake and well groomed; No confusion Nutritional Appearance: average body habitus Orientation/consciousness: patient oriented x3 and No confusion Limitations: no limitations HEENT Head: Yes normal to inspection, Yes normocephalic, Yes atraumatic and No occipital foramen tenderness Ears: hearing grossly normal bilaterally Face and sinus: Yes normal facial exam and Yes face symmetric Mouth: moist mucous membranes Eyes General: appearance normal, both eyes and all related structures Visual Ruiz: normal visual ruiz by confrontation Pupils: Equal, round and reactive pupils present EOM: EOMs intact bilaterally Neck Other: Slightly decreased cervical ROM in all planes. Denies pain with cervical extension and flexion. Spurling compression test equivocal. Pain is unchanged by Spurling maneuver with retraction. Elvey's tension test positive on the left, with radiation of pain from neck to wrist. Lhermitte's test was negative. Diminished DTRs on the left, +2 on the right. Patient demonstrated 5/5 right and 4/5 left motor strength of bilateral upper extremities. 2 + radial pulses. Significant tightness throughout left upper trapezius as well as TTP throughout bilateral upper trapezius muscles. No paravertebral tenderness over facet joints bilaterally. Neck: Yes normal visual inspection, Yes no lymphadenopathy, Yes no meningeal signs, Yes supple, No anterior neck swelling and Yes no JVD Resp Effort & Inspection: normal respiratory effort, able to speak in complete sentences, no audible wheezes, no cough and symmetric chest movement Cardio Jugular venous distension: no JVD Bruits: no carotid bruits Peripheral pulses: radial pulses present, posterior tibial pulses present and dorsalis pedis present GI Inspection: Yes normal to inspection, No Abdominal wall edema and Yes obesity Palpation (GI): Soft to palpation and nontender General: Yes no CVA tenderness Back/Spine/Pelvis Other: Patient is able to walk and stand on heels and tip toes with mild difficulty on the left. Antalgic gait with limping on the right. Can flex forward to 70-75 degrees and extend to 5-10 degrees before experiencing lumbar pain. Demonstrates 5/5 strength of quadriceps bilaterally as well as flexion/dorsiflexion of bilateral feet against resistance. 2+ pedal pulses bilaterally. Straight leg rise with dorsiflexion negative bilaterally. Diminished patellar and achilles reflexes bilaterally. Facet loading test negative bilaterally Severe tenderness on palpation in the projection of the lower lumbar spine. Tenderness on percussion in the projection of the lower lumbar spine. Back: no CVA tenderness Cervical Spine: normal cervical lordosis, loss of normal cervical lordosis, cervical muscular tenderness, No pain with cervical ROM, Cervical spine scars present (anterior), No Cervical spine tenderness and No step off deformity Skin General skin exam: no rashes or lesions noted Trauma: abrasion (healing abrasions right elbow and left palm r/t recent fall) Neuro General: patient oriented x3, tone normal, moves all extremities, no meningeal signs, CN's II-XI intact bilaterally and No confusion Cranial nerves: Yes Equal, round and reactive pupils present, Yes Bilaterally intact EOM present and Yes Normal hearing present Cognition (Neuro): normal cognition Gait exam (Neuro): Antalgic gait present, Shuffling gait present (on the left) and No Assistive device used Motor exam (neuro): 5/5 motor strength present throughout, no tremor noted, Normal motor muscle tone present throughout and Motor abnormalities not present Sensory Exam: No Sensory deficit (Neuro) Coordination: Romberg test positive Extrem General: Yes capillary refill normal, Yes no clubbing, cyanosis or edema and Yes no calf tenderness Psych Appearance: grossly normal and well kempt Mental Status: mental status grossly normal Speech and movement: Normal speech and movement present and Clear speech present Affect: normal affect Attitude: cooperative Thought process: Normal thought process present Thought content: Normal thought content present Insight: Good insight present (Psych) Judgement: Good judgement present (Psych) Results Reviewed Results Reviewed: MR LUMBAR SPINE WITHOUT CONTRAST CLINICAL INFORMATION: Wedged compression fracture fifth lumbar vertebra. COMPARISON: MRI dated July 21, 2022 demonstrated compression fracture of T12 vertebra. TECHNIQUE: MRI of the lumbar spine was obtained using routine sequences without contrast. FINDINGS: Last rib-bearing vertebra labeled T12. There is bone marrow STIR signal abnormality within vertebral body of L1. There is a 20% volume loss of the vertebral body. There is no retropulsion. Old compression deformity representing 30-40% volume loss at T12 and associated hyperintense signal in all sequences likely related to prior vertebroplasty/kyphoplasty procedure. Bone marrow inhomogeneity. Grade 1 anterolisthesis L5-S1. Conus medullaris and 6 at intervertebral disc L1-2 level with normal signal. T11-12: 3 mm retropulsion from prior compression deformity without compression upon neural elements. T12-L1: No disc herniation. No neuroforamina stenosis. No compression upon neural elements. L1-2: No disc herniation. No neuroforamina stenosis. L2-3: Broad-based disc bulging. Reduced AP diameter of the thecal sac. Bilateral facet joint hypertrophy. Bilateral neuroforamina narrowing. No compression upon neural elements. L3-4: Broad-based disc bulging. Reduced AP diameter of the thecal sac. Bilateral facet joint and ligamentum flavum hypertrophy. Bilateral neuroforamina narrowing. L4-5: Broad-based disc bulging. Bilateral facet joint hypertrophy. Left ligamentum flavum hypertrophy. Encroaching of the neural elements of the thecal sac the L5 nerve roots on the lateral recesses. Bilateral neuroforamina narrowing encroaching the L4 exiting nerve root. Right hemilaminectomy. L5-S1: Broad-based disc bulging. Facet joint and ligamentum flavum hypertrophy. Reduced AP diameter of the thecal sac. Bilateral neuroforamina narrowing. There is likely encroachment of the neural elements. No prevertebral compartment hematoma, mass or fluid collection. There are least 2, less than 6 mm cystic characteristic lesions in the pancreas. Small cystic lesions in the kidneys. MR/MR lumbar spine wo con IMPRESSION: Acute to subacute superior endplate compression deformity presenting 20% volume loss at L1 without gross retropulsion or compression upon neural elements. Multilevel lumbar spondylosis, L2-3 to L5-S1 resulting in central spinal canal and bilateral neuroforamina narrowing/stenosis at L4-5 L3-4 and to a lesser extent L5-S1 levels encroaching the neural elements. Less than 6 mm cystic lesions, pancreas. Assessment & Plan Assessment & Plan (1) Right hip pain: Code(s): M25.551 - Pain in right hip Category: Medical (2) Sacroiliac joint dysfunction of right side: Code(s): M53.3 - Sacrococcygeal disorders, not elsewhere classified Category: Medical (3) Lumbar degenerative disc disease: Code(s): M51.36 - Other intervertebral disc degeneration, lumbar region Category: Medical (4) Discogenic lumbar pain: Code(s): M54.59 - Other low back pain Category: Medical (5) Lumbar spondylosis: Code(s): M47.816 - Spondylosis without myelopathy or radiculopathy, lumbar region Category: Medical (6) Osteoporosis: Code(s): M81.0 - Age-related osteoporosis without current pathological fracture Category: Medical (7) Compression fracture of L1 lumbar vertebra: Code(s): S32.010A - Wedge compression fracture of first lumbar vertebra, initial encounter for closed fracture Category: Medical (8) Pancreatic cyst: Code(s): K86.2 - Cyst of pancreas Category: Medical (9) Spondylosis of lumbar region without myelopathy or radiculopathy: Code(s): M47.816 - Spondylosis without myelopathy or radiculopathy, lumbar region Category: Medical Plan History of T12 and L1 kyphoplasty with very good results in the past. She reported now severe pain in the projection of the most lower portion of the lumbar spine. She reports that before that pain started she experienced minor trauma. I suspected that she has yet another compression fracture of the lumbar spine. However the MRI did not demonstrate any compression fractures. However it demonstrated spondylosis of the most lower lumbar spine with hypertrophy of the ligamentum flavum and facet joints. To finish diagnosing this pain generators I offered the patient bilateral medial branch block L3, L4, dorsal ramus L5. Patient agreed to go for the procedure. After patient left it was noticed radiologist's incidental finding of pancreatic cyst 6 mm I will refer this patient to gastroenterology. I will contact the patient and explain the need for follow-up for this finding. Orders: Referrals Gastroenterology Referral K86.2 - Cyst of pancreas Patient Instructions: I here by testify that I spent 55 minutes in conversation with this patient as well as evaluating her diagnostic images, evaluating diagnostic records making appropriate referrals planning her care and organizing this note. Coding Level of Care Code Est Pt Level 5 (08845) Diagnoses Right hip pain M25.551 Sacroiliac joint dysfunction of right side M53.3 Lumbar degenerative disc disease M51.36 Discogenic lumbar pain M54.59 Lumbar spondylosis M47.816 Osteoporosis M81.0 Compression fracture of L1 lumbar vertebra S32.010A Pancreatic cyst K86.2 Spondylosis of lumbar region without myelopathy or radiculopathy M47.816
[2024-10-02 14:56] VITALS: BP 122/61; PULSE 71; RESP 20; O2SAT 91
--- OUTSIDE RECORDS SUMMARY | 2024-10-02 16:56 | XMS_ITS | Data Portability ---
Author Organization [place] [facility], Allergy Address [address] [place] [address] Care Team Providers Care Wildlife Conservation Officer Name Role Phone EMILY JIANG Primary Care [...] this will only make her symptoms worse. [email or web address] Not available 02/01/2024 10:29:39 Plan of Treatment [...] audio gram No observ ation record ed. [facility] Of [address], [place], [address], 02/05/2024 21:08:24 02/06/2007/24/2023 MRI, brain , w/wo contr ast No observ ation record ed. [email or web address] Not Available 2023 11:34:38 Result Notes None recorded. Problems Name Problem SNOMED Code Status Onset Date Resolution Date Notes Provider Name and Address Organization Details Recorded Time Sensorineural hearing loss of bilateral ears 419347552 Active 2023 MASOODFER LEONARDO, AUD [address] [place] [address], E [facility], [place], [address], [facility] - [facility] [place] 4 09:38:56 Dizziness and giddiness 257631451 Active 2023 MASOOD LEONARDO, [address], [address] [facility], [place], [address], [facility] - [facility] 4 09:39:10 Unsteady when walking 96335664 Active 2023 MARIE GALEANO MD [address] [place] [address],[place] [address], [place] [place], [address], [facility] - [facility] 4 10:26:55 Monoparesis of lower limb 303818802 Active 2023 MARIE GALEANO MD [address] [place] [address],[place] [address], [place], [address], [facility] - [facility] 4 10:27:39 Benign paroxysmal positional vertigo 023195251 Active 2023 MARIE GALEANO MD [address] [place] [address] [facility], [place], [address], [facility] - [facility] 4 10:27:44 Problem Notes None recorded. Procedures Surgical History Date Name Laterality Status Provider Name and Address Organization Details Recorded Time 02/01/2024 Comp Audio with Tymps - 09895 & 36370 completed MASOOD LEONARDO [facility],[address], [address], [facility] - [facility] [place] 02/01/2024 09:38:49 Imaging Results None recorded. Procedure [...] SNOMED-CT Code Diagnosis ICD10 Code Diagnosis Note [id number] MARIE GALEANO MD [facility] [address] [address] 02/01/2024 09:18:07 02/01/2024 10:25:03 Sensorineural hearing loss of bilateral ears 373682426 H90.3 Right Ear:Mild to severe SNHL with [...] amplificat ion bilaterall y. Dizziness and giddiness 275766383 R42 Unsteady when walking 22 512165 R26.89 Monoparesi s of lower limb 696573297 G83.12 Benign par oxysmal positional vertigo 099824321 H81.12 Patient with episodic positional ly induced vertigo. Ray-Hallpi ke was positive for vertigo and rotary nystagmus with the head to the left. We discussed that the patient s pattern of symptoms and physical exam findings are most consistent with benign paroxysmal positional vertigo (BPPV). The pathophysi ology of BPPV was discussed in detail. Patient was provided with a referral to [facility] for Aura maneuvers and vestibular therapy. We [...] with her overall balance function as well. [id number] [address] MC[address]ON [address] [address] 02/28/2024 12:45:34 03/01/2024 07:25:57 Sensorineural hearing loss of bilateral ears 678985751 H90.3 Health Concerns Section Related Observation LastModified by Organization Leidy pickett LastModified Time None Recorded Concern Status LastModified by Organization Details LastModified Time None Recorded Advance Directives Directive None Recorded Payers Insurance Date Sequence Insurance Name Policy Number Policy Boles Covered Member ID Boles Member ID Guarantor Name 02/28/2024 1 [facility] - [facility] (POS) [id number] Kathya Mccoy [id number] Kathya Mccoy Notes Date Note Type Note [...] assistance while ambulatory. MARIE GALEANO MD [address] [facility],[address], [address], [facility] - [facility] 02/01/2024 10:30:16 02/28/2024 text/html Patient with rep orted gradual onset SNHL here with her to discuss fitting of amplification as a first time user. Patient has seen an commercial real estate broker who has provided medical clearance for the [...] to her vestibular therapy. JUANA MCKEON [address] [facility],[address], [address], [place] - [facility] 02/28/2024 13:31:59 OBGyn Episode No OBEpisode recorded.
== END 2024-10-02 15:32 | disposition home or self-care (01) ==
LOC: HO.PMC 14:44
PROVIDERS: PCP Internal Medicine; Visit Provider Anesthesiology
DX: M25.551 Pain in right hip (principal); M53.3 Sacrococcygeal disorders, not elsewhere classified; M51.369 Other intervertebral disc degeneration, lumbar region without mention of lumbar back pain or lower extremity pain; M54.59 Other low back pain; M47.816 Spondylosis without myelopathy or radiculopathy, lumbar region; M81.0 Age-related osteoporosis without current pathological fracture; S32.010A Wedge compression fracture of first lumbar vertebra, initial encounter for closed fracture; K86.2 Cyst of pancreas
CPT/HCPCS: 99215

== ENCOUNTER → 2024-10-02 14:43 | Outpatient (BNVA) | payer OTHER, SELFPAY | PROVIDERS: PCP Internal Medicine; Visit Provider Anesthesiology | DX: M47.816 Spondylosis without myelopathy or radiculopathy, lumbar region (principal); M54.59 Other low back pain; M51.369 Other intervertebral disc degeneration, lumbar region without mention of lumbar back pain or lower extremity pain; M25.551 Pain in right hip; M53.3 Sacrococcygeal disorders, not elsewhere classified; M81.0 Age-related osteoporosis without current pathological fracture; K86.2 Cyst of pancreas; S32.010A Wedge compression fracture of first lumbar vertebra, initial encounter for closed fracture; X58.XXXA Exposure to other specified factors, initial encounter; Y93.9 Activity, unspecified; Y92.9 Unspecified place or not applicable; Y99.9 Unspecified external cause status | CPT/HCPCS: 99212 ==

== ENCOUNTER 2024-12-17 06:18 | Outpatient (REF) | payer OTHER, SELFPAY ==
--- NOTE | ~2024-12-17 | FL_ITS ---
EXAMINATION: XR FLUOROSCOPY WITH IMAGES CLINICAL INFORMATION: Lumbar pain management COMPARISON: MR lumbar 09/03/2024 TECHNIQUE: Fluoroscopy provided to: Dr. Olsen Fluoroscopy time: 0.8 minutes DAP: 0.145 mGycm2 Images: 12 FINDINGS: 12 fluoroscopic spot images of the lumbar spine taken during lumbar pain management injection. Please refer to the full procedural report for details. FL/FL guidance in treatment room IMPRESSION: Fluoroscopic guidance. Electronically signed by: Berry Bird MD 12/18/2024 12:04 PM EDT
--- OUTSIDE RECORDS SUMMARY | 2024-12-17 06:24 | XMS_ITS | Encounter Summary ---
Author Organization [facility] [place] [address] Care Team Providers Care Warehousing Technician Name Role Phone Johan Aldridge MD Primary Care Provider [phone] Encounter Details Date Type Department Care Team ([facility] st Contact Info) Description 11/11/2024 Telephone Adult Medicine [address] [phone] Beth Slaughter LPN Social History Tobacco Use Types Packs/Day Years Used Date Smoking Tobacco: Former Cigarettes Q uit: 04/17/2007 Smokeless Tobacco: Never Alcohol Use Standard Drinks/Week Comments Yes 0 (1 standard drink = 0.6 oz pur e alcohol) Housing Instability Answer Date Recorde d Are you worried that in the next 2 months you may not have stable housing? No 09/25/2024 Food Access & Nutrition Answer Date Rec orded Do you have access to a vari ety of food including fruits and vegetables? Yes 09/25/2024 Access to Healthcare Answer Date Record ed Within the last 3 months, ho w many times did you visit the emergency department for your medical care? 0 09/25/2024 Health Literacy Answer Date Recorded How often do you need to hav e someone help you when you read instructions, pamphlets, or other written material from your doctor or pharmacy? Sometimes 09/25/2024 Caregiver: How often do you need to have someone help you when you read instructions, pamphlets, or other written material from your doctor or pharmacy? Not on file 09/25/2024 Financial Risk Answer Date Recorded How hard is it for you to pa y for the very basics like food, housing, medical care, and air conditioning / heating? Not very hard 09/25/2024 Transportation Answer Date Recorded Has the lack of transportati on kept you from meetings, work, or from getting things needed for daily living? No Has the lack of transportati on kept you from medical appointments or from getting medications? No 09/25/2024 Social Isolation Answer Date Recorded How often do you feel lonely or isolated from th ose around you? Never 09/25/2024 Food Risk Answer Date Recorded Within the past 12 months we worried whether our food would run out before we got money to buy more. Never true 09/25/2024 Within the past 12 months th e food we bought just didn't last and we didn't have money to get more. Never true 09/25/2024 Dependent Care Answer Date Recorded Do you need help finding or paying for care for your loved ones. For example, child development consultant or elderly care for an older adult? No 09/25/2024 Education Answer Date Recorded Do you think completing more education or training, like finishing a GED, going to college, or learning a trade, would be helpful for you? N/A 09/25/2024 Employment and Income Answer Date Recor ded During the last four weeks, have you been actively looking for work? No 09/25/2024 Living Situation Answer Date Recorded What is your living situation? 0 09/25/2024 Comments No Sex and Gender Information Value Date Recorded Sex Assigned at Female 04/02/2024 12:59 PM EST Legal Sex Female 9:50 AM EST Gender Identity Female 04/02/2024 12:59 PM EST Sexual Orientation Straight 04/02/2024 1: 10 PM EST documented as of this encounter Plan of Treatment Upcoming Encounters Date Type Department Care Team (Late st Contact Info) Description 01/01/2025 10:40 AM EDT Appointment Radiology Department [address] [address] 01/28/2025 8:40 AM EDT Consult Gastroenterology - [place] [address] [facility] [address] [place] [address] Delicia Negron NP [address] [place] [address] 04/22/2025 9:15 AM EST Office Visit Bariatric Surgery - [place] 175 [facility] [address] [place] [phone] Shahram Lopez MD [address] [place] [address] 06/27/2025 11:30 AM EDT Office Visit Adult Medicine [place] - [place] [address] [place] [address] Johan Aldridge MD [address] [place] [address] 12/15/2025 8:30 AM EDT Office Visit Urogynecology [address] [phone] Phyllis Mirza MD [address] [place] [address] documented as of this encounter Visit Diagnoses Not on filedocumented in this encounter Additional Health Concerns Assessment Noted Time PHQ-9 Depression Total Score: 5 09/26/19 25 6:53 PM EDT documented as of this encounter Care Teams Warehousing Technician Relationship Specialty Start Date End Date Johan Aldridge MD [address] [place] [address] PCP - General Internal Medicine 04/02/24 documented as of this encounter
--- OUTSIDE RECORDS SUMMARY | 2024-12-17 06:24 | XMS_ITS ---
Author Name [facility] Organization Unknown History of Medication Use Medication Directions Dispensed Refills Start Date End Date Stat us rosuvastatin (CRESTOR) 10 mg tablet Take 1 tablet (10 mg total) by mouth 1 (one) time each day. 10/15/2024 active semaglutide (Wegovy) 1.7 mg/0.75 mL injection pen Inject 1.7 mg under the skin every 7 (seven) days for 8 doses. 10/15/2024 active rOPINIRole (REQUIP) 0.25 mg tablet Take 2 tablets (0.5 mg total) by mouth 3 (three) times a day. 04/03/2024 active oxyCODONE-acetaminoph en (PERCOCET) 5-325 mg per tablet Take 1-2 Tablets by mouth every 4 hours as needed for Pain. 01/08/2024 active predniSONE (DELTASONE) 10 mg tablet Take 3 tabs for 3 days, take 2 tabs for 3 days, take 1 tab for 3 days 01/02/2024 active FLUoxetine (PROzac) 10 mg capsule 06/24/2022 active albuterol HFA (PROAIR HFA ; PROVENTIL HFA ; VENTOLIN HFA) 90 mcg/actuation inhaler Inhale 2 Puffs into the lungs every 4 hours as needed for Cough or Wheezing. 04/01/2021 active omeprazole (PriLOSEC) [address] capsule Take 1 capsule by mouth daily. 04/01/2021 active traZODone (DESYREL) 50 mg tablet Take 1/2 tab-2 tab qhs 03/18/2020 active multivit-min/ferrous fumarate (MULTI VITAMIN ORAL) Take 1 Tab by mouth daily. active Allergies Allergen Reaction Severity Comment Documented Date Source Statu s ALENDRONATE SODIUM Fosamax,Esophage al irritation 01/02/2024 [facility] active NSAIDS (NON-STEROIDAL ANTI-INFLAMMATORY DRUG) Severe gastritis 10/25/2013 [facility] active Problems Problem Status Onset Date Problem Type Date of Resolution Source Enchondroma active 2020-12-16 ProblemAct [facility] Nuclear sclerosis active 2013-02-13 ProblemAct [facility] Prediabetes active 2023-07-04 ProblemAct [facility] Tubular adenoma active 2023-07-[address] [facility] Atelectasis active 2018-04-23 ProblemAct [facility] Pulmonary nodules active 2018-04-23 ProblemAct [facility] Chronic obstructive pulmonary disease ([facility] V24, [facility] V28) active 2018-04-23 ProblemAct [facility] Encounter for screening mammogram for breast cancer active EncounterDiagnosisAct [facility] Arthritis of knee active 2024-07-04 ProblemAct [facility] Heartburn active 2024-07-04 ProblemAct [facility] Vitamin D deficiency active 2021-07-22 ProblemAct [facility] Stress incontinence in female active 2024-07-04 ProblemAct [facility] Severe obesity (BMI 35.0-39.9) with comorbidity ([facility] V24, [facility] V28) active 2023-07-04 ProblemAct [facility] Cortical cataract of both eyes active 2013-02-13 ProblemAct [facility] Depression active 2024-07-04 ProblemAct [facility] Amblyopia active 2013-02-13 ProblemAct [facility] High cholesterol active 2024-03-26 ProblemAct C T_THSFRAN Obesity (BMI 30-39.9) active 2024-07-04 ProblemAct [facility] Overactive bladder active EncounterDiagnosisAct [facility] Spondylosis active 2024-07-04 ProblemAct [facility] Osteopenia active 2021-03-03 ProblemAct [facility] Moderate single current episode of major depressive disorder ([facility] V24, [facility] V28) active 2016-02-10 ProblemAct [facility] Immunizations Vaccine Date Source Lot Number Status COVID-19 (cheerapp/ComirnatNubimetrics) 12yo and older 01/05/2024 [facility] [id number] completed Influenza trivalent, 0.5mL ( Fluad) 65yo and older 01/05/2024 [facility] [id number] completed Influenza trivalent, 0.5mL ( Fluad) 65yo and older 12/20/2022 [facility] [id number] completed Influenza trivalent, 0.5mL ( Fluad) 65yo and older 01/09/2022 [facility] [id number] completed Zoster recombinant (Shingrix ) 19yo and older 02/24/2021 [facility] [id number] completed Moderna SARS-CoV-2 COVID-19, mRNA, LNP-S, preservative free 02/22/2021 [facility] completed Influenza trivalent, 0.5mL ( Fluad) 65yo and older 12/05/2020 [facility] [id number] completed Zoster recombinant (Shingrix ) 19yo and older 12/05/2020 [facility] [id number] completed Influenza trivalent, 0.5mL ( Fluad) 65yo and older 12/16/2019 [facility] [id number] completed Influenza trivalent, 0.5mL ( Fluad) 65yo and older 04/15/2019 [facility] [id number] completed Influenza trivalent, 0.5mL ( Fluad) 65yo and older 02/06/2018 [facility] [id number] completed Influenza Quadravalent, MDCK , 0.5ml, with preservative (Flucelvax) 6mo and older 04/13/2017 [facility] [id number] completed Pneumococcal polysaccharide 23 valent (Pneumovax 23) 2yo and older 04/13/2017 [facility] [id number] com pleted Pneumococcal conjugate 13 va lent (Prevnar 13, PCV13) 2mo and older 09/18/2014 [facility] [id number] complet ed Zoster Live 09/24/2013 [facility] [id number] completed Tdap Tetanus diptheria acell ular pertussis (Boostrix; Adacel) 7yo and older 09/20/2013 [facility] [id number] completed Influenza trivalent, with pr eservative (Fluzone; Afluria) 6mo and older 12/21/2010 [facility] [id number] completed
--- OUTSIDE RECORDS SUMMARY | 2024-12-17 06:24 | XMS_ITS | Patient Health Record ---
Author Organization [facility] Address [address] [place] [address] Care Team Providers Care Psychology Clinician Name Role Phone MATILDE TORO Primary Care Provider Reason For Referral No Information Medications Medication SIG (Take, Route, Frequency, Duration) Notes Start Date End Date Status flovent HFA Active ProAir HFA Active Zoloft Active Crestor Active Mucinex Active Problems Problem Type SNOMED Code ICD Code Onset Dates Problem Status W/U Status Risk Notes Problem Cough (13754508) Cough (R05) Active confirmed Problem Wheezing (91603077) Wheezing (R06.2) Active confirmed Problem Nasal congestion (27836217) Nasal congestion (R09.81) Active confirmed Problem Sore throat (818813627) Sore throat (J02.9) Active confirmed Problem Hyperlipidaemia (40963218) Hyperlipidemia, unspecified hyperlipidemia type (E78.5) Active confirmed Problem Depressive disorder (disorder) (58681633) Depression, unspecified depression type (F32.9) Active confirmed Problem Upper respiratory infection (25464713) Upper respiratory tract infection, unspecified type (J06.9) Active confirmed Problem COPD - Chronic obstructive pulmonary disease (63667156) Chronic obstructive pulmonary disease, unspecified COPD type (J44.9) Active confirmed Plan Of Treatment No Information Insurance Providers Payer Name Payer Address Payer Phone Subscriber Number Group Number Insured Name Patient Relationship to Insured Coverage Start Date Coverage End Date [facility] [address] [place] [phone] [id number] [employer] [place] Self - patient is the insured Medical (General) History Medical History History ICD Code Depression, unspecified depression type F32.9 Hyperlipidemia, unspecified hyperlipidem ia type E78.5 Chronic obstructive pulmonary disease, u nspecified COPD type J44.9 Surgical History Surgery Date(Month/Year) Cearean section neck surgery
--- OUTSIDE RECORDS SUMMARY | 2024-12-17 06:24 | XMS_ITS | Encounter Summary ---
Author Organization [facility] [place] [address] Care Team Providers Care Dental Director Name Role Phone Johan Aldridge MD Primary Care Provider [phone] Reason for Visit * Reason Onset Date Comments faxed order 11/18/2024 [facility] physical DOC ID [id number] Encounter Details Date Type Department Care Team (Late st Contact Info) Description 11/18/2024 Telephone Adult Medicine [address] [phone] Johan Aldridge MD [address] [place] [address] Social History Tobacco Use Types Packs/Day Years [...] for your loved ones. For example, child and adolescent therapist or elderly care for an older adult? [...] PM EST documented as of this encounter Progress Notes * Padmini Joaquin - 11/18/2024 3:52 PM EDT [facility] physical DOC ID [id number] received please sign and fax to [phone] documented in this encounter Plan of Treatment Upcoming Encounters Date Type Department Care Team (Late st Contact Info) Description 01/01/2025 10:40 AM EDT Appointment Radiology Department - [address] [phone] 01/28/2025 8:40 AM EDT Consult Gastroenterology - [place] 175 [facility] 175 [facility] [address] [place] [address] Delicia Negron NP [address] [place], [place] 04/22/2025 9:15 AM EST Office Visit Bariatric Surgery - [place] 175 [facility] [address] [place] [phone] Shahram Lopez MD [address] [place], [place] 06/27/2025 11:30 AM EDT Office Visit Adult Medicine South - [address] [phone] Johan Aldridge MD [address] [place] [address] 12/15/2025 8:30 AM EDT Office Visit Urogynecology - [address] [phone] Phyllis Mirza MD [address] [place] [address] documented as of this encounter Visit Diagnoses Not on filedocumented in this encounter Additional Health Concerns Assessment Noted Time PHQ-9 Depression Total Score: 5 09/26/19 25 6:53 PM EDT documented as of this encounter Care Teams Dental Director Relationship Specialty Start Date End Date Johan Aldridge MD [address] [place] [phone] PCP - General Internal Medicine 04/02/24 documented as of this encounter
--- OUTSIDE RECORDS SUMMARY | 2024-12-17 06:24 | XMS_ITS | Clinical Summary ---
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 04/01/20 21 Active FLUoxetine (PROzac) 10 mg capsule 06/25/19 23 Active multivit-min/fe rrous fumarate (MULTI VITAMIN ORAL) Take 1 Tab by mouth daily. Active omeprazole (PriLOSEC) [address] capsule Take 1 capsule by mouth daily. 04/01/20 21 Active oxyCODONE-aceta minophen (PERCOCET) 5-325 mg per tablet Take 1-2 Tablets by mouth every 4 hours as needed for Pain. 01/08/20 24 Active predniSONE (DELTASONE) 10 mg tablet Take 3 tabs for 3 days, take 2 tabs for 3 days, take 1 tab for 3 days 01/02/20 24 Active traZODone (DESYREL) 50 mg tablet Take 1/2 tab-2 tab qhs 03/18/20 Active rOPINIRole (REQUIP) 0.25 mg tablet Take 2 tablets (0.5 mg total) by mouth 3 (three) times a day. 04/03/20 24 Active rosuvastatin (CRESTOR) 10 mg tablet Take 1 tablet (10 mg total) by mouth 1 (one) time each day. 90 tablet 1 10/16/19 25 Active Trelegy Ellipta 100-62.5-25 mcg inhaler Inhale 1 puff (100 mcg total) by mouth 1 (one) time each day. 180 each 3 12/13/19 25 Active trospium (SANCTURA) 20 mg tablet Take 1 tablet (20 mg total) by mouth 2 (two) times a day. 180 each 3 12/11/19 25 Active Trelegy Ellipta 100-62.5-25 mcg inhaler Inhale 1 puff (100 mcg total) by mouth 1 (one) time each day. 180 each 3 12/11/19 25 Active semaglutide (Wegovy) 2.4 mg/0.75 mL injection penIndications: Class 1 obesity due to excess calories with body mass index (BMI) of 33.0 to 33.9 in adult, unspecified whether serious comorbidity present Inject 2.4 mg under the skin every 7 (seven) days. 9 mL 12/12/19 25 025 Active Trelegy Ellipta 100-62.5-25 mcg inhaler INHALE 1 PUFF BY MOUTH DAILY 180 each 3 09/03/19 25 025 Discontinued(Re order) semaglutide (Wegovy) 1.7 mg/0.75 mL injection penIndications: Class 1 obesity due to excess calories with body mass index (BMI) of 33.0 to 33.9 in adult, unspecified whether serious comorbidity present Inject 1.7 mg under the skin every 7 (seven) days for 8 doses. 3 mL 1 10/16/19 25 025 Discontinued trospium (SANCTURA) 20 mg tablet Take 1 tablet (20 mg total) by mouth 2 (two) times a day. 180 each 11/07/19 25 025 Discontinued(Re order) semaglutide (Wegovy) 2.4 mg/0.75 mL injection penIndications: Class 1 obesity due to excess calories with body mass index (BMI) of 33.0 to 33.9 in adult, unspecified whether serious comorbidity present Inject 2.4 mg under the skin every 7 (seven) days. 3 mL 5 12/10/19 25 025 Discontinued Active Problems Problem Noted Date Diagnosed Date Spondylosis 07/04/2024 Arthritis of knee 07/04/2024 Depression 07/04/2024 Heartburn 07/04/2024 Obesity (BMI 30-39.9) 07/04/2024 Stress incontinence in female 07/04/2024 High cholesterol 03/26/2024 Prediabetes 07/04/2023 Severe obesity (BMI 35.0-39. 9) with comorbidity ([facility] V24, [facility] V28) 07/04/2023 Overview (03/26/2024): s/p gastric sleeve (June 2017) Tubular adenoma 07/04/2023 Vitamin D deficiency 07/22/2021 Osteopenia 03/03/2021 Overview (03/26/2024): Bone Density 02/2021. Enchondroma 12/16/2020 Overview (03/26/2024): MRI Left Shoulder: 12/15/20: Repeat plain image 6 mth. Ordered. Atelectasis 04/23/2018 Chronic obstructive pulmonar y disease ([facility] V24, [facility] V28) 04/23/2018 Pulmonary nodules 04/23/2018 Moderate single current epis ode of major depressive disorder ([facility] V24, [facility] V28) 02/10/2016 Amblyopia 02/13/2013 Cortical cataract of both eyes 02/13/2013 Nuclear sclerosis 02/13/2013 Encounters Date Type Department Care Team Description 12/10/2024 11:00 AM EDT Office Visit Adult Medicine [address] [phone] Johan Aldridge MD High cholesterol (Primary Dx); Encounter for long-term (current) use of medications; Other fatigue; Chronic obstructive pulmonary disease, unspecified COPD type ([facility] V24, [facility] V28); Gait abnormality; Left foot drop; Obesity due to excess calories, unspecified class, unspecified whether serious comorbidity present 12/10/2024 8:45 AM EDT Office Visit Urogynecology [address] [phone] Phyllis Mirza MD Urge incontinence (Primary Dx); Urinary urgency; Detrusor overactivity; BRYCE (stress urinary incontinence, female); Overactive bladder 12/06/2024 Telephone Urogynecology [address] [place] [address] Phyllis Mirza MD 11/18/[address] [phone] Johan Aldridge MD 11/11/2024 Telephone Adult [address] [phone] Beth Slaughter LPN 10/29/2024 1:00 PM EDT Office Visit [address] [phone] Johan Aldridge MD Pancreatic lesion (Primary Dx); Compression fracture of body of thoracic vertebra ([facility] V24, [facility] V28) 10/15/2024 8:15 AM EDT Office Visit Bariatric Surgery [address] [place] [phone] Shahram Lopez MD Class 1 obesity due to excess calories with body mass index (BMI) of 33.0 to 33.9 in adult, unspecified whether serious comorbidity present (Primary Dx); Obesity 10/07/[address] [phone] Johan Aldridge MD 10/02/2024 5:00 PM EDT Office Visit Adult [address] [place] [address] Salma Lemons, PATTERN FINISHER Left foot drop (Primary Dx) from Last 3 Months Immunizations [...] five yrs COLONOSCOPY W/ BIOPSIES 06/17/16 PROCEDURE: CT COLONOSCOPY W/BIOPSY SINGLE/MULTIPLE; COMMENT: adenoma; repeat in 5 yrs GASTRIC BYPASS 06/23/2017 PROCEDURE: CT GASTRIC RSTCV W/BYP W/SM INT RCNSTJ LIMIT ABSRPJ Medical History Medical History Date Comments COPD (chronic obstructive pu lmonary disease) (CMS/HCC V24, CMS/HCC V28) DX:COPD (chronic o bstructive pulmonary disease) (HCC) High cholesterol DX:High cholest geovani Bronchitis, not [...] your loved ones. For example, child and youth program assistant or elderly care for an older adult? [...] Sign Reading Time Taken Comments Blood Pressure 108/58 12/10/2024 10:52 AM EDT Pulse 94 12/10/2024 10:52 AM EDT Temperature 36.5 C (97.7 F) 12/10/2024 10:52 AM EDT Respiratory Rate 16 12/10/2024 10:52 AM EDT Oxygen Saturation 95% 12/10/2024 10:52 AM EDT Inhaled Oxygen Concentration - - Weight 71.7 kg (158 lb) 12/10/2024 10:52 AM EDT Height 149.9 cm (4' 11 ) 12/10/2024 10:52 AM EDT Body Mass Index 31.91 12/10/2024 10:52 AM EDT Plan of Treatment Upcoming Encounters Date Type Department Care Team (Late st Contact Info) Description 01/01/2025 10:40 AM EDT Appointment Radiology Department - [place] [phone] 01/28/2025 8:40 AM EDT Consult Gastroenterology - [place] [facility] [address] [facility] [address] [place] [phone] Delicia Negron NP [address] [place] [address] 04/22/2025 9:15 AM EST Office Visit Bariatric Surgery - [place] [address] [facility] [address] [place] [phone] Shahram Lopez MD [address] [place] [address] 06/27/2025 11:30 AM EDT Office Visit Adult Medicine [place] - [address] [phone] Johan Aldridge MD [address] [place], [place] 12/15/2025 8:30 AM EDT Office Visit Urogynecology - [address] [phone] Phyllis Mirza MD [address] [place] [address] Health Maintenance Due Date Last Done Comments DTaP,Tdap,and Td Vaccines (2 - Td or Tdap) 09/21/2023 09/20/2013 COVID-19 Vaccine ( season) 2024 01/05/2024, 02/19/2023, 11/01/2021, Additional history exists Influenza Vaccine (#1) 2024 , 12/20/2022, 01/09/2022, Additional history exists Social Influencers of Health Screening 09/25/2025 09/25/2024 Falls Risk Assessment 10/02/2025 10/02/2024 Breast Cancer Screening 12/12/2025 12/13/19 24, 12/13/2023, 07/23/2021, Additional history exists Colorectal Cancer Screening: Colonoscopy 10/08/2028 10/09/2023 Cholesterol Screening (Lipid Panel) 12/10/2029 12/10/2024, 01/08/2024, 01/08/2024 Osteoporosis Screening (Bone Density Screening) 04/02/2034 04/02/2024, 03/01/2021 Hepatitis C Screening Completed 09/18/2014 Pneumococcal Vaccine: 50+ Years Completed 04/13/2017, 09/18/2014 Zoster Vaccines Completed 02/24/2021, 11/16, 09/24/2013 RSV Immunization Adult Patients Completed 02/19/2023 Depression Screening Completed 09/25/2024 HIB Vaccines Aged Out No longer eligi [...] Procedure Name Priority Date/Time Associated Diagnosis Comments CBC WITH AUTO DIFFERENTIAL Routine 12/10/2024 11:46 AM EDT Other fatigue LIPID PANEL WITH REFLEX TO DIRECT LDL Routine 12/10/2024 11:46 AM EDT High cholesterol COMPREHENSIVE METABOLIC PANEL Routine 12/10/2024 11:46 AM EDT Encounter for long-term (current) use of medications CBC AND DIFFERENTIAL Routine 12/10/2024 11:46 AM EDT Other fatigue THYROID STIMULATING HORMONE WITH REFLEX TO FREE T4 AND FREE T3 Routine 12/10/2024 11:46 AM EDT Other fatigue MR LUMBAR SPINE WO CONTRAST Routine 10/30/2024 8:37 AM EDT COMPREHENSIVE METABOLIC PANEL Routine 10/29/2024 1:20 PM EDT Pancreatic lesion AMYLASE Routine 10/29/2024 1:20 PM EDT Pancreatic lesion LIPASE Routine 10/29/2024 1:20 PM EDT Pancreatic lesion BD BONE DENSITY DXA AXIAL SKELETON Routine 04/02/2024 1:47 PM EST Screening for osteoporosis SCREENING MAMMOGRAPHY BI 2-VIEW BREAST INC CAD Routine 12/13/2023 9:52 AM EDT Encounter for screening mammogram for malignant neoplasm of breast COLONOSCOPY Routine 10/09/2023 HEPATITIS C SCREENING Routine 09/18/2014 from Last 3 Months or Most Recently Relevant to Health Maintenance Results * Thyroid stimulating hormone with reflex to free t4 and free t3 (12/10/2024 11:46 AM EDT) Pathologist [facility] TSH 0.41 0.40 - 4.00 mcIU/mL LAB CHEMISTRY METHOD 12/10/2024 6:38 PM EDT [facility] Blood Venous blood specimen / Unknown Venipuncture / Unknown 12/10/2024 11:46 AM EDT 12/10/2024 11:46 AM EDT us Johan Aldridge MD LAB BLOOD ORDERABLES Final Resu lt [facility] [address] [place] [address], * Lipid panel with reflex to direct LDL (12/10/2024 11:46 AM EDT) Cholesterol 137 0 - 200 mg/dL LAB CHEMISTRY METHOD 12/10/2024 5:56 PM EDT [facility] Triglycerides 132 0 - 150 mg/dL LAB CHEMISTRY METHOD 12/10/2024 5:56 PM EDT [facility] HDL 64 >=40 mg/dL LAB CHEMISTRY METHOD 12/10/2024 5:56 PM EDT [facility] LDL Calculated 47 0 - 100 mg/dL LAB CHEMISTRY METHOD 12/10/2024 5:56 PM EDT [facility] Comment:Estimated LDL Calcul ated using equation: Total cholesterol - HDL cholesterol - (Triglycerides/5) VLDL Cholesterol Natanael 26.4 mg/dL LAB CHEMISTRY METHOD 12/10/2024 5:56 PM EDT [facility] Non HDL Chol. (LDL+VLDL) 73 <145 mg/dL LAB CHEMISTRY METHOD 12/10/2024 5:56 PM EDT [facility] Chol/HDL Ratio 2.1 0.0 - 4.4 LAB CHEMISTRY METHOD 12/10/2024 5:56 PM EDT [facility] Blood Venous blood specimen / Unknown Venipuncture / Unknown 12/10/2024 11:46 AM EDT 12/10/2024 11:46 AM EDT us Johan Aldridge MD LAB BLOOD ORDERABLES Final Resu lt [facility] [address] [place] [address], * (ABNORMAL) CBC auto differential (12/10/2024 11:46 AM EDT) WBC 7.2 4.8 - 10.8 K/mcL LAB HEMETOLOGY METHOD 12/10/2024 2:27 PM EDT [facility] RBC 4.20 3.80 - 4.80 M/mcL LAB HEMETOLOGY METHOD 12/10/2024 2:27 PM EDT [facility] Hemoglobin 13.4 11.5 - 16.0 g/dL LAB HEMETOLOGY METHOD 12/10/2024 2:27 PM EDT [facility] Hematocrit 39.6 35.0 - 47.0 % LAB HEMETOLOGY METHOD 12/10/2024 2:[facility] MCV 93.8 79.0 - 98.0 FL LAB HEMETOLOGY METHOD 12/10/2024 2:27 PM EDT [facility] MCH 31.8 27.0 - 32.0 pcg LAB HEMETOLOGY METHOD 12/10/2024 2:27 PM [facility] MCHC 33.8 32.0 - 37.0 g/dL LAB HEMETOLOGY METHOD 12/10/2024 2:27 PM [facility] RDW 13.0 11.0 - 15.0 % LAB HEMETOLOGY METHOD 12/10/2024 2:27 PM EDT [facility] Platelets 236 130 - 400 K/mcL LAB HEMETOLOGY METHOD 12/10/2024 2:27 PM [facility] MPV 11.1(H) 7.0 - 11.0 FL LAB HEMETOLOGY METHOD 12/10/2024 2:27 PM [facility] NRBC 0.0 <1.0 % LAB HEMETOLOGY METHOD 12/10/2024 2:27 PM [facility] NRBC Absolute 0.00 <0.10 K/mcL LAB HEMETOLOGY METHOD 12/10/2024 2:27 PM [facility] Neutrophils Relative 63.0 % LAB HEMETOLOGY METHOD 12/10/2024 2:27 PM [facility] Lymphocytes Relative 28.7 % LAB HEMETOLOGY METHOD 12/10/2024 2:27 PM [facility] Monocytes Relative 6.7 % LAB HEMETOLOGY METHOD 12/10/2024 2:27 PM EDT [facility] Eosinophils Relative 1.0 % LAB HEMETOLOGY METHOD 12/10/2024 2:27 PM EDT [facility] Basophils Relative 0.3 % LAB HEMETOLOGY METHOD 12/10/2024 2:27 PM EDT [facility] Immature Granulocytes Relative 0.3 % LAB HEMETOLOGY METHOD 12/10/2024 2:27 PM EDT [facility] Neutrophils Absolute 4.53 1.50 - 7.00 K/mcL LAB HEMETOLOGY METHOD 12/10/2024 2:27 PM EDT [facility] Lymphocytes Absolute 2.06 1.00 - 5.00 K/mcL LAB HEMETOLOGY METHOD 12/10/2024 2:27 PM EDT [facility] Monocytes Absolute 0.48 0.20 - 1.00 K/mcL LAB HEMETOLOGY METHOD 12/10/2024 2:27 PM EDT [facility] Eosinophils Absolute 0.07 0.00 - 0.50 K/mcL LAB HEMETOLOGY METHOD 12/10/2024 2:27 PM EDT [facility] Basophils Absolute 0.02 0.00 - 0.20 K/mcL LAB HEMETOLOGY METHOD 12/10/2024 2:27 PM EDT [facility] Immature Granulocytes Absolute 0.02 0.00 - 0.03 K/mcL LAB HEMETOLOGY METHOD 12/10/2024 2:27 PM EDT [facility] Blood Venous blood specimen / Unknown Venipuncture / Unknown 12/10/2024 11:46 AM EDT 12/10/2024 11:46 AM EDT us Johan Aldridge MD LAB BLOOD ORDERABLES Final Resu lt [facility] [address] [place] [address], * (ABNORMAL) Comprehensive metabolic panel (12/10/2024 11:46 AM EDT) Only the most recent of2 resultswithin the time period is included. Sodium 138 133 - 145 mmol/L LAB CHEMISTRY METHOD 12/10/2024 5:56 PM [facility] Potassium 3.5 3.5 - 5.5 mmol/L LAB CHEMISTRY METHOD 12/10/2024 5:56 PM [facility] Chloride 104 96 - 110 mmol/L LAB CHEMISTRY METHOD 12/10/2024 5:56 PM [facility] CO2 27 21 - 32 mmol/L LAB CHEMISTRY METHOD 12/10/2024 5:56 PM [facility] Anion Gap 7 3 - 11 LAB CHEMISTRY METHOD 12/10/2024 5:56 PM [facility] Glucose 125(H) 70 - 100 mg/dL LAB CHEMISTRY METHOD 12/10/2024 5:56 PM [facility] BUN 9 5 - 25 mg/dL LAB CHEMISTRY METHOD 12/10/2024 5:56 PM [facility] Creatinine 0.67 0.50 - 1.10 mg/dL LAB CHEMISTRY METHOD 12/10/2024 5:56 PM [facility] eGFR 92 >=60 mL/min/1. 73m2 LAB CHEMISTRY METHOD 12/10/2024 5:56 PM [facility] Comment:Calculation based on the Chronic Kidney Disease Epidemiology Collaboration (CKD-EPI) equation refit without adjustment for race. BUN/Creatinine Ratio 13.4 LAB CHEMISTRY METHOD 12/10/2024 5:56 PM [facility] Calcium 9.0 8.5 - 10.5 mg/dL LAB CHEMISTRY METHOD 12/10/2024 5:56 PM [facility] AST (SGOT) 23 10 - 42 unit/L LAB CHEMISTRY METHOD 12/10/2024 5:56 PM EDT [facility] ALT (SGPT) 23 10 - 60 unit/L LAB CHEMISTRY METHOD 12/10/2024 5:56 PM EDT [facility] Alkaline Phosphatase 70 42 - 121 unit/L LAB CHEMISTRY METHOD 12/10/2024 5:56 PM EDT [facility] Total Protein 6.7 6.0 - 8.0 g/dL LAB CHEMISTRY METHOD 12/10/2024 5:56 PM EDT [facility] Albumin 3.9 3.2 - 5.0 g/dL LAB CHEMISTRY METHOD 12/10/2024 5:56 PM EDT [facility] Total Bilirubin 0.4 0.0 - 1.4 mg/dL LAB CHEMISTRY METHOD 12/10/2024 5:56 PM EDT [facility] Blood Venous blood specimen / Unknown Venipuncture / Unknown 12/10/2024 11:46 AM EDT 12/10/2024 11:46 AM EDT Johan Aldridge MD LAB BLOOD ORDERABLES Final Resu lt [facility] [address] [place] [address], * MR Lumbar Spine wo Contrast (10/30/2024 8:37 AM EDT) Anatomical Region Laterality Modality L-spine, Spine Magnetic Resonan ce Historical Provider IMG MRI PROCEDURES Final Result * (ABNORMAL) Lipase (10/29/2024 1:20 PM EDT) Lipase 10(L) 13 - 75 unit/L LAB CHEMISTRY METHOD 10/29/2024 5:45 PM EDT [facility] Blood Venous blood specimen / Unknown Venipuncture / Unknown 10/29/2024 1:20 PM EDT 10/29/2024 1:20 PM EDT us Johan Aldridge MD LAB BLOOD ORDERABLES Final Resu lt Performing Organization Address City/[facility]/ZIP Co de Phone Number [facility] [address] [place] [address], [place] [phone] * Amylase (10/29/2024 1:20 PM EDT) Amylase 44 25 - 115 unit/L LAB CHEMISTRY METHOD 10/29/2024 5:45 PM EDT [facility] Blood Venous blood specimen / Unknown Venipuncture / Unknown 10/29/2024 1:20 PM EDT 10/29/2024 1:20 PM EDT us Johan Aldridge MD LAB BLOOD ORDERABLES Final Resu lt Performing Organization Address [facility]/ZIP Co de Phone Number [facility] [address] [place] [address], [place] [phone] * BD Bone Density DXA Axial Skeleton (04/02/2024 1:47 PM EST) Anatomical Region Laterality Modality Wrist, Hip, L-spine Bone Densito metry 04/02/2024 4:06 PM EST Impressions 04/02/2024 4:09 PM EST Osteoporosis by WHO criteria. [facility] Department of Internal Medicine recommends using National [...] alternative screening schedule based on sebastián Mark., [facility] May 05, 2011 for patients with osteopenia (based on hip BMD T-score) is as follows: * advanced osteopenia (T scores [...] Signed Date: 04/02/2024 16:09 ET Workstation ID: [id number] Transcribed By: Self Edit Transcribed Date: 04/02/2024 [...] study for comparison of the left forearm. 5.9% loss of lumbar spine bone mineral density which is statistically significant at the 95% confidence level. No statistically significant change in left hip [...] L1. IMPRESSION: Osteoporosis by WHO criteria. [facility] Department of Internal Medicine recommendsusing National Osteoporosis [...] alternative screening schedule based on sebastián Mark., [facility] for patients with osteopenia (based [...] Signed Date: 04/02/2024 16:09 ET Workstation ID: [id number] Transcribed By: Self Edit Transcribed Date: 04/02/2024 16:06 ET us Vikki CARTER IMG DXA PROCEDURES Final Resu lt * SCREENING MAMMOGRAPHY BI 2-VIEW BREAST INC [...] typically benign parenchymal asymmetries IMPRESSION: : 1. No mammographic evidence of [...] negative, abstracted Anatomical Region Laterality Modality Other [facility] Provider HEALTH MAINTENANCE Final Result * Hepatitis C Screening (09/18/2014) Hepatitis C Screening abstracted [facility] Provider HEALTH MAINTENANCE Final Result from Last 3 Months or Most Recently Relevant to Health Maintenance Insurance [employer] Care Teams Plant Breeder Relationship Specialty Start Date End Date Johan Aldridge MD [address] [place] [phone] PCP - General Internal Medicine 04/02/24
== END 2024-12-17 06:19 | disposition home or self-care (01) ==
LOC: CF 06:18
PROVIDERS: Visit Provider Anesthesiology
DX: M47.816 Spondylosis without myelopathy or radiculopathy, lumbar region (principal); M25.551 Pain in right hip; M53.3 Sacrococcygeal disorders, not elsewhere classified; M54.59 Other low back pain; M81.0 Age-related osteoporosis without current pathological fracture; S32.010D Wedge compression fracture of first lumbar vertebra, subsequent encounter for fracture with routine healing; K86.2 Cyst of pancreas
CPT/HCPCS: 64493; 64494; J2003; J2795; Q9967

== ENCOUNTER 2024-12-17 14:31 | Outpatient (AMB) | payer OTHER, SELFPAY ==
--- NOTE | 2024-12-17 14:45 | MHC.OFFVIS ---
Vital Signs 12/17/24 14:46 Weight 190 lb BP 101/67 Blood Pressure Location Lt brachial Position Sitting Respiration 16 Pulse 110 H Pulse Source Pulse Oximeter Pulse Oximetry (%) 95 Oxygen Delivery Method Room Air Intake Visit Reasons: BILATERAL DIAGNOSTIC L3-L4-DRL5 MBB Licensed Surveyor Required: No Allergies alendronate sodium (From Fosamax) Allergy (Intermediate, Verified 10/02/24 14:55) Chest Pain PFSH Medical History Arthritis Urinary tract infection Left shoulder pain Left-sided weakness Hyperlipidemia GERD (gastroesophageal reflux disease) Depression COPD (chronic obstructive pulmonary disease) T12 compression fracture Osteoporosis Cervical spondylosis with myelopathy and radiculopathy Lumbar spondylosis Surgical History History of sleeve gastrectomy Hx of kyphoplasty H/O colonoscopy H/O: section H/O cervical spine surgery Social History Are you a primary aged or disabled care worker to a significant other at home: No Do you presently have visiting nurse or other home services: No Alcohol intake: current Alcohol intake frequency: holidays/special occasions only Patient Tobacco Use Status: Former Tobacco user Tobacco use type: Cigarette Substance Use Type: Caffiene Physical Exam Vital Signs: Last Vital Signs Pulse 110 H 12/17/24 14:46 Resp 16 12/17/24 14:46 BP 101/67 12/17/24 14:46 Pulse Ox 95 12/17/24 14:46 Oxygen Delivery Method Room Air 12/17/24 14:46 Assessment & Plan Assessment & Plan (1) Right hip pain: Code(s): M25.551 - Pain in right hip Category: Medical (2) Sacroiliac joint dysfunction of right side: Code(s): M53.3 - Sacrococcygeal disorders, not elsewhere classified Category: Medical (3) Lumbar degenerative disc disease: Code(s): M51.36 - Other intervertebral disc degeneration, lumbar region Category: Medical (4) Discogenic lumbar pain: Code(s): M54.59 - Other low back pain Category: Medical (5) Lumbar spondylosis: Code(s): M47.816 - Spondylosis without myelopathy or radiculopathy, lumbar region Category: Medical (6) Osteoporosis: Code(s): M81.0 - Age-related osteoporosis without current pathological fracture Category: Medical (7) Compression fracture of L1 lumbar vertebra: Code(s): S32.010A - Wedge compression fracture of first lumbar vertebra, initial encounter for closed fracture Category: Medical (8) Pancreatic cyst: Code(s): K86.2 - Cyst of pancreas Category: Medical (9) Spondylosis of lumbar region without myelopathy or radiculopathy: Code(s): M47.816 - Spondylosis without myelopathy or radiculopathy, lumbar region Category: Medical Plan Diagnostic medial branch block L3,L4 dorsal ramus L5 bilateral.? ? ?Informed consent was explained to the patient. All questions were explained and? answered.? The patient was taken inside the operating room where she was positioned prone on the operating table. Time-out was performed delineating correct site, side, the nature of the procedure, patient's allergy, . All operating room staff was participating in OR time-out procedure. ? ? The lower back was prepped with ChloraPrep and draped with sterile utility towels.? C-arm was brought over the operating field and sq picture of L4-, L5 vertebra and S1 AREA were delineated on the screen.? Point of interest were delineated as confluence of superior articular process of L4 and L5 vertebra bilaterally with corresponding transverse processes as well as confluence of the sacral alae bilaterally with superior articular process of S1.? The projection of the point of interest to the skin were injected with the small amount of local anesthetic lidocaine 2% mixed with ropivacaine 0.5% 1-1 approximately 1 cc.? After that 22 gauge 3.5 inch spinal needle was driven sequentially to the points of interest in tunnel vision fashion. After needles gently contacted the bone at the point of interests the needle was injected with small amount of the contrast.? The injection of the contrast did not demonstrate any intravascular or intrathecal spread of the contrast.? After that injection of the? ropivacaine 0.5%-1cc was performed at each needle location.?After that the needles were removed and Bandaids were applied. Orders: Orders FL guidance in treatment room 12/17/24 M47.816 - Spondylosis without myelopathy or radiculopathy, lumbar region Coding Level of Care Code Procedure Only Diagnoses Right hip pain M25.551 Sacroiliac joint dysfunction of right side M53.3 Lumbar degenerative disc disease M51.36 Discogenic lumbar pain M54.59 Lumbar spondylosis M47.816 Osteoporosis M81.0 Compression fracture of L1 lumbar vertebra S32.010A Pancreatic cyst K86.2 Spondylosis of lumbar region without myelopathy or radiculopathy M47.816
[2024-12-17 14:46] VITALS: BP 101/67; PULSE 110; RESP 16; O2SAT 95
--- OUTSIDE RECORDS SUMMARY | 2024-12-17 15:42 | XMS_ITS | Encounter Summary ---
Author Organization [facility] [place] [address] Care Team Providers Care Casting Agent Name Role Phone Johan Aldridge MD Primary Care Provider [phone] Encounter Details Date Type Department Care Team ([facility] st Contact Info) Description 11/11/2024 Telephone Adult Medicine [address] [phone] Beth Slaughter LPN Social History Tobacco Use [...] care for your loved ones. For example, children's choir director or elderly care for an older adult? [...] 01/01/2025 10:40 AM EDT Appointment Radiology Department [address] [phone] 01/28/2025 8:40 AM EDT Consult Gastroenterology - [place] [address] [facility] [address] [place] [address] Delicia Negron NP [address] [place] [address] 04/22/2025 9:15 AM EST Office Visit Bariatric Surgery - [place] 175 [facility] 120 [place] [phone] Shahram Lopez MD [address] [place] [address] 06/27/2025 11:30 AM EDT Office Visit Adult Medicine South - [place] [address] [place] [address] Johan Aldridge MD [address] [place] [address] 12/15/2025 8:30 AM EDT Office Visit Urogynecology [address] [phone] Phyllis Mirza MD [address] [place] [address] documented as of this encounter Visit Diagnoses Not on filedocumented in this encounter Additional Health Concerns Assessment Noted Time PHQ-9 Depression Total Score: 5 09/26/19 25 6:53 PM EDT documented as of this encounter Care Teams Casting Agent Relationship Specialty Start Date End Date Johan Aldridge MD [address] [place] [address] PCP - General Internal Medicine 04/02/24 documented as of this encounter
--- OUTSIDE RECORDS SUMMARY | 2024-12-17 15:42 | XMS_ITS | Clinical Summary ---
Author Organization [address] Address [address] [facility] [place] Soriano [address] Phone Care Team Providers Care [employer] Technician Name Role Phone Johan Aldridge MD Primary Care Provider [phone] Allergies Active Allergy Reactions Criticality Noted Date [...] Severe obesity (BMI 35.0-39. 9) with comorbidity ([facility] V24, [facility] V28) 07/04/2023 Overview (03/26/2024): s/p gastric sleeve (June 2017) Tubular adenoma 07/04/2023 Vitamin D deficiency 07/22/2021 Osteopenia 03/03/2021 Overview (03/26/2024): Bone Density 02/2021. Enchondroma 12/16/2020 Overview (03/26/2024): MRI Left Shoulder: 12/15/20: Repeat plain image 6 mth. Ordered. Atelectasis 04/23/2018 Chronic obstructive pulmonar y disease ([facility] V24, [facility] V28) 04/23/2018 Pulmonary nodules 04/23/2018 Moderate single current epis ode of major depressive disorder ([facility] V24, [facility] V28) 02/10/2016 Amblyopia 02/13/2013 Cortical cataract of both eyes 02/13/2013 Nuclear sclerosis 02/13/2013 Encounters Date Type Department Care Team Description 12/10/2024 11:00 AM EDT Office Visit Adult Medicine [address] [phone] Johan Aldridge MD High cholesterol (Primary Dx); Encounter for long-term (current) use of medications; Other fatigue; Chronic obstructive pulmonary disease, unspecified COPD type ([facility] V24, [facility] V28); Gait abnormality; Left foot drop; Obesity due to excess calories, unspecified class, unspecified whether serious comorbidity present 12/10/2024 8:45 AM EDT Office Visit Urogynecology [address] [phone] Phyllis Mirza MD Urge incontinence (Primary Dx); Urinary urgency; Detrusor overactivity; BRYCE (stress urinary incontinence, female); Overactive bladder 12/06/2024 Telephone Urogynecology [address] [place] [address] Phyllis Mirza MD 11/18/[address] [phone] Johan Aldridge MD 11/11/2024 Telephone Adult [address] [phone] Beth Slaughter LPN 10/29/2024 1:00 PM EDT Office Visit [address] [phone] Johan Aldridge MD Pancreatic lesion (Primary Dx); Compression fracture of body of thoracic vertebra ([facility] V24, [facility] V28) 10/15/2024 8:15 AM EDT Office Visit Bariatric Surgery [address] [place] [phone] Shahram Lopez MD Class 1 obesity due to excess calories with body mass index (BMI) of 33.0 to 33.9 in adult, unspecified whether serious comorbidity present (Primary Dx); Obesity 10/07/[address] [phone] Johan Aldridge MD 10/02/2024 5:00 PM EDT Office Visit Adult [address] [place] [address] Salma Lemons, DOLL EYE SETTER Left foot drop (Primary Dx) from Last [...] five yrs COLONOSCOPY W/ BIOPSIES 06/17/16 PROCEDURE: AL COLONOSCOPY W/BIOPSY SINGLE/MULTIPLE; COMMENT: adenoma; repeat in 5 yrs GASTRIC BYPASS 06/23/2017 PROCEDURE: AL GASTRIC RSTCV W/BYP W/SM INT RCNSTJ LIMIT [...] care for your loved ones. For example, early childhood services coordinator or elderly care for an older adult? [...] 10:40 AM EDT Appointment Radiology Department - [place] [phone] 01/28/2025 8:40 AM EDT Consult Gastroenterology - [place] 175 [facility] 175 [facility] [address] [place] [phone] Delicia Negron NP [address] [place] [address] 04/22/2025 9:15 AM EST Office Visit Bariatric Surgery - [place] 175 [facility] [address] [place] [phone] Shahram Lopez MD [address] [place] [address] 06/27/2025 11:30 AM EDT Office Visit Adult Medicine South - [address] [phone] Johan Aldridge MD [address] [place], [place] 12/15/2025 8:30 AM EDT Office Visit Urogynecology - [address] [phone] Phyllis Mirza MD [address] [place] [address] Health Maintenance Due Date Last Done Comments [...] free t3 (12/10/2024 11:46 AM EDT) Pathologist [facility] TSH 0.41 0.40 - 4.00 mcIU/mL LAB CHEMISTRY METHOD 12/10/2024 6:[address] [facility] Blood Venous blood specimen / Unknown Venipuncture / Unknown 12/10/2024 11:46 AM EDT 12/10/2024 11:46 AM EDT us Johan Aldridge MD LAB BLOOD ORDERABLES Final Resu lt [facility] [address] [place] [address], * Lipid panel with reflex to direct LDL (12/10/2024 11:46 AM EDT) Cholesterol 137 0 - 200 mg/dL LAB CHEMISTRY METHOD 12/10/2024 5:[address] [facility] Triglycerides 132 0 - 150 mg/dL LAB CHEMISTRY METHOD 12/10/2024 5:[address] [facility] HDL 64 >=40 mg/dL LAB CHEMISTRY METHOD 12/10/2024 5:[address] [facility] LDL Calculated 47 0 - 100 mg/dL LAB CHEMISTRY METHOD 12/10/2024 5:[address] [facility] Comment:Estimated LDL Calcul ated using equation: Total cholesterol - HDL cholesterol - (Triglycerides/5) VLDL Cholesterol Natanael 26.4 mg/dL LAB CHEMISTRY METHOD 12/10/2024 5:[address] [facility] Non HDL Chol. (LDL+VLDL) 73 <145 mg/dL LAB CHEMISTRY METHOD 12/10/2024 5:[address] [facility] Chol/HDL Ratio 2.1 0.0 - 4.4 LAB CHEMISTRY METHOD 12/10/2024 5:[address] [facility] Blood Venous blood specimen / Unknown Venipuncture / Unknown 12/10/2024 11:46 AM EDT 12/10/2024 11:46 AM EDT us Johan Aldridge MD LAB BLOOD ORDERABLES Final Resu lt [facility] [address] [place] [address], * (ABNORMAL) CBC auto differential (12/10/2024 11:46 AM EDT) WBC 7.2 4.8 - 10.8 K/mcL LAB HEMETOLOGY METHOD 12/10/2024 2:[address] [facility] RBC 4.20 3.80 - 4.80 M/mcL LAB HEMETOLOGY METHOD 12/10/2024 2:[address] [facility] Hemoglobin 13.4 11.5 - 16.0 g/dL LAB HEMETOLOGY METHOD 12/10/2024 2:[address] [facility] Hematocrit 39.6 35.0 - 47.0 % LAB HEMETOLOGY METHOD 12/10[facility] MCV 93.8 79.0 - 98.0 FL LAB HEMETOLOGY METHOD 12/10/2024 2:[address] [facility] MCH 31.8 27.0 - 32.0 pcg LAB HEMETOLOGY METHOD 12/10/2024 2[facility] MCHC 33.8 32.0 - 37.0 g/dL LAB HEMETOLOGY METHOD 12/10/2024 2:[facility] RDW 13.0 11.0 - 15.0 % LAB HEMETOLOGY METHOD 12/10/2024 2:[address] [facility] Platelets 236 130 - 400 K/mcL LAB HEMETOLOGY METHOD 12/10/2024 2[facility] MPV 11.1(H) 7.0 - 11.0 FL LAB HEMETOLOGY METHOD 12/10/2024 2[facility] NRBC 0.0 <1.0 % LAB HEMETOLOGY METHOD 12/10/2024 2:[facility] NRBC Absolute 0.00 <0.10 K/mcL LAB HEMETOLOGY METHOD 12/10/2024 2:[facility] Neutrophils Relative 63.0 % LAB HEMETOLOGY METHOD 12/10/2024 2[facility] Lymphocytes Relative 28.7 % LAB HEMETOLOGY METHOD 12/10/2024 2:[facility] Monocytes Relative 6.7 % LAB HEMETOLOGY METHOD 12/10/2024 2:[address] [facility] Eosinophils Relative 1.0 % LAB HEMETOLOGY METHOD 12/10/2024 2:[address] [facility] Basophils Relative 0.3 % LAB HEMETOLOGY METHOD 12/10/2024 2:[address] [facility] Immature Granulocytes Relative 0.3 % LAB HEMETOLOGY METHOD 12/10/2024 2:[address] [facility] Neutrophils Absolute 4.53 1.50 - 7.00 K/mcL LAB HEMETOLOGY METHOD 12/10/2024 2:[address] [facility] Lymphocytes Absolute 2.06 1.00 - 5.00 K/mcL LAB HEMETOLOGY METHOD 12/10/2024 2:[address] [facility] Monocytes Absolute 0.48 0.20 - 1.00 K/mcL LAB HEMETOLOGY METHOD 12/10/2024 2:[address] [facility] Eosinophils Absolute 0.07 0.00 - 0.50 K/mcL LAB HEMETOLOGY METHOD 12/10/2024 2:[address] [facility] Basophils Absolute 0.02 0.00 - 0.20 K/mcL LAB HEMETOLOGY METHOD 12/10/2024 2:[address] [facility] Immature Granulocytes Absolute 0.02 0.00 - 0.03 K/mcL LAB HEMETOLOGY METHOD 12/10/2024 2:[address] [facility] Blood Venous blood specimen / Unknown Venipuncture / Unknown 12/10/2024 11:46 AM EDT 12/10/2024 11:46 AM EDT us Johan Aldridge MD LAB BLOOD ORDERABLES Final Resu lt [facility] [address] [place] [address], * (ABNORMAL) Comprehensive metabolic panel (12/10/2024 11:46 AM EDT) Only the most recent of2 resultswithin the time period is included. Sodium 138 133 - 145 mmol/L LAB CHEMISTRY METHOD 12/10/2024 5:56 PM [facility] Potassium 3.5 3.5 - 5.5 mmol/L LAB CHEMISTRY METHOD 12/10/2024 5:56 PM [facility] Chloride 104 96 - 110 mmol/L LAB CHEMISTRY METHOD 12/10/2024 5:56 PM [facility] CO2 27 21 - 32 mmol/L LAB CHEMISTRY METHOD 12/10/2024 5:56 PM [facility] Anion Gap 7 3 - 11 LAB CHEMISTRY METHOD 12/10/2024 5:56 PM [facility] Glucose 125(H) 70 - 100 mg/dL LAB CHEMISTRY METHOD 12/10/2024 5:56 PM [facility] BUN 9 5 - 25 mg/dL LAB CHEMISTRY METHOD 12/10/2024 5:56 PM [facility] Creatinine 0.67 0.50 - 1.10 mg/dL LAB CHEMISTRY METHOD 12/10/2024 5:56 PM [facility] eGFR 92 >=60 mL/min/1. 73m2 LAB CHEMISTRY METHOD 12/10/2024 5:56 PM [facility] Comment:Calculation based on the Chronic Kidney Disease Epidemiology Collaboration (CKD-EPI) equation refit without adjustment for race. BUN/Creatinine Ratio 13.4 LAB CHEMISTRY METHOD 12/10/2024 5:56 PM [facility] Calcium 9.0 8.5 - 10.5 mg/dL LAB CHEMISTRY METHOD 12/10/2024 5:56 PM [facility] AST (SGOT) 23 10 - 42 unit/L LAB CHEMISTRY METHOD 12/10/2024 5:[address] [facility] ALT (SGPT) 23 10 - 60 unit/L LAB CHEMISTRY METHOD 12/10/2024 5:[address] [facility] Alkaline Phosphatase 70 42 - 121 unit/L LAB CHEMISTRY METHOD 12/10/2024 5:[address] [facility] Total Protein 6.7 6.0 - 8.0 g/dL LAB CHEMISTRY METHOD 12/10/2024 5:[address] [facility] Albumin 3.9 3.2 - 5.0 g/dL LAB CHEMISTRY METHOD 12/10/2024 5:[address] [facility] Total Bilirubin 0.4 0.0 - 1.4 mg/dL LAB CHEMISTRY METHOD 12/10/2024 5:[address] [facility] Blood Venous blood specimen / Unknown Venipuncture / Unknown 12/10/2024 11:46 AM EDT 12/10/2024 11:46 AM EDT Johan Aldridge MD LAB BLOOD ORDERABLES Final Resu lt [facility] [address] [place] [address], * MR Lumbar Spine wo Contrast (10/30/2024 8:37 AM EDT) Anatomical Region Laterality Modality L-spine, Spine Magnetic Resonan ce Historical Provider IMG MRI PROCEDURES Final Result * (ABNORMAL) Lipase (10/29/2024 1:20 PM EDT) Lipase 10(L) 13 - 75 unit/L LAB CHEMISTRY METHOD 10/29/2024 5:[address] [facility] Blood Venous blood specimen / Unknown Venipuncture / Unknown 10/29/2024 1:20 PM EDT 10/29/2024 1:20 PM EDT us Johan Aldridge MD LAB BLOOD ORDERABLES Final Resu lt Performing Organization Address City/[facility]/ZIP Co de Phone Number [facility] [address] [place] [address], [place] [phone] * Amylase (10/29/2024 1:20 PM EDT) Amylase 44 25 - 115 unit/L LAB CHEMISTRY METHOD 10/29/2024 5:[address] [facility] Blood Venous blood specimen / Unknown Venipuncture / Unknown 10/29/2024 1:20 PM EDT 10/29/2024 1:20 PM EDT us Johan Aldridge MD LAB BLOOD ORDERABLES Final Resu lt Performing Organization Address [facility]/ZIP Co de Phone Number [facility] [address] [place] [address], [place] [phone] * BD Bone Density DXA Axial Skeleton (04/02/2024 1:47 PM EST) Anatomical Region Laterality Modality Wrist, Hip, L-spine Bone Densito metry 04/02/2024 4:06 PM EST Impressions 04/02/2024 4:09 PM EST Osteoporosis by WHO criteria. The [facility] Department of Internal Medicine recommends using National [...] alternative screening schedule based on sebastián Mark., [facility] May 05, 2011 for [...] Signed Date: 04/02/2024 16:09 ET Workstation ID: [id number] Transcribed By: Self Edit Transcribed Date: 04/02/2024 [...] L1. IMPRESSION: Osteoporosis by WHO criteria. The [facility] Department of Internal Medicine recommendsusing National Osteoporosis [...] alternative screening schedule based on sebastián Mark., [facility] for patients with [...] Signed Date: 04/02/2024 16:09 ET Workstation ID: [id number] Transcribed By: Self Edit Transcribed Date: 04/02/2024 [...] negative, abstracted Anatomical Region Laterality Modality Other [facility] Provider HEALTH MAINTENANCE Final Result * Hepatitis C Screening (09/18/2014) Hepatitis C Screening abstracted [facility] Provider HEALTH MAINTENANCE Final Result from Last 3 Months or Most Recently Relevant to Health Maintenance Insurance [employer] [facility] [employer] Care Teams [employer] Technician Relationship Specialty Start Date End Date Johan Aldridge MD [address] [place] [phone] PCP - General Internal Medicine 04/02/24
--- OUTSIDE RECORDS SUMMARY | 2024-12-17 15:42 | XMS_ITS | Encounter Summary ---
Author Organization [facility] [address] Care Team Providers Care Branch Library Clerk Name Role Phone Johan Aldridge MD Primary Care Provider [phone] Reason for Visit * Reason Onset Date Comments faxed order 11/18/2024 [facility] physical DOC ID [id number] Encounter Details Date Type Department Care Team (Late st Contact Info) Description 11/18/2024 Telephone Adult Medicine [address] [phone] Johan Aldridge MD [address] [place] [address] Social History Tobacco Use Types Packs/Day Years [...] for your loved ones. For example, child care aide or elderly care for an older adult? [...] 3:52 PM EDT [facility] physical DOC ID [id number] received please sign and fax to [phone] documented in this encounter Plan of Treatment Upcoming Encounters Date Type Department Care Team (Late st Contact Info) Description 01/01/2025 10:40 AM EDT Appointment Radiology Department - [address] [phone] 01/28/2025 8:40 AM EDT Consult Gastroenterology - [place] 175 [facility] 175 [facility] [address] [place] [phone] Delicia Negron NP [address] [place], [place] 04/22/2025 9:15 AM EST Office Visit Bariatric Surgery - [place] 175 [facility] [address] [place] [phone] Shahram Lopez MD [address] [place], [place] 06/27/2025 11:30 AM EDT Office Visit Adult Medicine South - [address] [phone] Johan Aldridge MD [address] [place] [address] 12/15/2025 8:30 AM EDT Office Visit Urogynecology - [address] [phone] Phyllis Mirza MD [address] [place] [address] documented as of this encounter Visit Diagnoses Not on filedocumented in this encounter Additional Health Concerns Assessment Noted Time PHQ-9 Depression Total Score: 5 09/26/19 25 6:53 PM EDT documented as of this encounter Care Teams Branch Library Clerk Relationship Specialty Start Date End Date Johan Aldridge MD [address] [place] [phone] PCP - General Internal Medicine 04/02/24 documented as of this encounter
== END 2024-12-17 15:32 | disposition home or self-care (01) ==
LOC: HO.PMCPRC 14:31
PROVIDERS: PCP Internal Medicine; Visit Provider Anesthesiology
DX: M47.816 Spondylosis without myelopathy or radiculopathy, lumbar region (principal)
CPT/HCPCS: 64493; 64494

== ENCOUNTER 2024-12-19 10:47 | Outpatient (AMB) | payer OTHER, SELFPAY ==
[2024-12-19 10:53] VITALS: BP 112/73; PULSE 100; RESP 18; O2SAT 97
--- NOTE | 2024-12-19 10:53 | A.OFFVIS_ITS ---
Vital Signs 12/19/24 10:53 Weight 190 lb BP 112/73 Blood Pressure Location Lt brachial Position Sitting Respiration 18 Pulse 100 Pulse Oximetry (%) 97 Oxygen Delivery Method Room Air Intake Visit Reasons: S/P BILATERAL DIAGNOSTIC L3-L4-DRL5 MBB Head Worker Required: No Allergies alendronate sodium (From Fosamax) Allergy (Intermediate, Verified 12/19/24 10:53) Chest Pain HPI Comments Details: Kathya is back in my office after diagnostic medial branch block L3-L4 dorsal ramus L5 bilateral. Patient reported absence of pain for the 1st 8 hours after the procedure. Reports improved mobility and activities of daily living. She reports significant improvement even now, 2 days after the procedure. I offered the patient sprint PNS versus RFA. Patient chose to go for Sprint PNS. Requests me to schedule the procedure in January. Last time patient visited me with complains on most lower back pain. She reported that pain got more severe after minor trauma. She has a history of VCF of T12 and L1. I suspected lower lumbar compression fractures. I sent her for the MRI- The MRI is negative for the new compression fractures. The physical ex am is as below. I suspect this patient is suffering from spondylosis of lumbar spine among other things. Incidental finding on the MRI she has 6 mm pancreatic cyst. It needs to be assessed by Gastroenterology. I will make appropriate referral. Prior: In the past she received kyphoplasty from me at T12 compression fracture. She recently fell on her buttocks and after that she went for MRI which demonstrated L1 compression fracture. Last time I was seeing her for diagnosis of VCF I recommended her to consider treatment for osteoporosis with primary care physician or frame assembler. Her primary care physician started her on alendronate the patient reported unpleasant and intolerable side effects. Unfortunately instead of switching medication her primary care physician just stopped the alendronate. Now the patient is suffering from yet another compression fracture of L1 this time. She reports severe pain in the projection of the upper lumbar spine. She reports difficulty breathing, she reports difficulty taking slow deep breath her pain is being exacerbated when she tries to do that. I will schedule this patient for kyphoplasty as soon as possible. She still has edema at L1 vertebra so we need to provide the service expeditiously. PRIOR: Patient is a pleasant 72 years old female with a history of T12 compression fracture, prior neck surgery and osteoporosis, presents today with worsening chronic low back pain for the past 8 months. She is accompanied by her . Patient reports left foot drop with walking, left sided weakness and frequent balance issues with walking. Patient uses a cane with ambulation. She reports a fall 2 weeks ago when she was getting out of her car and her left leg gave out. Patient shows healing abrasions on her right elbow and left palm due to recent fall. Reports previous cervical spine surgery, anterior approach. She has seen her neurologist Dr. Downing yesterday and he ordered the patient to undergo cervical MRI with and without IV contrast at [facility]. Her back is axial, spreads across her lower back without radiation to her lower extremities. She reports tenderness in the projections of both GTB. Patient reports limited cera. She also reports left shoulder pain that has been relieved with recent cortisone injection by her orthopedic provider. Patient reports bilateral foot pain and pain in her big toes. She has completed physical therapy and home exercise program in the past with temporary and minimal symptoms improvement. Currently she takes Tylenol with partial pain relief. She rates her pain at 5/10. [facility] Medical History Arthritis Urinary tract infection Left shoulder pain Left-sided weakness Hyperlipidemia GERD (gastroesophageal reflux disease) Depression COPD (chronic obstructive pulmonary disease) T12 compression fracture Osteoporosis Cervical spondylosis with myelopathy and radiculopathy Lumbar spondylosis Surgical History History of sleeve gastrectomy Hx of kyphoplasty H/O colonoscopy H/O: section H/O cervical spine surgery Social History Are you a primary multi care technician to a significant other at home: No Do you presently have visiting nurse or other home services: No Alcohol intake: current Alcohol intake frequency: holidays/special occasions only Patient Tobacco Use Status: Former Tobacco user Tobacco use type: Cigarette Substance Use Type: Caffiene Review of Systems Const All systems reviewed & are unremarkable except as noted in HPI and below ENT Reports Normal hearing present Neuro Reports Normal hearing present, Denies confusion and Denies Sensory deficit (Neuro) Psych Denies confusion Physical Exam Vital Signs: Last Vital Signs Pulse 100 12/19/24 10:53 Resp 18 12/19/24 10:53 BP 112/73 12/19/24 10:53 Pulse Ox 97 12/19/24 10:53 Oxygen Delivery Method Room Air 12/19/24 10:53 Const General: cooperative, no acute distress, alert, awake and well groomed; No confusion Nutritional Appearance: average body habitus Orientation/consciousness: patient oriented x3 and No confusion Limitations: no limitations HEENT Head: Yes normal to inspection, Yes normocephalic, Yes atraumatic and No occipital foramen tenderness Ears: hearing grossly normal bilaterally Face and sinus: Yes normal facial exam and Yes face symmetric Mouth: moist mucous membranes Eyes General: appearance normal, both eyes and all related structures Visual Ruiz: normal visual ruiz by confrontation Pupils: Equal, round and reactive pupils present EOM: EOMs intact bilaterally Neck Other: Slightly decreased cervical ROM in all planes. Denies pain with cervical extension and flexion. Spurling compression test equivocal. Pain is unchanged by Spurling maneuver with retraction. Elvey's tension test positive on the left, with radiation of pain from neck to wrist. Lhermitte's test was negative. Diminished DTRs on the left, +2 on the right. Patient demonstrated 5/5 right and 4/5 left motor strength of bilateral upper extremities. 2 + radial pulses. Significant tightness throughout left upper trapezius as well as TTP throughout bilateral upper trapezius muscles. No paravertebral tenderness over facet joints bilaterally. Neck: Yes normal visual inspection, Yes no lymphadenopathy, Yes no meningeal signs, Yes supple, No anterior neck swelling and Yes no JVD Resp Effort & Inspection: normal respiratory effort, able to speak in complete sentences, no audible wheezes, no cough and symmetric chest movement Cardio Jugular venous distension: no JVD Bruits: no carotid bruits Peripheral pulses: radial pulses present, posterior tibial pulses present and dorsalis pedis present GI Inspection: Yes normal to inspection, No Abdominal wall edema and Yes obesity Palpation (GI): Soft to palpation and nontender General: Yes no CVA tenderness Back/Spine/Pelvis Other: Patient is able to walk and stand on heels and tip toes with mild difficulty on the left. Antalgic gait with limping on the right. Can flex forward to 70-75 degrees and extend to 5-10 degrees before experiencing lumbar pain. Demonstrates 5/5 strength of quadriceps bilaterally as well as flexion/dorsiflexion of bilateral feet against resistance. 2+ pedal pulses bilaterally. Straight leg rise with dorsiflexion negative bilaterally. Diminished patellar and achilles reflexes bilaterally. Facet loading test negative bilaterally Severe tenderness on palpation in the projection of the lower lumbar spine. Tenderness on percussion in the projection of the lower lumbar spine. Back: no CVA tenderness Cervical Spine: normal cervical lordosis, loss of normal cervical lordosis, cervical muscular tenderness, No pain with cervical ROM, Cervical spine scars present (anterior), No Cervical spine tenderness and No step off deformity Skin General skin exam: no rashes or lesions noted Trauma: abrasion (healing abrasions right elbow and left palm r/t recent fall) Neuro General: patient oriented x3, tone normal, moves all extremities, no meningeal signs, CN's II-XI intact bilaterally and No confusion Cranial nerves: Yes Equal, round and reactive pupils present, Yes Bilaterally intact EOM present and Yes Normal hearing present Cognition (Neuro): normal cognition Gait exam (Neuro): Antalgic gait present, Shuffling gait present (on the left) and No Assistive device used Motor exam (neuro): 5/5 motor strength present throughout, no tremor noted, Normal motor muscle tone present throughout and Motor abnormalities not present Sensory Exam: No Sensory deficit (Neuro) Coordination: Romberg test positive Extrem General: Yes capillary refill normal, Yes no clubbing, cyanosis or edema and Yes no calf tenderness Psych Appearance: grossly normal and well kempt Mental Status: mental status grossly normal Speech and movement: Normal speech and movement present and Clear speech present Affect: normal affect Attitude: cooperative Thought process: Normal thought process present Thought content: Normal thought content present Insight: Good insight present (Psych) Judgement: Good judgement present (Psych) Assessment & Plan Assessment & Plan (1) Right hip pain: Code(s): M25.551 - Pain in right hip Category: Medical (2) Sacroiliac joint dysfunction of right side: Code(s): M53.3 - Sacrococcygeal disorders, not elsewhere classified Category: Medical (3) Lumbar degenerative disc disease: Code(s): M51.36 - Other intervertebral disc degeneration, lumbar region Category: Medical (4) Discogenic lumbar pain: Code(s): M54.59 - Other low back pain Category: Medical (5) Lumbar spondylosis: Code(s): M47.816 - Spondylosis without myelopathy or radiculopathy, lumbar region Category: Medical (6) Osteoporosis: Code(s): M81.0 - Age-related osteoporosis without current pathological fracture Category: Medical (7) Compression fracture of L1 lumbar vertebra: Code(s): S32.010A - Wedge compression fracture of first lumbar vertebra, initial encounter for closed fracture Category: Medical (8) Pancreatic cyst: Code(s): K86.2 - Cyst of pancreas Category: Medical (9) Spondylosis of lumbar region without myelopathy or radiculopathy: Code(s): M47.816 - Spondylosis without myelopathy or radiculopathy, lumbar region Category: Medical Plan It looks like that at least for lower lumbar spine we found the pain generators. I will schedule the patient for treatment of facet arthropathy with sprint PNS. It will be multifidus muscle stimulation. We will try L4 and L5 stimulating targets. These will be 2 procedures scheduled 2 weeks apart. The risks and benefits were explained to the patient. Patient agreed to go for the procedure. Patient Instructions: I here by testify that I spent 32 minutes in conversation with this patient as well as planning her care and organizing this note. Coding Level of Care Code Est Pt Level 4 (41160) Diagnoses Right hip pain M25.551 Sacroiliac joint dysfunction of right side M53.3 Lumbar degenerative disc disease M51.36 Discogenic lumbar pain M54.59 Lumbar spondylosis M47.816 Osteoporosis M81.0 Compression fracture of L1 lumbar vertebra S32.010A Pancreatic cyst K86.2 Spondylosis of lumbar region without myelopathy or radiculopathy M47.816
--- OUTSIDE RECORDS SUMMARY | 2024-12-19 12:24 | XMS_ITS | Clinical Summary ---
Author Organization [address] Address [address] [facility] MAR[place] M Soriano [address] Phone Care Team Providers Care Division Road Supervisor Name Role Phone Johan Aldridge MD Primary Care Provider [phone] Allergies Active Allergy Reactions Criticality Noted Date [...] Severe obesity (BMI 35.0-39. 9) with comorbidity ([facility] V24, [facility] V28) 07/04/2023 Overview (03/26/2024): s/p gastric sleeve (June 2017) Tubular adenoma 07/04/2023 Vitamin D deficiency 07/22/2021 Osteopenia 03/03/2021 Overview (03/26/2024): Bone Density 02/2021. Enchondroma 12/16/2020 Overview (03/26/2024): MRI Left Shoulder: 12/15/20: Repeat plain image 6 mth. Ordered. Atelectasis 04/23/2018 Chronic obstructive pulmonar y disease ([facility] V24, [facility] V28) 04/23/2018 Pulmonary nodules 04/23/2018 Moderate single current epis ode of major depressive disorder ([facility] V24, [facility] V28) 02/10/2016 Amblyopia 02/13/2013 Cortical cataract of both eyes 02/13/2013 Nuclear sclerosis 02/13/2013 Encounters Date Type Department Care Team Description 12/10/2024 11:00 AM EDT Office Visit Adult Medicine [address] [phone] Johan Aldridge MD High cholesterol (Primary Dx); Encounter for long-term (current) use of medications; Other fatigue; Chronic obstructive pulmonary disease, unspecified COPD type ([facility] V24, [facility] V28); Gait abnormality; Left foot drop; Obesity due to excess calories, unspecified class, unspecified whether serious comorbidity present 12/10/2024 8:45 AM EDT Office Visit Urogynecology [address] [phone] Phyllis Mirza MD Urge incontinence (Primary Dx); Urinary urgency; Detrusor overactivity; BRYCE (stress urinary incontinence, female); Overactive bladder 12/06/2024 Telephone Urogynecology [address] [place] [address] Phyllis Mirza MD 11/18/[address] [phone] Johan Aldridge MD 11/11/2024 Telephone Adult [address] [phone] Beth Slaughter LPN 10/29/2024 1:00 PM EDT Office Visit [address] [phone] Johan Aldridge MD Pancreatic lesion (Primary Dx); Compression fracture of body of thoracic vertebra ([facility] V24, [facility] V28) 10/15/2024 8:15 AM EDT Office Visit Bariatric Surgery [address] [place] [phone] Shahram Lopez MD Class 1 obesity due to excess calories with body mass index (BMI) of 33.0 to 33.9 in adult, unspecified whether serious comorbidity present (Primary Dx); Obesity 10/07/[address] [phone] Johan Aldridge MD 10/02/2024 5:00 PM EDT Office Visit Adult [address] [place] [address] Salma Lemons, [employer] Left foot drop (Primary Dx) from Last [...] five yrs COLONOSCOPY W/ BIOPSIES 06/17/16 PROCEDURE: MD COLONOSCOPY W/BIOPSY SINGLE/MULTIPLE; COMMENT: adenoma; repeat in 5 yrs GASTRIC BYPASS 06/23/2017 PROCEDURE: MD GASTRIC RSTCV W/BYP W/SM INT RCNSTJ LIMIT [...] for your loved ones. For example, children's book author or elderly care for an older adult? [...] 10:40 AM EDT Appointment Radiology Department - [place] [phone] 01/28/2025 8:40 AM EDT Consult Gastroenterology - [place] [facility] 175 [facility] [address] [place] [phone] Delicia Negron NP [address] [place] [address] 04/22/2025 9:15 AM EST Office Visit Bariatric Surgery - [place] 175 [facility] [address] [place] [phone] Shahram Lopez MD [address] [place] [address] 06/27/2025 11:30 AM EDT Office Visit Adult Medicine South - [address] [phone] Johan Aldridge MD [address] [place], [place] 12/15/2025 8:30 AM EDT Office Visit Urogynecology - [address] [phone] Phyllis Mirza MD [address] [place] [address] Health Maintenance Due Date Last Done Comments [...] LAB CHEMISTRY METHOD 12/10/2024 6:38 PM EDT [facility] Blood Venous blood specimen / Unknown Venipuncture / Unknown 12/10/2024 11:46 AM EDT 12/10/2024 11:46 AM EDT us Johan Aldridge MD LAB BLOOD ORDERABLES Final Resu lt [facility] [address] [place] [address], * Lipid panel with reflex to direct LDL (12/10/2024 11:46 AM EDT) Cholesterol 137 0 - 200 mg/dL LAB CHEMISTRY METHOD 12/10/2024 5:56 PM EDT [facility] Triglycerides 132 0 - 150 mg/dL LAB CHEMISTRY METHOD 12/10/2024 5:56 PM EDT [facility] HDL 64 >=40 mg/dL LAB CHEMISTRY METHOD 12/10/2024 5:56 PM EDT [facility] LDL Calculated 47 0 - 100 mg/dL LAB CHEMISTRY METHOD 12/10/2024 5:56 PM EDT [facility] Comment:Estimated LDL Calcul ated using equation: Total cholesterol - HDL cholesterol - (Triglycerides/5) VLDL Cholesterol Natanael 26.4 mg/dL LAB CHEMISTRY METHOD 12/10/2024 5:56 PM EDT [facility] Non HDL Chol. (LDL+VLDL) 73 <145 mg/dL LAB CHEMISTRY METHOD 12/10/2024 5:56 PM EDT [facility] Chol/HDL Ratio 2.1 0.0 - 4.4 LAB CHEMISTRY METHOD 12/10/2024 5:56 PM EDT [facility] Blood Venous blood specimen / Unknown Venipuncture / Unknown 12/10/2024 11:46 AM EDT 12/10/2024 11:46 AM EDT us Johan Aldridge MD LAB BLOOD ORDERABLES Final Resu lt [facility] [address] [place] [address], * (ABNORMAL) CBC auto differential (12/10/2024 11:46 AM EDT) WBC 7.2 4.8 - 10.8 K/mcL LAB HEMETOLOGY METHOD 12/10/2024 2:27 PM EDT [facility] RBC 4.20 3.80 - 4.80 M/mcL LAB HEMETOLOGY METHOD 12/10/2024 2:27 PM EDT [facility] Hemoglobin 13.4 11.5 - 16.0 g/dL LAB HEMETOLOGY METHOD 12/10/2024 2:27 PM EDT [facility] Hematocrit 39.6 35.0 - 47.0 % LAB HEMETOLOGY METHOD 12/10[facility]2024 2:[facility] MCV 93.8 79.0 - 98.0 FL LAB HEMETOLOGY METHOD 12/10/2024 2:27 PM EDT [facility] MCH 31.8 27.0 - 32.0 pcg LAB HEMETOLOGY METHOD 12/10/2024 2:27 [facility] MCHC 33.8 32.0 - 37.0 g/dL LAB HEMETOLOGY METHOD 12/10/2024 2:27 PM [facility] RDW 13.0 11.0 - 15.0 % LAB HEMETOLOGY METHOD 12/10/2024 2:27 PM EDT [facility] Platelets 236 130 - 400 K/mcL LAB HEMETOLOGY METHOD 12/10/2024 2:27 PM [facility] MPV 11.1(H) 7.0 - 11.0 FL LAB HEMETOLOGY METHOD 12/10/2024 2:27 PM [facility] NRBC 0.0 <1.0 % LAB HEMETOLOGY METHOD 12/10/2024 2:27 PM [facility] NRBC Absolute 0.00 <0.10 K/mcL LAB HEMETOLOGY METHOD 12/10/2024 2:27 PM [facility] Neutrophils Relative 63.0 % LAB HEMETOLOGY METHOD 12/10/2024 2:27 PM [facility] Lymphocytes Relative 28.7 % LAB HEMETOLOGY METHOD 12/10/2024 2:27 PM [facility] Monocytes Relative 6.7 % LAB HEMETOLOGY METHOD 12/10/2024 2:27 PM EDT [facility] Eosinophils Relative 1.0 % LAB HEMETOLOGY METHOD 12/10/2024 2:27 PM EDT [facility] Basophils Relative 0.3 % LAB HEMETOLOGY METHOD 12/10/2024 2:27 PM EDT [facility] Immature Granulocytes Relative 0.3 % LAB HEMETOLOGY METHOD 12/10/2024 2:27 PM EDT [facility] Neutrophils Absolute 4.53 1.50 - 7.00 K/mcL LAB HEMETOLOGY METHOD 12/10/2024 2:27 PM EDT [facility] Lymphocytes Absolute 2.06 1.00 - 5.00 K/mcL LAB HEMETOLOGY METHOD 12/10/2024 2:27 PM EDT [facility] Monocytes Absolute 0.48 0.20 - 1.00 K/mcL LAB HEMETOLOGY METHOD 12/10/2024 2:27 PM EDT [facility] Eosinophils Absolute 0.07 0.00 - 0.50 K/mcL LAB HEMETOLOGY METHOD 12/10/2024 2:27 PM EDT [facility] Basophils Absolute 0.02 0.00 - 0.20 K/mcL LAB HEMETOLOGY METHOD 12/10/2024 2:27 PM EDT [facility] Immature Granulocytes Absolute 0.02 0.00 - 0.03 K/mcL LAB HEMETOLOGY METHOD 12/10/2024 2:27 PM EDT [facility] Blood Venous blood specimen / Unknown Venipuncture / Unknown 12/10/2024 11:46 AM EDT 12/10/2024 11:46 AM EDT us Johan Aldridge MD LAB BLOOD ORDERABLES Final Resu lt [facility] [address] [place] [address], * (ABNORMAL) Comprehensive metabolic panel (12/10/2024 11:46 AM EDT) Only the most recent of2 resultswithin the time period is included. Sodium 138 133 - 145 mmol/L LAB CHEMISTRY METHOD 12/10/2024 5:56 PM [facility] Potassium 3.5 3.5 - 5.5 mmol/L LAB CHEMISTRY METHOD 12/10/2024 5:56 PM [facility] Chloride 104 96 - 110 mmol/L LAB CHEMISTRY METHOD 12/10/2024 5:56 PM [facility] CO2 27 21 - 32 mmol/L LAB CHEMISTRY METHOD 12/10/2024 5:56 PM [facility] Anion Gap 7 3 - 11 LAB CHEMISTRY METHOD 12/10/2024 5:56 PM [facility] Glucose 125(H) 70 - 100 mg/dL LAB CHEMISTRY METHOD 12/10/2024 5:56 PM [facility] BUN 9 5 - 25 mg/dL LAB CHEMISTRY METHOD 12/10/2024 5:56 PM [facility] Creatinine 0.67 0.50 - 1.10 mg/dL LAB CHEMISTRY METHOD 12/10/2024 5:56 PM [facility] eGFR 92 >=60 mL/min/1. 73m2 LAB CHEMISTRY METHOD 12/10/2024 5:56 PM [facility] Comment:Calculation based on the Chronic Kidney Disease Epidemiology Collaboration (CKD-EPI) equation refit without adjustment for race. BUN/Creatinine Ratio 13.4 LAB CHEMISTRY METHOD 12/10/2024 5:56 PM [facility] Calcium 9.0 8.5 - 10.5 mg/dL LAB CHEMISTRY METHOD 12/10/2024 5:56 PM [facility] AST (SGOT) 23 10 - 42 unit/L LAB CHEMISTRY METHOD 12/10/2024 5:56 PM EDT [facility] ALT (SGPT) 23 10 - 60 unit/L LAB CHEMISTRY METHOD 12/10/2024 5:56 PM EDT [facility] Alkaline Phosphatase 70 42 - 121 unit/L LAB CHEMISTRY METHOD 12/10/2024 5:56 PM EDT [facility] Total Protein 6.7 6.0 - 8.0 g/dL LAB CHEMISTRY METHOD 12/10/2024 5:56 PM EDT [facility] Albumin 3.9 3.2 - 5.0 g/dL LAB CHEMISTRY METHOD 12/10/2024 5:56 PM EDT [facility] Total Bilirubin 0.4 0.0 - 1.4 mg/dL LAB CHEMISTRY METHOD 12/10/2024 5:56 PM EDT [facility] Blood Venous blood specimen / Unknown Venipuncture / Unknown 12/10/2024 11:46 AM EDT 12/10/2024 11:46 AM EDT Johan Aldridge MD LAB BLOOD ORDERABLES Final Resu lt [facility] [address] [place] [address], * MR Lumbar Spine wo Contrast (10/30/2024 8:37 AM EDT) Anatomical Region Laterality Modality L-spine, Spine Magnetic Resonan ce Historical Provider IMG MRI PROCEDURES Final Result * (ABNORMAL) Lipase (10/29/2024 1:20 PM EDT) Lipase 10(L) 13 - 75 unit/L LAB CHEMISTRY METHOD 10/29/2024 5:45 PM EDT [facility] Blood Venous blood specimen / Unknown Venipuncture / Unknown 10/29/2024 1:20 PM EDT 10/29/2024 1:20 PM EDT us Johan Aldridge MD LAB BLOOD ORDERABLES Final Resu lt Performing Organization Address City/[facility]/ZIP Co de Phone Number [facility] [address] [place] [address], [place] [phone] * Amylase (10/29/2024 1:20 PM EDT) Amylase 44 25 - 115 unit/L LAB CHEMISTRY METHOD 10/29/2024 5:45 PM EDT [facility] Blood Venous blood specimen / Unknown Venipuncture / Unknown 10/29/2024 1:20 PM EDT 10/29/2024 1:20 PM EDT us Johan Aldridge MD LAB BLOOD ORDERABLES Final Resu lt Performing Organization Address [facility]/ZIP Co de Phone Number [facility] [address] [place] [address], [place] [phone] * BD Bone Density DXA Axial Skeleton (04/02/2024 1:47 PM EST) Anatomical Region Laterality Modality Wrist, Hip, L-spine Bone Densito metry 04/02/2024 4:06 PM EST Impressions 04/02/2024 4:09 PM EST Osteoporosis by WHO criteria. The [facility] Department of Internal Medicine recommends using [...] alternative screening schedule based on sebastián Mark., [facility] May 05, 2011 for patients [...] Signed Date: 04/02/2024 16:09 ET Workstation ID: [id number] Transcribed By: Self Edit Transcribed Date: 04/02/2024 [...] L1. IMPRESSION: Osteoporosis by WHO criteria. The [facility] Department of Internal Medicine recommendsusing National [...] alternative screening schedule based on sebastián Mark., [facility] for patients with osteopenia [...] Signed Date: 04/02/2024 16:09 ET Workstation ID: [id number] Transcribed By: Self Edit Transcribed Date: 04/02/2024 [...] negative, abstracted Anatomical Region Laterality Modality Other [facility] Provider HEALTH MAINTENANCE Final Result * Hepatitis C Screening (09/18/2014) Hepatitis C Screening abstracted [facility] Provider HEALTH MAINTENANCE Final Result from Last 3 Months or Most Recently Relevant to Health Maintenance Insurance [employer] [facility] PLANS Care Teams Division Road Supervisor Relationship Specialty Start Date End Date Johan Aldridge MD [address] [place] [phone] PCP - General Internal Medicine 04/02/24
--- OUTSIDE RECORDS SUMMARY | 2024-12-19 12:24 | XMS_ITS | Encounter Summary ---
Author Organization [facility] [place] [address] Care Team Providers Care Spiral Weaver Name Role Phone Johan Aldridge MD Primary Care Provider [phone] Reason for Visit * Reason Onset Date Comments faxed order 11/18/2024 [facility] physical DOC ID [id number] Encounter Details Date Type Department Care Team (Late st Contact Info) Description 11/18/2024 Telephone Adult Medicine [address] [phone] Johan Aldridge MD [address] [place] [address] Social History Tobacco Use Types Packs/Day Years [...] loved ones. For example, child and adolescent psychologist or elderly care for an older adult? [...] 3:52 PM EDT [facility] physical DOC ID [id number] received please sign and fax to [phone] documented in this encounter Plan of Treatment Upcoming Encounters Date Type Department Care Team (Late st Contact Info) Description 01/01/2025 10:40 AM EDT Appointment Radiology Department - [address] [phone] 01/28/2025 8:40 AM EDT Consult Gastroenterology - [place] 175 [facility] 175 [facility] [address] [place] [phone] Delicia Negron NP [address] [place], [place] 04/22/2025 9:15 AM EST Office Visit Bariatric Surgery - [place] 175 [facility] [address] [place] [phone] Shahram Lopez MD [address] [place], [place] 06/27/2025 11:30 AM EDT Office Visit Adult Medicine South - [address] [phone] Johan Aldridge MD [address] [place] [address] 12/15/2025 8:30 AM EDT Office Visit Urogynecology - [address] [phone] Phyllis Mirza MD [address] [place] [address] documented as of this encounter Visit Diagnoses Not on filedocumented in this encounter Additional Health Concerns Assessment Noted Time PHQ-9 Depression Total Score: 5 09/26/19 25 6:53 PM EDT documented as of this encounter Care Teams Spiral Weaver Relationship Specialty Start Date End Date Johan Aldridge MD [address] [place] [phone] PCP - General Internal Medicine 04/02/24 documented as of this encounter
--- OUTSIDE RECORDS SUMMARY | 2024-12-19 12:24 | XMS_ITS | Patient Health Record ---
Author Organization [facility] Address [address] [place] [address] Care Team Providers Care Pin Or Clip Fastener Name Role Phone MATILDE TORO Primary Care Provider [phone] Reason For Referral No Information Medications Medication SIG (Take, Route, Frequency, Duration) Notes Start Date End Date Status flovent HFA Active ProAir HFA Active Zoloft Active Crestor Active Mucinex Active Problems Problem Type SNOMED Code ICD Code Onset Dates Problem Status W/U Status Risk Notes Problem Cough (93366391) Cough (R05) Active confirmed Problem Wheezing (49550862) Wheezing (R06.2) Active confirmed Problem Nasal congestion (10924340) Nasal congestion (R09.81) Active confirmed Problem Sore throat (066976182) Sore throat (J02.9) Active confirmed Problem Hyperlipidaemia (64297858) Hyperlipidemia, unspecified hyperlipidemia type (E78.5) Active confirmed Problem Depressive disorder (disorder) (46610499) Depression, unspecified depression type (F32.9) Active confirmed Problem Upper respiratory infection (95065335) Upper respiratory tract infection, unspecified type (J06.9) Active confirmed Problem COPD - Chronic obstructive pulmonary disease (63660837) Chronic obstructive pulmonary disease, unspecified COPD type (J44.9) Active confirmed Plan Of Treatment No Information Insurance Providers Payer Name Payer Address Payer Phone Subscriber Number Group Number Insured Name Patient Relationship to Insured Coverage Start Date Coverage End Date [facility] [address] [place] [phone] [id number] [employer] Self - patient is the insured Medical (General) History Medical History History ICD Code Depression, unspecified depression type F32.9 Hyperlipidemia, unspecified hyperlipidem ia type E78.5 Chronic obstructive pulmonary disease, u nspecified COPD type J44.9 Surgical History Surgery Date(Month/Year) Cearean section neck surgery
== END 2024-12-19 11:07 | disposition home or self-care (01) ==
LOC: HO.PMC 10:48
PROVIDERS: PCP Internal Medicine; Visit Provider Anesthesiology
DX: M25.551 Pain in right hip (principal); M53.3 Sacrococcygeal disorders, not elsewhere classified; M51.369 Other intervertebral disc degeneration, lumbar region without mention of lumbar back pain or lower extremity pain; M54.59 Other low back pain; M47.816 Spondylosis without myelopathy or radiculopathy, lumbar region; M81.0 Age-related osteoporosis without current pathological fracture; S32.010A Wedge compression fracture of first lumbar vertebra, initial encounter for closed fracture; K86.2 Cyst of pancreas
CPT/HCPCS: 99214

== ENCOUNTER → 2024-12-19 10:47 | Outpatient (BNVA) | payer OTHER, SELFPAY | PROVIDERS: PCP Internal Medicine; Visit Provider Anesthesiology | DX: M25.551 Pain in right hip (principal); M47.816 Spondylosis without myelopathy or radiculopathy, lumbar region; M81.0 Age-related osteoporosis without current pathological fracture; M53.3 Sacrococcygeal disorders, not elsewhere classified; M51.369 Other intervertebral disc degeneration, lumbar region without mention of lumbar back pain or lower extremity pain; M54.59 Other low back pain; K86.2 Cyst of pancreas; S32.010A Wedge compression fracture of first lumbar vertebra, initial encounter for closed fracture; X58.XXXA Exposure to other specified factors, initial encounter; Y93.9 Activity, unspecified; Y92.9 Unspecified place or not applicable; Y99.9 Unspecified external cause status | CPT/HCPCS: 99212 ==

== ENCOUNTER 2025-03-07 09:32 | Day surgery (SDC) | payer OTHER, SELFPAY ==
--- OUTSIDE RECORDS SUMMARY | 2025-03-04 02:15 | XMS_ITS | Data Portability ---
Author Organization Formerly [facility] Address [address] [place] [address] [place] [address] Care Team Providers Care Fish Frog Or Oyster Farmer Name Role Phone SAV JIANG Referring Provider EMILY JIANG Referring Provider [phone] EMILY JIANG Primary Care Provider [phone] Assessment Encounter Date Assessment Date Assessment LastModified by Organization Details LastModified Time 06/09/2022 06/09/2022 IMPRESSION: early 2021 onset of left-sided weakness. Past history per PCP includes status post cervical spine surgery for disc disease, COPD f ormer smoker; reactive depression, status post [...] her history nor her exam suggest this. NIRMAL Delgado June 09, 2022 MRI with and without contrast of cervical spine for 1 year of feeling of weakness in the left lower extremity, gait imbalance with falls, a feeling of weakness in the left upper extremity, history of cervical spinal fusion 30 years ago, and bilateral Babinski signs of unknown duration chronicity. Referral sent to [facility] after discussion about this with patient: Reasoning: although patient is within the [place] system, I can see imaging within the [facility] system. Follow-up afterwards pk Not available 06/09/2022 14:17:47 07/06/2022 07/06/2022 IMPRESSION: Late 2020 onset of left-sided weakness. Past history per PCP includes status post cervical spine surgery for disc disease, COPD f ormer smoker; reactive depression, status post [...] 28, [address] Zeinab Locke, [facility]: Cervical cord normal in signal and [...] of unknown duration chronicity . 2022 023 [email or web address] 1 [facility] [address] [facility], [place], [address], 10:25:41 Medication Orders None recorded. Patient TargetsNo targets recorded. Patient Instructions Encounter Date Encounter Id Patient Instructions Last Modified By Organization Details Last Modified Time 06/09/2022 [id number] Discussion acros s issues of diagnoses and [...] cervi marilyn spine , w/wo contr ast [facility] [place] [facility] Access ion Number : [id number] Drake bergeron Name: Leif cruz, Kathya tiwari Record Number : [id number] Date of : 1949 Date of Exam: 2022 Referr ing Physic ze: Yessenia Downing MD Neurol [facility] [address] [address] Exam: MR Cervic al Spine (C-/C+ ) CPT 07112 Room Descri ption: [facility] 1.5 Mob MR Cervic al Spine (C-/C+ ) CPT 61584 INDICA TION: cervic al disc disord er [...] DOM: None. FINDIN GS: ALIGNM ENT, VERTEB LADONNA, MARROW , AND DISCS: The cervic al [...] ral body height s are mainta ined. DISINTEGRATOR OPERATOR IOR FOSSA AND CORD: Visual ized acid operator ior fossa is normal . The cervic [...] osseou s fusion across the disc space. Timber Sizer ior endpla te osteop hytes. No signif [...] ly Signed By: Zeinab ruiz MD [email or web address] [facility]) [address], [place], [address], 06/29/2022 13:03:11 Result Notes Documentation Provider Name and Address Organization Details Recorded Time Mri, Cervical Spine, W/wo Contrast : [facility] Accession Number: [id number] Patient Name: Kathya Mccoy Date of : 1950 Date of Exam: 06-28-2022 Referring Physician: Seth Downing MD Neurology- [address] - [address] [place] [address] Exam: MR Cervical Spine (C-/C+) CPT 74590 Room Description: [facility] 1.5 Mob MR Cervical Spine (C-/C+) CPT 40100 INDICATION: 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 TECHNIQUE: MRI of the cervical spine was performed with and without intravenous contrast utilizing sagittal T1, sagittal T2, sagittal STIR, axial gradient echo, axial T1, and axial T2-weighted sequences, and post-contrast sagittal T1 and axial T1-weighted sequences. 17 mL Dotarem intravenous contrast was administered. COMPARISON: None. FINDINGS: ALIGNMENT, VERTEBRAE, MARROW, AND DISCS: The cervical spine is straightened which could be positional. Alignment is otherwise maintained. There is fusion across the C5-C6 disc space. The remaining intervertebral disc heights are maintained with multilevel marginal osteophytes noted. No significant marrow signal abnormality. Vertebral body heights are maintained. POSTERIOR FOSSA AND CORD: Visualized posterior fossa is normal. The cervical cord is normal in signal and caliber. There is no abnormal enhancement. PARASPINAL TISSUES: Soft tissues of the neck are unremarkable. Major cervical flow voids are present. DETAILED FINDINGS BY LEVEL: C2-C3: Minimal central disc protrusion. Left-sided facet spurring. No significant canal stenosis or neural foraminal narrowing. C3-C4: Broad-based disc bulge with facet and uncovertebral joint spurring resulting in mild spinal canal narrowing. There is moderate left and mild to moderate right neural foraminal narrowing. C4-C5: Broad-based disc osteophyte complex with facet and uncovertebral joint spurring. There is mild canal stenosis. There is severe bilateral neural foraminal narrowing. C5-C6: Anterior fusion and discectomy at this level with osseous fusion across the disc space. Posterior endplate osteophytes. No significant canal stenosis or neural foraminal narrowing. C6-C7: Broad disc osteophyte complex with facet and uncovertebral joint spurring. Mild canal stenosis. Moderate left and moderate to severe right neural foraminal narrowing. C7-T1: Disc bulge and facet spurring. No significant canal stenosis or neural foraminal narrowing. IMPRESSION: Evidence of prior spinal fusion at C5-C6. Multilevel degenerative changes as described above with varying degrees of neural foraminal stenosis at multiple levels, severe bilaterally at C4-C5 and moderate to severe on the right at C6-C7. Electronically Signed By: Zeinab Granados [facility] 06/29/2022 13:03:11 Procedures Surgical History Date Name Laterality Status Provider Name and Address Organization Details Recorded Time 07/06/2022 DATA REVIEW completed Seth Downing MD [address] [place] [address], [phone], [facility] 07/06/2022 13:44:09 Imaging Results None recorded. Procedure Notes None recorded. Medical Equipment None Reported. Allergies Allergen ID Allergen Name Allergen Category Reaction Reaction Severity Criticality Documentation Date Start Date Code Code System Note Provider Name and Address Organization Details Recorded Time 230 Non-stero idal anti-infl ammatory agent (substanc e) medicatio n Not available Not available Not available 06/09/2022 00142 5008 SNSANDRA Coleman [facility] 13:07:50 Medications Name Sig Start Date Stop [...] Updated DateTime 06/09/2022 154.94 cm 36.5 kg/m2 25649.33 g 12 /min Barbara Jared [facility] 06/09/2022 13:06:28 Social History Question Answer Notes LastModified by BigRep Details LastModified Time Tobacco Smoking Status Former Smoker Barbara Jaredkaila cardenas [facility] 06/09/2022 13:09:13 What Is Your Level Of Caffeine Consumption? Moderate 1 Cup Per Day Information not available 06/09/2022 What Is The Highest Grade Or Level Of School You Have Completed Or The Highest Degree You Have Received? [id number] Information not available 06/09/2022 Which Of Your Hands Is Dominant? Right Information not available 06/09/2022 Sex: Unknown Functional Status Question Answer Note LastModified by StyleQizat ion Details LastModified Time What is your level of alcohol consumption? Occasional Information not available 06/09/2022 Mental Status None recorded. Family History Nothing Reported. Medical History Condition Response Claustrophobia N Hospitalizations N Head Trauma/Injury N High Blood Pressure or Hypertension N Thyroid Problems N Lung Disease N COPD or emphysema Y Brain Tumors N Depression Y Encephalitis N Vitamin B12 deficiency N PTSD N Spine Problems N Heart Attack ([place]) N Obstructive Sleep Apnea N Alcoholism N Diabetes N Autoimmune disease N Bleeding Disorder N Arthritis N Tuberculosis N Developmental Problems N Cerebral Palsy N Neck Problems N Cancer N Back Problems N Stroke N Asthma N Heartburn, acid reflux, GERD Y Vitamin D Deficiency N Epilepsy/Seizures N Bipolar Disorder N Sleep Disorder N Hepatitis N Aneurysm N Liver Disease N Heart Disease N Headaches N Fibromyalgia N Osteoporosis N High Cholesterol or Hyperlipidemia Y Kidney Disease N Gynecological HistoryNo gynecological history recorded. Obstetrics History GPAL:G 0 P 0 0 0 0 Past Encounters Encounter ID Performer Location Encounter Start Date Encounter Closed Date Diagnosis/Indication Diagnosis SNOMED-CT Code Diagnosis ICD10 Code Diagnosis IMO Codes Diagnosis Note [id number] Seth Downing MD [address] [place] [address] 06/09/2022 12:37:49 06/09/2022 16:46:48 Keeps losing balance 101687954 R26.81 Cervical d isc prolapse with myelopathy 658470448 M50.03 [id number] Seth Downing MD [address] [place] [address] 07/06/2022 12:35:46 07/06/2022 15:57:29 Keeps losing balance 444766844 R26.81 Cervical d isc prolapse with myelopathy 496934823 M50.03 Health Concerns Section Related Observation LastModified by Organization Detai ls LastModified Time None Recorded Concern Status LastModified by Organization Details LastModified Time None Recorded Advance Directives Directive None Recorded Payers Insurance Date Sequence Insurance Name Policy Number Policy Boles Covered Member ID Boles Member ID Guarantor Name 06/16/2022 1 [facility] (HMO) Kathya Mccoy [id number] Kathya Mccoy 07/11/2022 1 [facility] HEALTH PLAN (POS) [id number] Kathya Mccoy [id number] Kathya Mccoy Notes Date Note Type Note Provider Name and Address Organization Details Recorded Time 06/09/2022 text/html [id number]-hb-kodr normal, finger tapping normal, phrs-mg-zhxs started hesitantly on the left but then [...] post cervical spine surgery for disc disease, COPD f ormer smoker; reactive depression, status post [...] she found it hard to open a jar s he noticed no pain associated with [...] with her left hand. Seth Downing MD [address] [place] [address], [phone], [facility] 06/09/2022 14:19:03 07/06/2022 text/html Follow-up of early 2021 onset of left-sided weakness. Past history per PCP includes status post cervical spine surgery for disc disease, COPD f ormer smoker; reactive depression, status post gastric bypass. She is unaccompanied. Since initial neurology consultation June 09, 2002, she reports no new symptomatology. She and her provide more specific timing information h er left lower extremity weakness began [...] she found it hard to open a jar s he noticed no pain associated with [...] with her left hand. Seth Downing MD [address] [place] [address] [place], [address], [facility] 07/06/2022 13:59:45 OBGyn Episode No OBEpisode recorded.
--- OUTSIDE RECORDS SUMMARY | 2025-03-04 02:15 | XMS_ITS | Data Portability ---
Author Organization ID - [facility] Formerly [facility] Address [address] [place] [phone] Care Team Providers Care Senior Python Developer Name Role Phone EMILY JIANG Primary Care [...] this will only make her symptoms worse. [email or web address] Not available 02/01/2024 10:29:39 Plan of Treatment [...] audio gram No observ ation record ed. [email or web address] [facility] [address], [address], 02/05/2024 21:08:24 02/06/20 07/24/2023 MRI, brain , w/wo contr ast No observ ation record ed. [email or web address] Not Available 2023 11:34:38 Result Notes None recorded. Problems Name Problem SNOMED Code Status Onset Date Resolution Date Notes Provider Name and Address Organization Details Recorded Time Sensorineural hearing loss of bilateral ears 006567910 Active 2023 MASOOD LEONARDO AUD [address] [place] [address], [facility], [place], [address], [facility] [place] 4 09:38:56 Dizziness and giddiness 399915080 Active [address], [address] [facility], [place], [address], [facility] - [facility] [place] 4 09:39:10 Unsteady when walking 18962901 Active 2023 MARIE GALEANO MD [address] [address], [place], [address], [facility] - [facility] 4 10:26:55 Monoparesis of lower limb 686193941 Active 2023 MARIE GALEANO MD [address] [address], [place], [address], [facility] - [facility] [place] 4 10:27:39 Benign paroxysmal positional vertigo 025277682 Active 2023 MARIE GALEANO MD [address] [facility] [address] [facility], [place], [address], [facility] - [facility] 4 10:27:44 Problem Notes None recorded. Procedures Surgical History Date Name Laterality Status Provider Name and Address Organization Details Recorded Time 02/01/2024 Comp Audio with Tymps - 76254 & 86365 completed MASOOD LEONARDO AUD [address] [facility],[address], [address], [facility] - [facility] [place] 02/01/2024 09:38:49 Imaging Results None recorded. Procedure [...] ICD10 Code Diagnosis IMO Codes Diagnosis Note [id number] MARIE GALEANO MD [facility] [address] [address] 02/01/2024 09:18:07 02/01/2024 10:25:03 Sensorineural hearing loss of bilateral ears 959791433 H90.3 Right Ear:Mild to severe SNHL with [...] amplificat ion bilaterall y. Dizziness and giddiness 926564036 R42 Unsteady when walking 22 966883 R26.89 Monoparesi s of lower limb 206078600 G83.12 Benign par oxysmal positional vertigo 478448424 H81.12 Patient with episodic positional ly induced vertigo. Storm-Hallpi ke was positive for vertigo and rotary nystagmus with the head to the left. We discussed that the patient s pattern of symptoms and physical exam findings are most consistent with benign paroxysmal positional vertigo (BPPV). The pathophysi ology of BPPV was discussed in detail. Patient was provided with a referral to [facility] for Aura maneuvers and vestibular therapy. [...] with her overall balance function as well. [id number] JUANA MCKEON MEDINA [address] [address] 02/28/2024 12:45:34 03/01/2024 07:25:57 Sensorineural hearing loss of bilateral ears 666637029 H90.3 Health Concerns Section Related Observation LastModified by Organization Leidy pickett LastModified Time None Recorded Concern Status LastModified by Organization Details LastModified Time None Recorded Advance Directives Directive None Recorded Payers Insurance Date Sequence Insurance Name Policy Number Policy Boles Covered Member ID Boles Member ID Guarantor Name 02/28/2024 1 [facility] - [employer] PLAN (POS) [id number] Kathya Mccoy [id number] Kathya Mccoy Notes Date Note Type Note Provider Name and Address Organization Details Recorded Time 02/01/2024 text/html 73-year-old female who comes in today for evaluation of [...] assistance while ambulatory. MARIE GALEANO MD [address] [facility],[address], [address], [facility] - [facility] 02/01/2024 10:30:16 02/28/2024 text/html Patient with reported gradual onset SNHL here with her to discuss fitting of amplification as a first time user. Patient has seen an tool pusher who has provided medical clearance for the [...] to her vestibular therapy. JUANA MCKEON 100 [facility],[address], [address], [facility] 02/28/2024 13:31:59 OBGyn Episode No OBEpisode recorded.
--- NOTE | 2025-03-04 11:24 | HO.ANESPROP2 ---
Documented by User: Deidra Gooden NP 03/04/25 11:33 HPI - Anesthesia Eval Consult details Narrative: 75 yr old female for?L3-L4-DR L5 Medial Branch [employer] AB Park[place]: Pt with hx of foot left foot drop > 2 years. Pt currently following with physical therapy; Was recommend AFO. Follows neurology(posey) and is considered parkinson's COPD: on trelegy; not needing her albuterol has marked improvement on the trelegy; following pulm annually () seen last 07/2023 Anesthesia Pre-Procedure Meds Is the patient on any of the following meds?: GLP1/DPP4 PMFSH Active Problems Active Problems: All Active Problems (Updated 10/03/24 @ 07:34 by Pancho Olsen MD) Spondylosis of lumbar region without myelopathy or radiculopathy (Acute) Pancreatic cyst (Acute) Compression fracture of L5 vertebra (Acute) Compression fracture of L1 lumbar vertebra (Acute) Cervical disc disorder (Acute) Status post lumbar spine surgery for decompression of spinal cord (Acute) Lumbar degenerative disc disease (Acute) Greater trochanteric bursitis of both hips (Acute) Discogenic lumbar pain (Acute) Right hip pain (Acute) Sacroiliac joint dysfunction of right side (Acute) Status post kyphoplasty (Acute) Lumbar back pain with radiculopathy affecting left lower extremity (Acute) Lumbar stenosis with neurogenic claudication (Acute) Lumbar spondylosis (Acute) Cervical spondylosis with myelopathy and radiculopathy (Acute) T12 compression fracture (Acute) Osteoporosis (Acute) Past Medical History Medical History Arthritis Left shoulder pain Left-sided weakness Hyperlipidemia GERD (gastroesophageal reflux disease) Depression COPD (chronic obstructive pulmonary disease) T12 compression fracture Osteoporosis Cervical spondylosis with myelopathy and radiculopathy Lumbar spondylosis Family History Family history of problems with anesthesia: No Surgical History Surgical History Hx of decompressive lumbar laminectomy History of sleeve gastrectomy Hx of kyphoplasty H/O colonoscopy H/O: section H/O cervical spine surgery History of Problems with Anesthesia: No Social History Social History Are you a primary animal care technician to a significant other at home: No Do you presently have visiting nurse or other home services: No Alcohol intake: current Alcohol intake frequency: holidays/special occasions only Patient Tobacco Use Status: Former Tobacco user Tobacco use type: Cigarette Second Hand Smoke Exposure: No Use of substances other than those prescribed or required for medical reasons: No Substance Use Type: Caffiene Have you been hit, kicked, punched, or otherwise hurt by someone within the past year? If so, by whom?: No Are you DNR?: No Advance Directives: No Advance Directives Information Provided: Yes Advance Directives on File: No Patient : No : No Meds Allergies Allergy/AdvReac Type Severity Reaction Status Date / Time alendronate sodium (From Allergy Intermediate Chest Pain Verified 12/19/24 10:53 Fosamax) Home Medications ?Medication ?Instructions ?Recorded ?Confirmed ?Last Taken ?Type albuterol sulfate 90 mcg/actuation 1 puff inhalation QID PRN 04/05/22 03/07/25 03/07/25 History aerosol inhaler Shortness Of Breath ergocalciferol (vitamin D2) 1,250 1,250 mcg PO QWEEK 04/05/22 03/07/25 08/18/22 History mcg (50,000 unit) capsule (Vitamin D2) fluoxetine 10 mg capsule 10 mg PO DAILY 04/05/22 03/07/25 08/18/22 History fluticasone fur. 100 mcg-umeclid 1 ea inhalation DAILY 04/05/22 03/07/25 08/18/22 History 62.5 mcg-vilant 25 mcg inhalat.powder (Trelegy Ellipta) rosuvastatin 10 mg tablet 10 mg PO BEDTIME 04/05/22 03/07/25 01/15/24 History multivitamin 1 tab PO QAM 11/28/22 03/07/25 Unknown History omeprazole 20 mg capsule,delayed 20 mg PO DAILY 11/28/22 03/07/25 03/07/25 History release trazodone 50 mg tablet 50 mg PO BEDTIME 11/28/22 03/07/25 Unknown History lactulose 10 gram/15 mL oral PO 01/10/24 Unknown History solution (Enulose) sennosides 8.6 mg tablet (senna) 17.2 mg PO DAILY PRN constipation 01/10/24 03/07/25 Unknown History trospium 20 mg tablet 20 mg PO BID 01/10/24 03/07/25 Unknown History ropinirole 2 mg tablet 2 mg PO TID 08/29/24 03/07/25 Unknown History semaglutide (weight loss) 0.5 0.5 mg subcut QWEEK 08/29/24 03/07/25 Unknown History mg/0.5 mL subcutaneous pen injector (Wegovy) Assessment and Plan Final Anesthetic Review Family History of Problems with Anesthesia: No History of Problems with Anesthesia: No Documented by User: Kenny Fitzgerald MD 03/07/25 12:13 PMF Past Medical History Medical History Arthritis Left shoulder pain Left-sided weakness Hyperlipidemia GERD (gastroesophageal reflux disease) Depression COPD (chronic obstructive pulmonary disease) T12 compression fracture Osteoporosis Cervical spondylosis with myelopathy and radiculopathy Lumbar spondylosis Surgical History Surgical History Hx of decompressive lumbar laminectomy History of sleeve gastrectomy Hx of kyphoplasty H/O colonoscopy H/O: section H/O cervical spine surgery Social History Social History Are you a primary animal care technician to a significant other at home: No Do you presently have visiting nurse or other home services: No Alcohol intake: current Alcohol intake frequency: holidays/special occasions only Patient Tobacco Use Status: Former Tobacco user Tobacco use type: Cigarette Second Hand Smoke Exposure: No Use of substances other than those prescribed or required for medical reasons: No Substance Use Type: Caffiene Have you been hit, kicked, punched, or otherwise hurt by someone within the past year? If so, by whom?: No Are you DNR?: No Advance Directives: No Advance Directives Information Provided: Yes Advance Directives on File: No Patient : No : No Meds Allergies Allergy/AdvReac Type Severity Reaction Status Date / Time alendronate sodium (From Allergy Intermediate Chest Pain Verified 12/19/24 10:53 Fosamax) Home Medications ?Medication ?Instructions ?Recorded ?Confirmed ?Last Taken ?Type albuterol sulfate 90 mcg/actuation 1 puff inhalation QID PRN 04/05/22 03/07/25 03/07/25 History aerosol inhaler Shortness Of Breath ergocalciferol (vitamin D2) 1,250 1,250 mcg PO QWEEK 04/05/22 03/07/25 08/18/22 History mcg (50,000 unit) capsule (Vitamin D2) fluoxetine 10 mg capsule 10 mg PO DAILY 04/05/22 03/07/25 08/18/22 History fluticasone fur. 100 mcg-umeclid 1 ea inhalation DAILY 04/05/22 03/07/25 08/18/22 History 62.5 mcg-vilant 25 mcg inhalat.powder (Trelegy Ellipta) rosuvastatin 10 mg tablet 10 mg PO BEDTIME 04/05/22 03/07/25 01/15/24 History multivitamin 1 tab PO QAM 11/28/22 03/07/25 Unknown History omeprazole 20 mg capsule,delayed 20 mg PO DAILY 11/28/22 03/07/25 03/07/25 History release trazodone 50 mg tablet 50 mg PO BEDTIME 11/28/22 03/07/25 Unknown History lactulose 10 gram/15 mL oral PO 01/10/24 Unknown History solution (Enulose) sennosides 8.6 mg tablet (senna) 17.2 mg PO DAILY PRN constipation 01/10/24 03/07/25 Unknown History trospium 20 mg tablet 20 mg PO BID 01/10/24 03/07/25 Unknown History ropinirole 2 mg tablet 2 mg PO TID 08/29/24 03/07/25 Unknown History semaglutide (weight loss) 0.5 0.5 mg subcut QWEEK 08/29/24 03/07/25 Unknown History mg/0.5 mL subcutaneous pen injector (Rayna) Exam Airway Mallampati Class: II TM Dist: <=3cm Neck ROM: Full Loose/Missing/Broken Teeth: No Heart: ok Lungs: ok Assessment and Plan Assessment Anesthesia Assessment: Anesthesia Plan Discussed and Chart Reviewed Final Anesthetic Review NPO: Yes ASA Class: III and IV Final Preanesthetic Review: No Changes in Pt Med Stat, Meds/Allgs Chart Reviewed, Consent Obtained/Reviewed and Anes Risks/Benef Reviewed Patient Risk: High Procedure Risk: Intermediate Anesthetic Plan Anesthetic Plan: MAC: and Agree w/ Assess. and Plan Disposition: Standard PACU
[2025-03-05 14:03] VITALS: BMI 34.7
[2025-03-07] VITALS (7 sets, daily range): BP systolic 97–116; BP diastolic 45–66; PULSE 91–97; RESP 13–16; TEMP 36.7–37.1; O2SAT 95–98
--- NOTE | ~2025-03-07 | FL_ITS ---
EXAMINATION: FL GUIDANCE ONLY HISTORY: L3 L4 DR L5 RFA BILATERAL COMPARISON: None available. TECHNIQUE: Fluoroscopy time: 1 minute, 13 seconds. Cumulative Dose: 19.30 mGy. DAP: 635.14 uGym2 Images: 4. FINDINGS: The endoscopic spot films of the lumbar spine demonstrate needles in the regions of the bilateral L3-4, L4-5, and L5-S1 facet joints. FL/FL guidance in OR IMPRESSION: Fluoroscopy during procedure. Please see procedure report for additional information. Electronically signed by: Bigg Aiken MD 03/07/2025 02:[address] [facility]
[2025-03-07] MEDS: Lactated Ringers 1,000 ML 100 ML IVCONT (10:38)
--- NOTE | 2025-03-07 12:00 | P.HPSUR_ITS ---
Pre-Procedural Eval Section A - 24 Hr Update-Section A only Date of Service: 03/07/25 The patient is an INPATIENT: No Changes since office visit: Yes Patient answered all questions The patient has been examined within 24 hours of the surgical procedure. The History & Physical has been completed within 30 days and I have reviewed it.: No Section B - Complete if H&P > 30 days Chief Complaint: Spondylosis without myelopathy or radiculopathy, Details of Present Illness: as above Relevant Family History (Specify if Yes): No Relevant Social History: None Present Medications: None Medical History: No relevant PMH History of Previous Operations: Relevant previous surgery/procedure and date(s) Allergies: Allergies Allergy/AdvReac Type Severity Reaction Status Date / Time alendronate sodium (From Allergy Intermediate Chest Pain Verified 12/19/24 10:53 Fosamax) Review of Systems Sugical H&P ROS: Negative: Cardiovascular, Respiratory, Neurological, Psychiat sandra, Hem-Onc, Allergic/Immunologic, Gastrointestinal, Genitourinary, Integumentary and Eyes/Ears/Nose/Throat and Yes, Specify: Constitution (obesity), Musculoskeletal (spondylosis lumbar without myelo/radiculopathy) and Endocrine (osteoporosis) Exam Surgical H&P Exam: Normal: HEENT, Normal: Heart, Normal: Lungs, Normal: Extremities, Normal: Abdomen, Normal: Skin and Normal: Neurological Plan Diagnosis/Plan: Unchanged I have reviewed the history and physical and performed a pertinent physical examination on my patient. No changes have occurred unless specified. Time Spent With Patient Time: Total time managing care of this patient today __5__ minutes.
--- NOTE | 2025-03-16 18:42 | P.OP_ITS ---
Operative Note Operative Note Date of Service: 03/07/25 Narrative: Radiofrequency ablation bilateral L3- L4- DRL5 medial branches. 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 Postoperative diagnosis: the same. Blood loss - none. Immediate complications were not observed. Informed consent was explained to the patient. All questions were explained and answered.? The patient was taken inside of the operating room where she was positioned prone on the operating table.? Time-out was performed delineating patient's name and date of , correct site, side, the nature of the procedure, patient's allergy..? All operating room staff was participating in OR time-out procedure.? [place] [employer] monitors were applied.? Patient was minimally sedated and I was able to maintain the verbal contact with the patient throughout the procedure. Her lower back was prepped with ChloraPrep and draped with sterile towels.? C- arm was brought over the operating field and sq picture of L4-5 vertebra as and S1 vertebra were delineated on the screen. Points of interest were delineated as connection of superior articular process of L4 and L5 vertebra bilaterally with corresponding transverse processes as well as connection of the sacral alae bilaterally with superior articular process of S1.? The projection of the point of interest to the skin were injected with the small amount of local anesthetic lidocaine 2% 1-1.5 cc.? And after that 18 gauge 100 mm radiofrequency cannulas were driven to the point of interest in tunnel vision fashion. After needles gently contacted the bone at the point of interests the stylets were removed from the needles and electrodes were inserted into the needles.? Electrodes were connected to the radiofrequency machine and testing was performed for the patient's motor function.? There were no pathological motor response indicating stimulation of somatic nerves.? After that electrodes were removed and each needle was injected with small amount of mixture of lidocaine 2% and ropivacaine 0.5% one-to-one 1-1.5 cc mixed with trace amount of Kenalog.? Upon completion of the injections the electrodes were reinserted and energy of 89 degree cent igrade for 90 seconds was applied to each needle 1st on the right side and then on the leftt.??Upon completion of the injections needles were removed and sterile dressings were applied patient was taken outside of the operating room to recovery room. There were no blood loss,
== END 2025-03-07 14:19 | disposition home or self-care (01) ==
PROVIDERS: PCP Internal Medicine; Visit Provider Anesthesiology
PROC: (CPT 64635; principal; 2025-03-07 11:30)
DX: M47.816 Spondylosis without myelopathy or radiculopathy, lumbar region (principal); M81.0 Age-related osteoporosis without current pathological fracture; M53.3 Sacrococcygeal disorders, not elsewhere classified; M51.369 Other intervertebral disc degeneration, lumbar region without mention of lumbar back pain or lower extremity pain; M54.59 Other low back pain; M25.551 Pain in right hip; K86.2 Cyst of pancreas; E78.5 Hyperlipidemia, unspecified; J44.9 Chronic obstructive pulmonary disease, unspecified; F32.A Depression, unspecified; Z98.1 Arthrodesis status; Z87.81 Personal history of (healed) traumatic fracture; Z79.51 Long term (current) use of inhaled steroids; Z79.899 Other long term (current) drug therapy; Z79.85 Long-term (current) use of injectable non-insulin antidiabetic drugs; Z88.8 Allergy status to other drugs, medicaments and biological substances; Z98.890 Other specified postprocedural states; Z98.84 Bariatric surgery status; Z87.891 Personal history of nicotine dependence
CPT/HCPCS: 64635; 64636 ×2; J2003; J2250; J2704; J2795; J3010; J3301

== ENCOUNTER → 2025-03-07 09:32 | Outpatient (BNV) | payer OTHER, SELFPAY | PROVIDERS: PCP Internal Medicine; Visit Provider Anesthesiology | DX: M47.816 Spondylosis without myelopathy or radiculopathy, lumbar region (principal) | CPT/HCPCS: 64635; 64636 ==

== ENCOUNTER 2025-03-27 08:38 | Outpatient (AMB) | payer OTHER, SELFPAY ==
[2025-03-27 09:02] VITALS: BP 118/65; PULSE 108; RESP 16; O2SAT 94; BMI 27.1
--- NOTE | 2025-03-27 09:02 | MHC.OFFVIS ---
Vital Signs 03/27/25 09:02 Height 4 ft 11 in Weight 134 lb BMI 27.1 BP 118/65 Respiration 16 Pulse 108 H Pulse Source Pulse Oximeter Pulse Oximetry (%) 94 Oxygen Delivery Method Room Air Intake Visit Reasons: Follow Up Tack Puller Required: No Accompanied by: [employer] [facility] Allergies alendronate sodium (From Fosamax) Allergy (Intermediate, Verified 03/27/25 09:04) Chest Pain HPI Comments Details: Kathya is back in my office after radiofrequency ablation of the bilateral L3, L4, dorsal ramus L5 medial branches. She reported that for the 1st 7 days after the procedure she had excellent pain relief and improved mobility. However after a week after the procedure she started to feel pain in the projection of the left sacroiliac joint radiating down to the left hip. Her pain in the left knee also increased. It is possible that all loose pains came up on the foreground after major pain generators in the lower back started to get better. She is scheduled for physical therapy with her primary care physician referral. She will start to do physical therapy in April. She has exercising machine at home which improves her pain. I strongly recommend her to continue exercising machine as well as to start physical therapy in April. She is asking me to help her to sleep at night. She reports spastic pain in the muscles at night. I will start her on tizanidine 4 mg q.h.s.. She does not have any beta-blockers on board. Prior: diagnostic medial branch block L3-L4 dorsal ramus L5 bilateral. Patient reported absence of pain for the 1st 8 hours after the procedure. Reports improved mobility and activities of daily living. She reports significant improvement even now, 2 days after the procedure. I offered the patient sprint PNS versus RFA. Patient chose to go for Sprint PNS. Requests me to schedule the procedure in January. Last time patient visited me with complains on most lower back pain. She reported that pain got more severe after minor trauma. She has a history of VCF of T12 and L1. I suspected lower lumbar compression fractures. I sent her for the MRI- The MRI is negative for the new compression fractures. The physical exam is as below. I suspect this patient is suffering from spondylosis of lumbar spine among other things. Incidental finding on the MRI she has 6 mm pancreatic cyst. It needs to be assessed by Gastroenterology. I will make appropriate referral. Prior: In the past she received kyphoplasty from me at T12 compression fracture. She recently fell on her buttocks and after that she went for MRI which demonstrated L1 compression fracture. Last time I was seeing her for diagnosis of VCF I recommended her to consider treatment for osteoporosis with primary care physician or pediatric speech language pathologist. Her primary care physician started her on alendronate the patient reported unpleasant and intolerable side effects. Unfortunately instead of switching medication her primary care physician just stopped the alendronate. Now the patient is suffering from yet another compression fracture of L1 this time. She reports severe pain in the projection of the upper lumbar spine. She reports difficulty breathing, she reports difficulty taking slow deep breath her pain is being exacerbated when she tries to do that. I will schedule this patient for kyphoplasty as soon as possible. She still has edema at L1 vertebra so we need to provide the service expeditiously. PRIOR: Patient is a pleasant 72 years old female with a history of T12 compression fracture, prior neck surgery and osteoporosis, presents today with worsening chronic low back pain for the past 8 months. She is accompanied by her . Patient reports left foot drop with walking, left sided weakness and frequent balance issues with walking. Patient uses a cane with ambulation. She reports a fall 2 weeks ago when she was getting out of her car and her left leg gave out. Patient shows healing abrasions on her right elbow and left palm due to recent fall. Reports previous cervical spine surgery, anterior approach. She has seen her neurologist Dr. Downing yesterday and he ordered the patient to undergo cervical MRI with and without IV contrast at [facility]. Her back is axial, spreads across her lower back without radiation to her lower extremities. She reports tenderness in the projections of both GTB. Patient reports limited cera. She also reports left shoulder pain that has been relieved with recent cortisone injection by her orthopedic provider. Patient reports bilateral foot pain and pain in her big toes. She has completed physical therapy and home exercise program in the past with temporary and minimal symptoms improvement. Currently she takes Tylenol with partial pain relief. She rates her pain at 5/10. [facility], [facility] Medical History Arthritis Left shoulder pain Left-sided weakness Hyperlipidemia GERD (gastroesophageal reflux disease) Depression COPD (chronic obstructive pulmonary disease) T12 compression fracture Osteoporosis Cervical spondylosis with myelopathy and radiculopathy Lumbar spondylosis Surgical History Hx of decompressive lumbar laminectomy History of sleeve gastrectomy Hx of kyphoplasty H/O colonoscopy H/O: section H/O cervical spine surgery Social History Are you a primary child care associate teacher to a significant other at home: No Do you presently have visiting nurse or other home services: No Alcohol intake: current Alcohol intake frequency: holidays/special occasions only Patient Tobacco Use Status: Former Tobacco user Tobacco use type: Cigarette Second Hand Smoke Exposure: No Substance Use Type: Caffiene Review of Systems Const All systems reviewed & are unremarkable except as noted in HPI and below ENT Reports Normal hearing present Neuro Reports Normal hearing present, Denies confusion and Denies Sensory deficit (Neuro) Psych Denies confusion Physical Exam Vital Signs: Last Vital Signs Pulse 108 H 03/27/25 09:02 Resp 16 03/27/25 09:02 BP 118/65 03/27/25 09:02 Pulse Ox 94 03/27/25 09:02 Oxygen Delivery Method Room Air 03/27/25 09:02 BMI result Body Mass Index 27.1 Const General: cooperative, no acute distress, alert, awake and well groomed; No confusion Nutritional Appearance: average body habitus Orientation/consciousness: patient oriented x3 and No confusion Limitations: no limitations HEENT Head: Yes normal to inspection, Yes normocephalic, Yes atraumatic and No occipital foramen tenderness Ears: hearing grossly normal bilaterally Face and sinus: Yes normal facial exam and Yes face symmetric Mouth: moist mucous membranes Eyes General: appearance normal, both eyes and all related structures Visual Ruiz: normal visual ruiz by confrontation Pupils: Equal, round and reactive pupils present EOM: EOMs intact bilaterally Neck Other: Slightly decreased cervical ROM in all planes. Denies pain with cervical extension and flexion. Spurling compression test equivocal. Pain is unchanged by Spurling maneuver with retraction. Elvey's tension test positive on the left, with radiation of pain from neck to wrist. Lhermitte's test was negative. Diminished DTRs on the left, +2 on the right. Patient demonstrated 5/5 right and 4/5 left motor strength of bilateral upper extremities. 2 + radial pulses. Significant tightness throughout left upper trapezius as well as TTP throughout bilateral upper trapezius muscles. No paravertebral tenderness over facet joints bilaterally. Neck: Yes normal visual inspection, Yes no lymphadenopathy, Yes no meningeal signs, Yes supple, No anterior neck swelling and Yes no JVD Resp Effort & Inspection: normal respiratory effort, able to speak in complete sentences, no audible wheezes, no cough and symmetric chest movement Cardio Jugular venous distension: no JVD Bruits: no carotid bruits Peripheral pulses: radial pulses present, posterior tibial pulses present and dorsalis pedis present GI Inspection: Yes normal to inspection, No Abdominal wall edema and Yes obesity Palpation (GI): Soft to palpation and nontender General: Yes no CVA tenderness Back/Spine/Pelvis Other: Patient is able to walk and stand on heels and tip toes with mild difficulty on the left. Antalgic gait with limping on the right. Can flex forward to 70-75 degrees and extend to 5-10 degrees before experiencing lumbar pain. Demonstrates 5/5 strength of quadriceps bilaterally as well as flexion/dorsiflexion of bilateral feet against resistance. 2+ pedal pulses bilaterally. Straight leg rise with dorsiflexion negative bilaterally. In fact patient to demonstrate her pain today performed leg elevation more than 90 degrees and reported only pain in the knee. Diminished patellar and achilles reflexes bilaterally. Facet loading test negative bilaterally Severe tenderness on palpation in the projection of the lower lumbar spine. Tenderness on percussion in the projection of the lower lumbar spine. Back: no CVA tenderness Cervical Spine: normal cervical lordosis, loss of normal cervical lordosis, cervical muscular tenderness, No pain with cervical ROM, Cervical spine scars present (anterior), No Cervical spine tenderness and No step off deformity Skin General skin exam: no rashes or lesions noted Trauma: abrasion (healing abrasions right elbow and left palm r/t recent fall) Neuro General: patient oriented x3, tone normal, moves all extremities, no meningeal signs, CN's II-XI intact bilaterally and No confusion Cranial nerves: Yes Equal, round and reactive pupils present, Yes Bilaterally intact EOM present and Yes Normal hearing present Cognition (Neuro): normal cognition Gait exam (Neuro): Antalgic gait present, Shuffling gait present (on the left) and No Assistive device used Motor exam (neuro): 5/5 motor strength present throughout, no tremor noted, Normal motor muscle tone present throughout and Motor abnormalities not present Sensory Exam: No Sensory deficit (Neuro) Coordination: Romberg test positive Extrem General: Yes capillary refill normal, Yes no clubbing, cyanosis or edema and Yes no calf tenderness Psych Appearance: grossly normal and well kempt Mental Status: mental status grossly normal Speech and movement: Normal speech and movement present and Clear speech present Affect: normal affect Attitude: cooperative Thought process: Normal thought process present Thought content: Normal thought content present Insight: Good insight present (Psych) Judgement: Good judgement present (Psych) Results Reviewed Results Reviewed: MR LUMBAR SPINE WITHOUT CONTRAST CLINICAL INFORMATION: Wedged compression fracture fifth lumbar vertebra. COMPARISON: MRI dated July 21, 2022 demonstrated compression fracture of T12 vertebra. TECHNIQUE: MRI of the lumbar spine was obtained using routine sequences without contrast. FINDINGS: Last rib-bearing vertebra labeled T12. There is bone marrow STIR signal abnormality within vertebral body of L1. There is a 20% volume loss of the vertebral body. There is no retropulsion. Old compression deformity representing 30-40% volume loss at T12 and associated hyperintense signal in all sequences likely related to prior vertebroplasty/kyphoplasty procedure. Bone marrow inhomogeneity. Grade 1 anterolisthesis L5-S1. Conus medullaris and 6 at intervertebral disc L1-2 level with normal signal. T11-12: 3 mm retropulsion from prior compression deformity without compression upon neural elements. T12-L1: No disc herniation. No neuroforamina stenosis. No compression upon neural elements. L1-2: No disc herniation. No neuroforamina stenosis. L2-3: Broad-based disc bulging. Reduced AP diameter of the thecal sac. Bilateral facet joint hypertrophy. Bilateral neuroforamina narrowing. No compression upon neural elements. L3-4: Broad-based disc bulging. Reduced AP diameter of the thecal sac. Bilateral facet joint and ligamentum flavum hypertrophy. Bilateral neuroforamina narrowing. L4-5: Broad-based disc bulging. Bilateral facet joint hypertrophy. Left ligamentum flavum hypertrophy. Encroaching of the neural elements of the thecal sac the L5 nerve roots on the lateral recesses. Bilateral neuroforamina narrowing encroaching the L4 exiting nerve root. Right hemilaminectomy. L5-S1: Broad-based disc bulging. Facet joint and ligamentum flavum hypertrophy. Reduced AP diameter of the thecal sac. Bilateral neuroforamina narrowing. There is likely encroachment of the neural elements. No prevertebral compartment hematoma, mass or fluid collection. There are least 2, less than 6 mm cystic characteristic lesions in the pancreas. Small cystic lesions in the kidneys. MR/MR lumbar spine wo con IMPRESSION: Acute to subacute superior endplate compression deformity presenting 20% volume loss at L1 without gross retropulsion or compression upon neural elements. Multilevel lumbar spondylosis, L2-3 to L5-S1 resulting in central spinal canal and bilateral neuroforamina narrowing/stenosis at L4-5 L3-4 and to a lesser extent L5-S1 levels encroaching the neural elements. Less than 6 mm cystic lesions, pancreas. Assessment & Plan Assessment & Plan (1) Right hip pain: Code(s): M25.551 - Pain in right hip Category: Medical (2) Sacroiliac joint dysfunction of right side: Code(s): M53.3 - Sacrococcygeal disorders, not elsewhere classified Category: Medical (3) Lumbar degenerative disc disease: Code(s): M51.36 - Other intervertebral disc degeneration, lumbar region Category: Medical (4) Discogenic lumbar pain: Code(s): M54.59 - Other low back pain Category: Medical (5) Lumbar spondylosis: Code(s): M47.816 - Spondylosis without myelopathy or radiculopathy, lumbar region Category: Medical (6) Osteoporosis: Code(s): M81.0 - Age-related osteoporosis without current pathological fracture Category: Medical (7) Compression fracture of L1 lumbar vertebra: Code(s): S32.010A - Wedge compression fracture of first lumbar vertebra, initial encounter for closed fracture Category: Medical (8) Pancreatic cyst: Code(s): K86.2 - Cyst of pancreas Category: Medical (9) Spondylosis of lumbar region without myelopathy or radiculopathy: Code(s): M47.816 - Spondylosis without myelopathy or radiculopathy, lumbar region Category: Medical Plan After radiofrequency ablation of the bilateral medial branches L3, L4, L5 bilateral patient reported absence of axial back pain. Now she has pain in the projection of the sacroiliac joint on the left with radiation down to the left lower extremity. She will start physical therapy in April on the referral of primary care physician. Her next of kin also reported today that she feels her pain improved after exercises on the exercise machine at home. I recommended her to do those exercises at least once a day. I will see patient in 6 months. I will prescribe her tizanidine to help her sleep better and avoid spastic muscular pains at night. Medications: New tizanidine 4 mg PO BEDTIME PRN 30 caps 8RF muscle spasticity 30 days Coding Level of Care Code Est Pt Level 3 (61503) Diagnoses Right hip pain M25.551 Sacroiliac joint dysfunction of right side M53.3 Lumbar degenerative disc disease M51.36 Discogenic lumbar pain M54.59 Lumbar spondylosis M47.816 Osteoporosis M81.0 Compression fracture of L1 lumbar vertebra S32.010A Pancreatic cyst K86.2 Spondylosis of lumbar region without myelopathy or radiculopathy M47.816
== END 2025-03-27 09:19 | disposition home or self-care (01) ==
LOC: HO.PMC 08:39
PROVIDERS: PCP Internal Medicine; Visit Provider Anesthesiology
DX: M25.551 Pain in right hip (principal); M53.3 Sacrococcygeal disorders, not elsewhere classified; M51.369 Other intervertebral disc degeneration, lumbar region without mention of lumbar back pain or lower extremity pain; M54.59 Other low back pain; M47.816 Spondylosis without myelopathy or radiculopathy, lumbar region; M81.0 Age-related osteoporosis without current pathological fracture; S32.010A Wedge compression fracture of first lumbar vertebra, initial encounter for closed fracture; K86.2 Cyst of pancreas
CPT/HCPCS: 99213

== ENCOUNTER → 2025-03-27 08:38 | Outpatient (BNVA) | payer OTHER, SELFPAY | PROVIDERS: PCP Internal Medicine; Visit Provider Anesthesiology | DX: M53.3 Sacrococcygeal disorders, not elsewhere classified (principal); M25.551 Pain in right hip; M51.369 Other intervertebral disc degeneration, lumbar region without mention of lumbar back pain or lower extremity pain; M54.59 Other low back pain; M47.816 Spondylosis without myelopathy or radiculopathy, lumbar region; M81.0 Age-related osteoporosis without current pathological fracture; S32.010A Wedge compression fracture of first lumbar vertebra, initial encounter for closed fracture; K86.2 Cyst of pancreas | CPT/HCPCS: 99212 ==